=== PATIENT | male | born 1985 | race Caucasian/White ===

== ENCOUNTER 2020-07-22 16:06 | Outpatient (CLI) | payer MEDICAID, SELFPAY ==
--- NOTE | 2020-07-22 16:11 | XR_ITS ---
WS: [id number] Lumbar spine, 3 views, 07/22/2020 Clinical Data: LOW BACK PAIN Comparison: Lumbar spine, 07/19/2007. Findings: No compression fractures or subluxation is seen. No disc space narrowing is seen. The transverse proc esses and SI joints are normal. Minimal anterior osteoarthritic spurring is present at L4-L5. XR/XR lumbar spine 2-3V* [id number] Impression: Minimal osteoarthritis at L4-L5.
== END 2020-07-22 16:07 | disposition home or self-care (01) ==
PROVIDERS: PCP Nurse Practitioner Family
DX: M47.816 Spondylosis without myelopathy or radiculopathy, lumbar region (principal)
CPT/HCPCS: 72100

== ENCOUNTER 2020-08-17 15:05 | Outpatient (CLI) | payer MEDICAID, SELFPAY ==
--- NOTE | 2020-08-17 15:14 | XR_ITS ---
WS: [id number] HIP WITH PELVIS LEFT TECHNIQUE: 3 views of the left hip with pelvis CLINICAL INFORMATION: LEFT HIP PAIN COMPARISON: None. FINDINGS: Left hip is normal in appearance. No acute fractures. Normal left pubic rami. XR/XR hip LT 2-3V wo/w pel* [id number] IMPRESSION: Normal left
== END 2020-08-17 15:06 | disposition home or self-care (01) ==
PROVIDERS: PCP Nurse Practitioner Family
DX: M25.552 Pain in left hip (principal)
CPT/HCPCS: 73502

== ENCOUNTER → 2020-11-22 13:55 | Outpatient (BNVA) | payer MEDICAID, SELFPAY | PROVIDERS: PCP Nurse Practitioner Family; Visit Provider Counselor Mental Health | DX: F43.12 Post-traumatic stress disorder, chronic (principal) | CPT/HCPCS: 90834 ==

== ENCOUNTER → 2020-11-25 13:53 | Outpatient (BNVA) | payer MEDICAID, SELFPAY | PROVIDERS: PCP Nurse Practitioner Family; Visit Provider Psychiatry & Neurology Psychiatry | DX: F43.12 Post-traumatic stress disorder, chronic (principal); F12.20 Cannabis dependence, uncomplicated; F15.21 Other stimulant dependence, in remission; F11.21 Opioid dependence, in remission; F17.200 Nicotine dependence, unspecified, uncomplicated; F41.1 Generalized anxiety disorder; F33.2 Major depressive disorder, recurrent severe without psychotic features | CPT/HCPCS: 99204 ==

== ENCOUNTER → 2020-11-28 13:38 | Outpatient (BNVA) | payer MEDICAID, SELFPAY | PROVIDERS: PCP Nurse Practitioner Family; Visit Provider Nurse Practitioner Family | DX: J06.9 Acute upper respiratory infection, unspecified (principal); Z20.822 Contact with and (suspected) exposure to COVID-19 | CPT/HCPCS: 87635 ==

== ENCOUNTER → 2020-12-06 07:31 | Outpatient (BNVA) | payer MEDICAID, SELFPAY | PROVIDERS: PCP Nurse Practitioner Family; Visit Provider Counselor Mental Health | DX: F43.12 Post-traumatic stress disorder, chronic (principal); F33.2 Major depressive disorder, recurrent severe without psychotic features; F41.1 Generalized anxiety disorder; F15.21 Other stimulant dependence, in remission; F11.21 Opioid dependence, in remission | CPT/HCPCS: 90834 ==

== ENCOUNTER 2021-04-04 17:35 | Inpatient (IN) | payer MEDICARE, MEDICAID, SELFPAY ==
[2021-04-04 17:44] VITALS: BP 143/95; PULSE 93; RESP 20; TEMP 37.1; O2SAT 100; BMI 21.8
--- NOTE | 2021-04-04 18:01 | W.ED.PSYCHS ---
HPI - Psych General: Chief Complaint: Psychiatric Symptoms Stated Complaint: SI Time Seen by Provider: 04/04/21 17:46 Source: patient Mode of arrival: ambulatory Limitations: no limitations History of Present Illness: HPI Narrative: 35-year-old male who has a history of chronic pain he states he has had chronic back pain for years along with chronic neck pain he states he also has a history of depression he states is been out of all of his meds for months he has had a vehicle to go to see any of his providers including his psychiatrist at [facility] he states the pain is causing him depression he states he felt he could kill himself due to his pain. He denies suicidality or homicidality to me currently. Associated symptoms: Reports depression Review of Systems Const: Denies: fever(s), chills, body aches or change in appetite Eyes: Denies: blurry vision or eye discomfort ENMT: Denies: throat pain or dental pain Card: Denies: chest pain Resp: Denies: dyspnea GI: Denies: abdominal pain, nausea, vomiting or diarrhea : Denies: dysuria Musc: Reports: back pain Skin/Breast: Denies: rash Neuro: Denies: headache(s) Psych: Reports: depression Carlos/Lymph: Denies: easy bruising All/Imm: Denies: urticaria PFSH ED PFSH: Social History Smoking and tobacco status: current every day smoker cigarettes Packs smoked per day: 0.5 Years cigarettes smoked: 20 Quit status (tobacco): has tried quititng Number of times tried to quit tobacco: 6 Second hand smoke exposure: Yes Current gender identity: Female Physical Exam Const: COMMON NORMALS: no acute distress, patient oriented x3 and healthy appearing HENMT: COMMON NORMALS: normocephalic and atraumatic HEAD & SCALP: normocephalic and atraumatic Eye: COMMON NORMALS: Equal, round and reactive pupils present and EOMs intact bilaterally PUPIL: Yes Equal, round and reactive pupils present Neck/C-Spine: COMMON NORMALS: full ROM and supple Chest: COMMONS NORMALS: normal inspection of the chest and normal palpation of entire chest wall Resp: COMMON NORMALS: normal respiratory effort, No retractions, No use of accessory muscles and clear to auscultation bilaterally AUSCULTATION: clear to auscultation bilaterally Cardio: COMMON NORMALS: regular rate, regular rhythm and No murmurs present (Cardio) RATE: regular rate RHYTHM: regular rhythm GI: COMMON NORMALS: Normal to inspection, nondistended, normoactive bowel sounds present, Soft to palpation, non-tender and no masses PALPATION: Yes Soft to palpation Extremity: COMMON NORMALS: normal to inspection and full ROM Neuro: COMMON NORMALS: patient oriented x3, moves all extremities and no focal motor deficits Psych: COMMON NORMALS: mental status grossly normal, Normal thought process present and cooperative THOUGHT PROCESS: Normal thought process present Skin: COMMON NORMALS: no rashes or lesions noted and no wounds GENERAL SKIN EXAM: no rashes or lesions noted Course Vital Signs: Vital signs: Vital Signs Temperature 98.7 F 04/04/21 17:44 Pulse Rate 93 04/04/21 17:44 Respiratory Rate 20 H 04/04/21 17:44 Blood Pressure 143/95 04/04/21 17:44 Pulse Oximetry 100 04/04/21 17:44 MDM - Psych MDM Narrative: Medical decision making narrative: Patient presents with depression anxiety I did have him evaluated by Dr. Bay of psychiatry who felt like he needed to be admission to restart his meds as it is causing him thoughts of hurting himself or others he is not actively suicidal with a plan at this time but is voluntarily wanting to be admitted to the psych [facility] and will admit him at this time. Lab Data: Labs: Lab Results 04/04/21 04/04/21 18:00 18:00 WBC 9.6 10^3/uL 10^3/ uL (4.0-10.0) RBC 5.11 10^6/uL 10^6 /uL (4.1-5.3) Hgb 15.6 g/dL g/dL (11.7-16.6) Hct 46.7 % % (42.0-52.0) MCV 91.4 fl fl (80-94) MCH 30.5 pg pg (28.0-34.0) MCHC 33.4 g/dL g/dL (30.0-36.0) RDW 13.3 % % (12.1-15.1) Plt Count 284 10^3/cmm 10^3 /cmm (130-400) MPV 10.4 fL fL (7.4-10.4) Neut % (Auto) 60.3 % % Lymph % (Auto) 32.3 % % Callahan % (Auto) 6.3 % % Eos % (Auto) 0.5 % % Baso % (Auto) 0.4 % % Neut # (Auto) 5.80 10^3/uL 10^3 /uL (1.8-7.7) Lymph # (Auto) 3.1 10^3/uL 10^3/ uL (0.8-4.8) Callahan # (Auto) 0.6 10^3/uL 10^3/ uL (0.2-0.9) Eos # (Auto) 0.1 10^3/uL 10^3/ uL (0.0-0.8) Baso # (Auto) 0.0 10^3/uL 10^3/ uL (0.0-0.1) Nucleated RBC % (a uto) 0 % % Nucleated RBCs # 0.0 /100WBC /100W BC Sodium 139 mmol/L mmol/L (136-145) Potassium 5.2 mmol/L H mmol /L (3.5-5.1) Chloride 102 mmol/L mmol/L (98-107) Carbon Dioxide 29 mmol/L mmol/L (22-29) Anion Gap 13.2 (5-19) BUN 16 mg/dL mg/dL (6-20) Creatinine 0.8 mg/dL mg/dL (0.7-1.2) GFR Calculation 108.8 mL/min mL/m in (90-130) Glucose 89 mg/dL mg/dL (65-115) Calculated Osmolal ity 289 mOsm/kg mOsm/ kg (285-295) Calcium 9.7 mg/dL mg/dL (8.5-10.5) Total Bilirubin 0.3 mg/dL mg/dL (0.15-1.2) AST 15 U/L U/L (0-40) ALT 19 U/L U/L (0-41) Alkaline Phosphata se 86 IU/L IU/L (40-130) Total Protein 6.7 g/dL g/dL (6.6-8.7) Albumin 4.6 g/dL g/dL (3.5-5.2) Globulin 2.1 g/dL g/dL (1.3-4.6) Salicylates < 0.3 mg/dL L mg/ dL (3-10) Acetaminophen < 5.0 ug/mL L ug/ mL (10-30) Discharge Plan Discharge Patient Disposition: Admitted As Inpatient Clinical Impression: Anxiety, Chronic pain Depression Qualifiers: Depression Type: unspecified Qualified Code(s): F32.A - Depression, unspecified Condition: Stable Coding Level of Care Code ED Miter Cutter for [place] Fwd Exam Comprehensive
[2021-04-04 18:59] LABS: Basophils % 0.4 %; Eosinophils # 0.1 10^3/uL (0.0-0.8); Eosinophils % 0.5 %; Hematocrit 46.7 % (42.0-52.0); Hemoglobin 15.6 g/dL (11.7-16.6); Lymphocytes # 3.1 10^3/uL (0.8-4.8); Lymphocytes % 32.3 %; Mean Corpuscular HGB Conc 33.4 g/dL (30.0-36.0); Mean Corpuscular Hemoglobin 30.5 pg (28.0-34.0); Mean Corpuscular Volume 91.4 fl (80-94); Mean Platelet Volume 10.4 fL (7.4-10.4); Monocytes # 0.6 10^3/uL (0.2-0.9); Monocytes % 6.3 %; Neutrophils % 60.3 %; Nucleated Red Blood Cells % 0 %; Platelet Count 284 10^3/cmm (130-400); Red Blood Count 5.11 10^6/uL (4.1-5.3); Red Cell Distribution Width 13.3 % (12.1-15.1); White Blood Count 9.6 10^3/uL (4.0-10.0)
[2021-04-04 19:00] LABS: Alanine Aminotransferase 19 U/L (0-41); Albumin Level 4.6 g/dL (3.5-5.2); Alkaline Phosphatase 86 IU/L (40-130); Anion Gap 13.2 (5-19); Aspartate Amino Transferase 15 U/L (0-40); Blood Urea Nitrogen 16 mg/dL (6-20); Calcium 9.7 mg/dL (8.5-10.5); Carbon Dioxide 29 mmol/L (22-29); Chloride 102 mmol/L (98-107); Globulin 2.1 g/dL (1.3-4.6); Glomerular Filtration Rate 108.8 mL/min (90-130); Glucose 89 mg/dL (65-115); Osmolality Calculated 289 mOsm/kg (285-295); Potassium 5.2 mmol/L (3.5-5.1); Sodium 139 mmol/L (136-145); Total Bilirubin 0.3 mg/dL (0.15-1.2); Total Protein 6.7 g/dL (6.6-8.7)
[2021-04-04 19:10] LABS: Acetaminophen < 5.0 ug/mL (10-30); Salicylate < 0.3 mg/dL (3-10)
[2021-04-04] MEDS: HYDROcodone-acetaminophen 5-325 mg Tablet 1 TAB PO (21:16)
[2021-04-04 21:17] VITALS: BP 145/83; PULSE 78; RESP 18; O2SAT 94
[2021-04-04] MEDS: LORazepam 2 mg Tablet PO (21:17)
[2021-04-04] MEDS: nicotine 21 mg Patch 1 PATCH TRANSDERMA (21:17)
[2021-04-04 21:40] VITALS: BP 157/93; PULSE 107; RESP 18; O2SAT 97
[2021-04-04 22:01] VITALS: PULSE 88; RESP 18; O2SAT 96
[2021-04-04 22:18] LABS: Alcohol Level < 10 mg/dL (0-10)
[2021-04-04 22:26] LABS: Amphetamines Screen Urine Positive (Negative); Barbiturates Screen Urine Negative (Negative); Benzodiazepines Screen Urine Negative (Negative); Cocaine Screen Urine Negative (Negative); Opiate Screen Urine Negative (Negative); PCP Screen Urine Negative (Negative); THC Screen Urine Positive (Negative)
[2021-04-05 06:00] VITALS: BP 126/74; PULSE 79; RESP 17; O2SAT 98
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
--- NOTE | 2021-04-05 13:13 | NPU.GN ---
[facility] Group Topic:Group Topic:Whine Barrel Activity General Mood of Group: Nghia did attend group this morning he was participating and social. Hygiene was ok . Hos mood was ok.
[2021-04-05 13:51] VITALS: BP 140/87; PULSE 88; RESP 16; TEMP 37.6; O2SAT 95
[2021-04-05] MEDS: prazosin 5 mg Capsule PO (21:08)
[2021-04-05 22:00] VITALS: RESP 16
[2021-04-06] MEDS: cyclobenzaprine 10 mg Tablet 5 MG PO ×2 (03:47→10:06)
[2021-04-06] MEDS: hyDROXYzine 25 mg Capsule 50 MG PO ×2 (03:48→09:40)
[2021-04-06] MEDS: ibuprofen 600 mg Tablet PO ×2 (03:49→10:06)
--- NOTE | 2021-04-06 03:50 | PC.NURSE ---
Motrin 600mg PO, flexeril 5mg PO given for back pain/muscle spasm. Vistaril 50mg PO given for anxiety.
[2021-04-06 06:00] VITALS: RESP 15
[2021-04-06] MEDS: escitalopram 10 mg Tablet PO (09:03)
[2021-04-06] MEDS: OLANZapine 5 mg ODT PO (10:06)
[2021-04-06 14:00] VITALS: BP 122/81; PULSE 100; RESP 16; TEMP 36.3; O2SAT 98
[2021-04-06 19:26] VITALS: BP 122/81; PULSE 100; RESP 16; TEMP 36.3; O2SAT 98
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
== END 2021-04-06 06:35 | disposition home or self-care (01) | DRG 880 ==
LOC: ER 19:56 → NP 21:06
PROVIDERS: Family Medicine; Admitting Provider Psychiatry & Neurology Psychiatry; Emergency Provider Emergency Medicine; PCP Nurse Practitioner Family; Visit Provider Psychiatry & Neurology Psychiatry
DX: F41.1 Generalized anxiety disorder (principal); F33.2 Major depressive disorder, recurrent severe without psychotic features; G89.29 Other chronic pain; M54.9 Dorsalgia, unspecified; M54.2 Cervicalgia; F17.210 Nicotine dependence, cigarettes, uncomplicated; Z91.51 Personal history of suicidal behavior; F41.0 Panic disorder [episodic paroxysmal anxiety]; F43.12 Post-traumatic stress disorder, chronic; X58.XXXS Exposure to other specified factors, sequela; F12.20 Cannabis dependence, uncomplicated; F15.21 Other stimulant dependence, in remission; F11.21 Opioid dependence, in remission; Z81.8 Family history of other mental and behavioral disorders
CPT/HCPCS: 80053; 80306; 80307; 85025; 87400; 87426; 90471; 90686; 97150; 97165; 99285

== ENCOUNTER 2021-05-04 15:23 | Outpatient (CLI) | payer MEDICARE, MEDICAID, SELFPAY ==
--- NOTE | 2021-05-04 15:33 | XR_ITS ---
WS: [id number] LUMBAR SPINE TECHNIQUE: 5 views of the lumbar spine CLINICAL INFORMATION: Chronic back pain COMPARISON: July 22, 2020 FINDINGS: Transitional lumbosacral segment considered S1 for the purposes of this dictation. S1 is partially esperanza mbarized. 5 nonrib-bearing lumbar vertebral bodies. Mild lumbar curve. No acute compression. Disc spa ce narrowing worse at L5-S1 on S1-S2. Slight retrolisthesis L4 on L5 and L5 on S1. Moderate facet art hropathy in the lower lumbar spine. XR/XR lumbar spine min 4V [id number] IMPRESSION: 1. Transitional lumbosacral segment considered S1 for the purposes of this dic tation. S1 is partially lumbarized. 2. Disc space narrowing worse at L5-S1 and S1-S2. Disc space narrowing has pro gressed since July 22, 2020 3. Slight retrolisthesis L4 on L5 and L5 on S1.
--- NOTE | 2021-05-04 15:33 | XR_ITS ---
WS: [id number] HIP WITH PELVIS LEFT TECHNIQUE: 3 views of the left hip with pelvis CLINICAL INFORMATION: Chronic pain in back/hip COMPARISON: None. FINDINGS: Left hip is normal in appearance. No acute fractures. Normal left pubic rami. Normal femoral neck. XR/XR hip LT 2-3V wo/w pel* [id number] IMPRESSION: Normal left hip Tonnis classification: grade 0: normal radiographs
== END 2021-05-04 15:24 | disposition home or self-care (01) ==
LOC: RAD 15:28
PROVIDERS: PCP Nurse Practitioner Family; Visit Provider Nurse Practitioner Family
DX: M25.552 Pain in left hip (principal); G89.29 Other chronic pain; M54.9 Dorsalgia, unspecified; B19.20 Unspecified viral hepatitis C without hepatic coma
CPT/HCPCS: 72110; 73502; 82105; 86705; 86706; 86709; 86803; 87340; 87522

== ENCOUNTER 2021-05-06 16:33 | Emergency (ER) | payer MEDICARE, MEDICAID, SELFPAY ==
[2021-05-06 16:47] VITALS: BP 134/87; PULSE 79; RESP 16; TEMP 37.3; O2SAT 97
--- NOTE | 2021-05-06 17:45 | W.ED.WOUNDLC ---
HPI - Wound/Laceration General: Chief Complaint: Wound/Laceration Stated Complaint: rue problem Time Seen by Provider: 05/06/21 17:14 History of Present Illness: HPI narrative: Patient is a 35-year-old male comes to the ED with a lesion on right wrist. He says approximately 3 to 4 days ago it started. He woke up with 2 small puncture-like wounds on the ulnar aspect of wrist. For the past couple days it has just become red and more painful and there is a small blister in the middle of the lesion on the rest. He went and saw the urgent care and they prescribed him some mupirocin ointment to put on it. Associated symptoms: Denies chills, fever(s), nausea or vomiting Review of Systems Const: Denies: fever(s), chills or fatigue Eyes: Denies: change in vision or eye discomfort ENMT: Denies: throat pain, odynophagia, nasal discharge or nasal congestion Card: Denies: chest pain, palpitations, edema, swelling of feet/ankles, dyspnea on exertion or orthopnea Resp: Denies: dyspnea, productive cough or non-productive cough GI: Denies: abdominal pain, nausea, vomiting, diarrhea, constipation or hematochezia : Denies: flank pain, difficulty urinating, dysuria or hematuria Musc: Denies: neck pain, back pain or extremity swelling Skin/Breast: Reports: new lesions (erythemic, warm and tender lesion on left wrist); Denies: rash Neuro: Denies: headache(s), numbness in extremities or weakness in extremities [facility] ED PFSH: Medical History Psychiatric care Social History Smoking and tobacco status: current every day smoker cigarettes Packs smoked per day: 0.5 Years cigarettes smoked: 20 Quit status (tobacco): has tried quititng Number of times tried to quit tobacco: 6 Second hand smoke exposure: Yes Current gender identity: Female Physical Exam Const: COMMON NORMALS: no acute distress, patient oriented x3 and alert GENERAL APPEARANCE: cooperative and comfortable HENMT: COMMON NORMALS: normocephalic HEAD & SCALP: normocephalic MOUTH: Normal oral and palatal mucosa present THROAT: posterior oropharynx normal and uvula midline Neck/C-Spine: COMMON NORMALS: supple GENERAL: Yes normal visual inspection Resp: COMMON NORMALS: normal respiratory effort, No retractions, No use of accessory muscles and clear to auscultation bilaterally AUSCULTATION: clear to auscultation bilaterally Cardio: COMMON NORMALS: regular rate, regular rhythm, S1 normal heart sound present, S2 normal heart sound present, No gallops present (Cardio), No clicks present (Cardio), No murmurs present (Cardio) and Peripheral pulses 2+ throughout RATE: regular rate RHYTHM: regular rhythm HEART SOUNDS: S1 normal heart sound present and S2 normal heart sound present PERIPHERAL PULSES: Peripheral pulses 2+ throughout GI: COMMON NORMALS: Normal to inspection, nondistended, normoactive bowel sounds present, Soft to palpation, non-tender and no masses PALPATION: Yes Soft to palpation : COMMON NORMALS: Yes no CVA tenderness BLADDER/KIDNEY EXAM: Yes no CVA tenderness Back/Pelvis: COMMON NORMALS: no CVA tenderness Extremity: COMMON NORMALS: normal to inspection Neuro: COMMON NORMALS: patient oriented x3 and moves all extremities SENSORIUM/ORIENTATION: Yes alert Skin: NARRATIVE SKIN EXAM: Left wrist?very small ulcer with some surrounding erythema, warmth and tenderness. No purulent drainage noted. Findings suggestive of cellulitis. GENERAL SKIN EXAM: dry skin Course Vital Signs: Vital signs: Vital Signs Temperature 99.1 F 05/06/21 16:47 Pulse Rate 81 05/06/21 18:49 Respiratory Rate 16 05/06/21 18:49 Blood Pressure 142/83 05/06/21 18:49 Pulse Oximetry 99 05/06/21 18:49 MDM - Wound/Laceration MDM Narrative: Medical decision making narrative: Patient is a 35-year-old male comes to the ED with a lesion on left wrist. Findings suggestive of cellulitis. Patient was put on Bactrim for cellulitis. He was told to continue using the previously prescribed mupirocin ointment as well. Follow-up with PCP in 7 to 10 days reevaluation. Return to ED precautions given. Patient understood and agree with plan. Discharge Plan Discharge Patient Disposition: Home Clinical Impression: Cellulitis Qualifiers: Site of cellulitis: extremity Site of cellulitis of extremity: upper extremity Laterality: left Qualified Code(s): L03.114 - Cellulitis of left upper limb Condition: Stable Prescriptions: New Bactrim DS 800-160 mg tablet 1 tab PO BID 7 Days Qty: 14 RF: 0 No Action triamcinolone acetonide 0.1 % cream 1 applic topical BID Qty: 30 RF: 0 mupirocin 2 % ointment 1 applic topical BID Qty: 15 RF: 0 Discharge Orders: Discharge ED (Routine); Ordered 05/06/21 Ordered By: Tim Ann Referrals: Vashti Valentine FNP-C [Primary Care Provider] - Discharge Diet: Regular Discharge Activity: Resume usual activity Patient Instructions: Cellulitis (ED) Activity Restrictions/Additional Instructions: Follow-up with medical provider as directed in 5 to 7 days for reevaluation. Take medications as prescribed. Apply the mupirocin ointment twice a day on area of cellulitis as well. Return to the ER or your medical provider if condition worsens. Please read and understand discharge instructions. Thank you for choosing [facility] for your healthcare needs today. Please realize this is an emergency room and that we are providing you with a medical screening exam and this may not be complete and all inclusive of all the testing and or work up that you may need to determine your ailment or severity of your illness. It is very important that you follow up as instructed or that you return to the Emergency Department should you have concerns or if your condition changes or worsens in any way. Coding Level of Care Code ED Numerical Control Router Operator for Julito Brumfield
[2021-05-06] MEDS: sulfamethoxazole-trimeth DS 160-800 mg Tablet 1 TAB PO (18:48)
[2021-05-06 18:49] VITALS: BP 142/83; PULSE 81; RESP 16; O2SAT 99
--- NOTE | 2021-05-06 18:49 | PC.NURSE ---
see providers note for assessment
== END 2021-05-06 18:50 | disposition home or self-care (01) ==
PROVIDERS: Emergency Provider Physician Assistant; PCP Nurse Practitioner Family
DX: L03.114 Cellulitis of left upper limb (principal); F17.210 Nicotine dependence, cigarettes, uncomplicated
CPT/HCPCS: 99283

== ENCOUNTER 2021-06-01 08:32 | Outpatient (CLI) | payer MEDICARE, MEDICAID, SELFPAY ==
[2021-06-01 10:54] LABS: Testosterone Total 472.2 ng/dL (249-836)
== END 2021-06-01 08:33 | disposition home or self-care (01) ==
LOC: LAB 08:35
PROVIDERS: PCP Nurse Practitioner Family; Visit Provider Nurse Practitioner Family
DX: N52.9 Male erectile dysfunction, unspecified (principal)
CPT/HCPCS: 84403

== ENCOUNTER 2021-06-27 09:52 | Outpatient (CLI) | payer MEDICARE, MEDICAID, SELFPAY ==
--- NOTE | 2021-06-27 10:00 | MR_ITS ---
WS: [id number] MRI LUMBAR SPINE NONCONTRAST TECHNIQUE: Sagittal T1, T2 and STIR imaging. Axial T1 and T2 imaging. CLINICAL INFORMATION: Radiculopathy of lower back. Loss of sensation COMPARISON: None. FINDINGS: Counting performed from the craniocervical junction. S1 is partially lumbarized. Mild lumbar curve. N o acute compression. Disc bulging worse L5-S1 with endplate degenerative edema. L1-L2: Normal L2-L3: Mild annular bulging. Spinal canal and foramen are patent L3-L4: Mild annular bulging. Spinal canal and foramen are patent. L4-L5: Mild annular bulging with slight effacement of ventral thecal sac. Mild facet arthropathy. Spi nal canal and foramen are patent. Slight narrowing of the subarticular recess bilaterally. L5-S1: Mild annular bulging with mild central canal stenosis. Impingement on the traversing S1 nerve roots bilaterally in the subarticular recess. Bilateral foraminal protrusions with mild to moderate L EFT greater than RIGHT foraminal narrowing and slight impingement on the exiting S1 nerve roots. Mild to moderate facet arthropathy. S1-S2: S1 is partially lumbarized. Spinal canal and foramen are patent. Mild facet arthropathy. Rudim entary disc space at this level. MR/MR lumbar spine wo con* [id number] IMPRESSION: 1. Mild lumbar curve. No acute compression. 2. Counting performed from the craniocervical junction. S1 is partially lumbar ized. 3. Disc bulging worse L5-S1 with degenerative endplate-type changes. Mild cent ral canal stenosis at this level with impingement on the traversing S1 nerve ro ots bilaterally. Mild to moderate facet arthropathy this level. 4. Mild to moderate bilateral L5-S1 foraminal narrowing worse in the LEFT impi nges the exiting S1 nerve roots bilaterally. 5. Slight annular bulging L4-L5 with slight effacement of ventral thecal sac. Minimal narrowing of the subarticular recess. 6. Mild facet arthropathy L4-L5.
== END 2021-06-27 09:53 | disposition home or self-care (01) ==
LOC: RAD 09:54
PROVIDERS: PCP Nurse Practitioner Family; Visit Provider Nurse Practitioner Family
DX: M54.17 Radiculopathy, lumbosacral region (principal); R20.9 Unspecified disturbances of skin sensation; M51.27 Other intervertebral disc displacement, lumbosacral region; M47.817 Spondylosis without myelopathy or radiculopathy, lumbosacral region; M51.26 Other intervertebral disc displacement, lumbar region; M47.816 Spondylosis without myelopathy or radiculopathy, lumbar region
CPT/HCPCS: 72148

== ENCOUNTER 2021-06-28 07:37 | Outpatient (CLI) | payer MEDICARE, MEDICAID, SELFPAY ==
--- NOTE | 2021-06-28 08:00 | US_ITS ---
WS: [id number] RIGHT UPPER QUADRANT ULTRASOUND HISTORY: Hepatitis C COMPARISON: None available. Liver: 15.2 cm in length. Normal size liver. No bile duct dilatation or mass. Portal Vein: Normal hepatopetal flow with monophasic waveform. Gallbladder: There are tiny mobile stones within the gallbladder lumen that are really only seen with the patient in LPO position. No Croft sign. No pericholecystic fluid. CBD: 0.4 cm Pancreas: Normal size and echogenicity. Right kidney: 10.5 cm in length. Normal size and echogenicity. No hydronephrosis or mass. Aorta and IVC: Unremarkable abdominal aorta and IVC. No ascites. US/US liver [id number] IMPRESSION: Cholelithiasis, multiple tiny gallstones are identified. Otherwise negative.
== END 2021-06-28 07:38 | disposition home or self-care (01) ==
LOC: RAD 07:38
PROVIDERS: PCP Nurse Practitioner Family; Visit Provider Nurse Practitioner Family
DX: B19.20 Unspecified viral hepatitis C without hepatic coma (principal); K80.20 Calculus of gallbladder without cholecystitis without obstruction
CPT/HCPCS: 76705

== ENCOUNTER 2021-07-18 10:50 | Emergency (ER) | payer MEDICARE, MEDICAID, SELFPAY ==
[2021-07-18 10:55] VITALS: BP 149/105; PULSE 97; RESP 18; TEMP 36.4; O2SAT 97; BMI 22.9
--- NOTE | 2021-07-18 11:00 | ED_ITS ---
HPI - Back Pain/Injury General: Chief Complaint: Back Pain/Injury Stated Complaint: Back problem Time Seen by Provider: 07/18/21 10:56 Source: patient Mode of arrival: ambulatory Limitations: no limitations History of Present Illness: Patient is a 36-year-old male who presents to ED today with a complaint of acute on chronic lower back pain. Patient states he has suffered from lower back pain ever since he was a child. Patient recently had an MRI performed last month-results are as follows: MR/MR lumbar spine wo con* [id number] IMPRESSION: ? 1.? Mild lumbar curve. No acute compression. 2.? Counting performed from the craniocervical junction. S1 is partially esperanza mbarized. 3.? Disc bulging worse L5-S1 with degenerative endplate-type changes. Mild central canal stenosis at this level with impingement on the traversing S1 nerve roots bilaterally. Mild to moderate facet arthropathy this level. 4.? Mild to moderate bilateral L5-S1 foraminal narrowing worse in the LEFT impinges the exiting S1 nerve roots bilaterally. 5.? Slight annular bulging L4-L5 with slight effacement of ventral thecal sac. Minimal narrowing of the subarticular recess. 6.? Mild facet arthropathy L4-L5. Patient met with Dr. Quinones on 07/06 for evaluation and to go over results of his recent MRI. His recommendations were physical therapy, referral to Dr. Fan/pain management for injections and starting patient on Lyrica and prednisone taper. Patient states 2 days ago his girlfriend/fianc? laid on his back and he immediately began experiencing an acute on chronic left lower back pain. He currently is rating his pain at a 10 times a billion . He states his pain today/currently feels identical to his chronic pain-only worse in severity. He does not complain of any urinary or bowel dysfunction. Denies saddle anesthesia. Patient was able to ambulate to his room. MD elicited complaint: back pain Pertinent past history: prior back pain Onset (ago): day(s) Timing: constant Severity: severe Similar Symptoms Previously: Yes Location: lumbar spine and left lower back Exacerbating factors: movement, walking, coughing/sneezing and lifting Relieving factors: none Associated symptoms: Deny abdominal pain, chills, dysuria, fatigue, fever(s) or hematuria Work related injury: No Review of Systems Const: Denies: fever(s), chills, body aches, fatigue or malaise Card: Denies: chest pain Resp: Denies: dyspnea GI: Denies: abdominal pain : Denies: flank pain, dysuria or hematuria Musc: Reports: back pain; Denies: neck pain, extremity pain, extremity swelling, joint pain or joint swelling Skin/Breast: Denies: rash Neuro: Denies: headache(s), numbness in extremities, weakness in extremities, sensory changes or dizziness PFSH ED PFSH: Medical History Psychiatric care Social History Smoking and tobacco status: current every day smoker (1/2 pack per day ) cigarettes Packs smoked per day: 0.5 Years cigarettes smoked: 20 Quit status (tobacco): has tried quititng Number of times tried to quit tobacco: 6 Second hand smoke exposure: Yes Current gender identity: Female Physical Exam Const: COMMON NORMALS: average body habitus, patient oriented x3, no limitations, alert and well nourished GENERAL APPEARANCE: cooperative and in distress (secondary to back discomfort ) ORIENTATION/CONSCIOUSNESS: Yes awake, Yes oriented to person, Yes oriented to place and Yes oriented to time OTHER: patient is lying on his stomach hanging off the bed; he states he is not able to move or sit up for examination HENMT: COMMON NORMALS: normocephalic and atraumatic HEAD & SCALP: normal to inspection, normocephalic and atraumatic Resp: COMMON NORMALS: normal respiratory effort and clear to auscultation bilaterally AUSCULTATION: clear to auscultation bilaterally : COMMON NORMALS: Yes no CVA tenderness BLADDER/KIDNEY EXAM: Yes no CVA tenderness Back/Pelvis: COMMON NORMALS: no CVA tenderness THORACIC SPINE/UPPER BACK: Yes normal to inspection, No thoracic spinal tenderness, No paraspinal muscle tenderness and No paraspinal muscle spasm LUMBAR SPINE/LOWER BACK: Yes paraspinal muscle tenderness Lumbar paraspinal muscle tenderness: left and Yes paraspinal muscle spasm PELVIS: Yes buttocks normal SACROILIAC JOINTS: Yes SI joint(s) abnormal SI joint details: tender to palpation BACK IMAGE (MALE): 1. TTP Extremity: COMMON NORMALS: normal to inspection GENERAL: Yes normal exam except as noted Neuro: SANDRA COMA SCALE: document GCS findings [place] coma scale eye opening: Spontaneous [place] coma scale verbal response: Orientated [place] coma scale motor response: Obey commands [place] coma scale total score: 15 COMMON NORMALS: patient oriented x3, moves all extremities, no focal motor deficits and no sensory deficits noted SENSORIUM/ORIENTATION: Yes alert, Yes oriented to person, Yes oriented to place and Yes oriented to time Skin: COMMON NORMALS: no rashes or lesions noted GENERAL SKIN EXAM: no rashes or lesions noted Course Vital Signs: Vital signs: Vital Signs Temperature 98.2 F 07/18/21 12:23 Pulse Rate 71 07/18/21 12:23 Respiratory Rate 22 H 07/18/21 12:23 Blood Pressure 171/78 07/18/21 12:23 Pulse Oximetry 96 07/18/21 12:23 MDM - Back Pain/Injury Medical Decision Making Patient here with acute on chronic lower back pain. He has no acute neurologic deficits. After IM medications patient is now seated in bed. He reports relief is fairly minimal however he clinically appears much more comfortable. Patient was recently started on Lyrica over a week ago by Dr. Quinones at a low dose of 25 mg twice daily. We will increase this and place patient on a muscle relaxer as well as an anti-inflammatory. He just finished a prednisone taper. Recommend continuing current plan for follow-up with pain management and physical therapy. Discharge Plan Discharge Patient Disposition: Home Clinical Impression: Acute exacerbation of chronic low back pain Condition: Stable Prescriptions: New diclofenac sodium 50 mg tablet,delayed release (DR/EC) 50 mg PO Q12H PRN (Reason: pain) Qty: 20 0RF methocarbamol 750 mg tablet 1,500 mg PO Q8H Qty: 30 0RF Lyrica 75 mg capsule 75 mg PO Q8H Qty: 90 0RF No Action triamcinolone acetonide 0.1 % cream 1 applic topical BID Qty: 30 0RF methadone 5 mg tablet 5 mg PO DAILY 0RF paroxetine HCl [Paxil] 20 mg tablet 20 mg PO DAILY Qty: 30 0RF mupirocin 2 % ointment 1 applic topical BID Qty: 15 0RF pregabalin [Lyrica] 25 mg capsule 25 mg PO TID Qty: 90 0RF Rx Instructions: one tab three times a day. prednisone 20 mg tablet 20 mg PO DAILY Qty: 15 0RF Rx Instructions: 60mg on day 1,2,3 40mg on day 4,5 20mg on day 6,7 Discharge Orders: Discharge ED (Routine); Ordered 07/18/21 Ordered By: Jyothi Guzman Coding Level of Care Code ED Bio Medical Technician for Chg Fwd Exam Comprehensive
[2021-07-18] MEDS: ketorolac 60 mg/2 mL INJ IM (11:12)
[2021-07-18] MEDS: dexamethasone 10 mg/mL INJ 8 MG IM (11:14)
[2021-07-18] MEDS: orphenadrine 30 mg/mL Inj 2 mL 60 MG IM (11:14)
[2021-07-18 11:18] VITALS: BP 155/107; PULSE 88; RESP 22; TEMP 36.8; O2SAT 96
[2021-07-18 11:51] VITALS: RESP 18; O2SAT 95
[2021-07-18] MEDS: morphine 4 mg/mL SDV 1 mL IM (11:51)
[2021-07-18 12:23] VITALS: BP 171/78; PULSE 71; RESP 22; TEMP 36.8; O2SAT 96
== END 2021-07-18 12:30 | disposition home or self-care (01) ==
PROVIDERS: Emergency Provider Physician Assistant
DX: G89.29 Other chronic pain (principal); M54.50 Low back pain, unspecified; Z79.891 Long term (current) use of opiate analgesic; F17.210 Nicotine dependence, cigarettes, uncomplicated
CPT/HCPCS: 96372; 99214; 99283; J1100; J1885; J2270; J2360

== ENCOUNTER 2021-07-22 14:46 | Emergency (ER) | payer MEDICARE, MEDICAID, SELFPAY ==
[2021-07-22 14:58] VITALS: BP 143/87; PULSE 71; RESP 20; TEMP 36.6; O2SAT 93; BMI 21.8
--- NOTE | 2021-07-22 15:15 | W.ED.NAVMDI ---
Documented by User: ANDREA Velazco 07/22/21 16:46 HPI - Nausea/Vomiting/Diarrhea General: Chief complaint: Nausea/Vomiting/Diarrhea Stated complaint: n/v Time Seen by Provider: 07/22/21 15:12 History of Present Illness: Patient states has had nausea and vomiting for the last 4 days. Patient said he took Seroquel for the first time the day before he started vomiting. Has not been able to take it since. Patient currently under methadone treatment is been doing that clinic for a long time. Patient used to smoke marijuana consistently and had a medical card but he says he is not been able to smoke marijuana since he has been in the clinic and he just had a clean urine drug test the other day. Denies any fever chills. Denies any pain in his abdomen. Associated nausea: Yes Associated symtoms: Reports nausea; Denies chest pain or headache(s) Review of Systems Const: Denies: fever(s), chills or body aches Eyes: Denies: eye discomfort ENMT: Denies: throat pain Card: Denies: chest pain Resp: Denies: dyspnea GI: Reports: nausea and vomiting; Denies: abdominal pain or diarrhea Skin/Breast: Denies: rash Neuro: Denies: headache(s) Psych: Denies: depression or suicidal ideation PFSH ED PFSH: Medical History Psychiatric care Social History Smoking and tobacco status: current every day smoker (1/2 pack per day ) cigarettes Packs smoked per day: 0.5 Years cigarettes smoked: 20 Quit status (tobacco): has tried quititng Number of times tried to quit tobacco: 6 Second hand smoke exposure: Yes Current gender identity: Female Physical Exam Const: COMMON NORMALS: no acute distress, patient oriented x3 and alert HENMT: COMMON NORMALS: normocephalic and external ears normal HEAD & SCALP: normocephalic EXTERNAL EAR: Yes external ears normal Eye: COMMON NORMALS: EOMs intact bilaterally Neck/C-Spine: COMMON NORMALS: no JVD Resp: COMMON NORMALS: normal respiratory effort and No use of accessory muscles Cardio: COMMON NORMALS: no JVD GI: INSPECTION: Yes normal to inspection Extremity: COMMON NORMALS: normal to inspection and full ROM Neuro: COMMON NORMALS: patient oriented x3 SENSORIUM/ORIENTATION: Yes alert Psych: COMMON NORMALS: mental status grossly normal Skin: COMMON NORMALS: no rashes or lesions noted GENERAL SKIN EXAM: no rashes or lesions noted Course Vital Signs: Vital signs: Vital Signs Temperature 97.8 F 07/22/21 14:58 Pulse Rate 71 07/22/21 14:58 Respiratory Rate 20 H 07/22/21 14:58 Blood Pressure 143/87 07/22/21 14:58 Pulse Oximetry 93 07/22/21 14:58 MDM - Nausea/Vomiting/Diarrhea Medical Decision Making Patient presents with 4-day history of vomiting and nausea. Currently in methadone treatment patient was a one-time heavy marijuana smoker. Nausea vomiting unexplained from labs. Could be the medication he started the other day that he has not taken last 4 days. Advised to follow-up with primary care provider discussed medication use needs stay away from marijuana drink plenty clear fluids. Lab Data : 07/22/21 15:16 07/22/21 15:16 Laboratory Results WBC 10.3 10^3/uL (4.0-10.0) H 07/22/21 15:16 RBC 5.30 10^6/uL (4.1-5.3) 07/22/21 15:16 Hgb 15.6 g/dL (11.7-16.6) 07/22/21 15:16 Hct 46.8 % (42.0-52.0) 07/22/21 15:16 MCV 88.3 fl (80-94) 07/22/21 15:16 MCH 29.4 pg (28.0-34.0) 07/22/21 15:16 MCHC 33.3 g/dL (30.0-36.0) 07/22/21 15:16 RDW 12.8 % (12.1-15.1) 07/22/21 15:16 Plt Count 229 10^3/cmm (130-400) 07/22/21 15:16 MPV 9.4 fL (7.4-10.4) 07/22/21 15:16 Neut % (Auto) 54.3 % 07/22/21 15:16 Lymph % (Auto) 37.8 % 07/22/21 15:16 [place] % (Auto) 6.1 % 07/22/21 15:16 Eos % (Auto) 0.9 % 07/22/21 15:16 Baso % (Auto) 0.5 % 07/22/21 15:16 Neut # (Auto) 5.60 10^3/uL (1.8-7.7) 07/22/21 15:16 Lymph # (Auto) 3.9 10^3/uL (0.8-4.8) 07/22/21 15:16 [place] # (Auto) 0.6 10^3/uL (0.2-0.9) 07/22/21 15:16 Eos # (Auto) 0.1 10^3/uL (0.0-0.8) 07/22/21 15:16 Baso # (Auto) 0.1 10^3/uL (0.0-0.1) 07/22/21 15:16 Nucleated RBC % (auto) 0 % 07/22/21 15:16 Nucleated RBCs # 0.0 /100WBC 07/22/21 15:16 Sodium 140 mmol/L (136-145) 07/22/21 15:16 Potassium 3.9 mmol/L (3.5-5.1) 07/22/21 15:16 Chloride 97 mmol/L (98-107) L 07/22/21 15:16 Carbon Dioxide 31 mmol/L (22-29) H 07/22/21 15:16 Anion Gap 15.9 (5-19) 07/22/21 15:16 BUN 17 mg/dL (6-20) 07/22/21 15:16 Creatinine 0.8 mg/dL (0.7-1.2) 07/22/21 15:16 GFR Calculation 108.2 mL/min (90-130) 07/22/21 15:16 Glucose 78 mg/dL (65-115) 07/22/21 15:16 Calculated Osmolality 290 mOsm/kg (285-295) 07/22/21 15:16 Calcium 9.9 mg/dL (8.5-10.5) 07/22/21 15:16 Total Bilirubin 0.2 mg/dL (0.15-1.2) 07/22/21 15:16 AST 22 U/L (0-40) 07/22/21 15:16 ALT 16 U/L (0-41) 07/22/21 15:16 Alkaline Phosphatase 74 IU/L (40-130) 07/22/21 15:16 Total Protein 7.2 g/dL (6.6-8.7) 07/22/21 15:16 Albumin 4.7 g/dL (3.5-5.2) 07/22/21 15:16 Globulin 2.5 g/dL (1.3-4.6) 07/22/21 15:16 Lipase 22 U/L (13-60) 07/22/21 15:16 Urine Color Yellow (Yellow) 07/22/21 15:23 Urine Appearance Clear (CLEAR) 07/22/21 15:23 Urine pH 7 (5-7) 07/22/21 15:23 Ur Specific [place] 1.010 (1.005-1.030) 07/22/21 15:23 Urine Protein Neg (Negative) 07/22/21 15:23 Urine Glucose (UA) Norm (Normal) 07/22/21 15:23 Urine Ketones Negative (Negative) 07/22/21 15:23 Urine Blood Neg (Negative) 07/22/21 15:23 Urine Nitrate Negative (Negative) 07/22/21 15:23 Urine Bilirubin Neg (Negative) 07/22/21 15:23 Urine Urobilinogen Norm mg/dL (Negative) 07/22/21 15:23 Ur Leukocyte Esterase Negative (Negative) 07/22/21 15:23 Discharge Plan Discharge Patient Disposition: Home Clinical Impression: Mild nausea and vomiting Condition: Stable Prescriptions: New Zofran 4 mg tablet 4 mg PO Q8H 3 Days Qty: 9 0RF No Action triamcinolone acetonide 0.1 % cream 1 applic topical BID Qty: 30 0RF quetiapine [Seroquel] 50 mg tablet 50 mg PO .HS Qty: 30 0RF sertraline [Zoloft] 50 mg tablet 50 mg PO DAILY Qty: 30 0RF methadone 5 mg tablet 5 mg PO DAILY 0RF mupirocin 2 % ointment 1 applic topical BID Qty: 15 0RF diclofenac sodium 50 mg tablet,delayed release (DR/EC) 50 mg PO Q12H PRN (Reason: pain) Qty: 20 0RF methocarbamol 750 mg tablet 1,500 mg PO Q8H Qty: 30 0RF pregabalin [Lyrica] 75 mg capsule 75 mg PO Q8H Qty: 90 0RF Discharge Orders: Discharge ED (Routine); Ordered 07/22/21 Ordered By: Luis Alberto Milelr Discharge Diet: Advance as tolerated Discharge Activity: Increase activity as tolerated Patient Instructions: Acute Nausea and Vomiting (ED) Activity Restrictions/Additional Instructions: Follow-up with medical provider as directed. Take medications as prescribed. Return to the ER or your medical provider if condition worsens. Please read and understand discharge instructions. If any questions ask please. Coding Level of Care Code ED Resource Recovery Specialist for Chg Fwd Exam Comprehensive Documented by User: Gustavo Liang DO 07/22/21 19:48 HPI - Nausea/Vomiting/Diarrhea General: Chief complaint: Nausea/Vomiting/Diarrhea Stated complaint: n/v Time Seen by Provider: 07/22/21 15:12 PFSH ED PFSH: Medical History Psychiatric care Social History Smoking and tobacco status: current every day smoker (1/2 pack per day ) cigarettes Packs smoked per day: 0.5 Years cigarettes smoked: 20 Quit status (tobacco): has tried quititng Number of times tried to quit tobacco: 6 Second hand smoke exposure: Yes Current gender identity: Female Course ED course: I was and attending physician present on duty in the emergency department when this patient was seen by the midlevel provider. This case was not discussed with me. I did not personally see or interview or evaluate this patient. This chart is being signed as a matter of department policy. Vital Signs: Vital signs: Vital Signs Temperature 97.8 F 07/22/21 14:58 Pulse Rate 71 07/22/21 14:58 Respiratory Rate 20 H 07/22/21 14:58 Blood Pressure 143/87 07/22/21 14:58 Pulse Oximetry 93 07/22/21 14:58 MDM - Nausea/Vomiting/Diarrhea Lab Data : 07/22/21 15:16 07/22/21 15:16 Laboratory Results WBC 10.3 10^3/uL (4.0-10.0) H 07/22/21 15:16 RBC 5.30 10^6/uL (4.1-5.3) 07/22/21 15:16 Hgb 15.6 g/dL (11.7-16.6) 07/22/21 15:16 Hct 46.8 % (42.0-52.0) 07/22/21 15:16 MCV 88.3 fl (80-94) 07/22/21 15:16 MCH 29.4 pg (28.0-34.0) 07/22/21 15:16 MCHC 33.3 g/dL (30.0-36.0) 07/22/21 15:16 RDW 12.8 % (12.1-15.1) 07/22/21 15:16 Plt Count 229 10^3/cmm (130-400) 07/22/21 15:16 MPV 9.4 fL (7.4-10.4) 07/22/21 15:16 Neut % (Auto) 54.3 % 07/22/21 15:16 Lymph % (Auto) 37.8 % 07/22/21 15:16 [place] % (Auto) 6.1 % 07/22/21 15:16 Eos % (Auto) 0.9 % 07/22/21 15:16 Baso % (Auto) 0.5 % 07/22/21 15:16 Neut # (Auto) 5.60 10^3/uL (1.8-7.7) 07/22/21 15:16 Lymph # (Auto) 3.9 10^3/uL (0.8-4.8) 07/22/21 15:16 [place] # (Auto) 0.6 10^3/uL (0.2-0.9) 07/22/21 15:16 Eos # (Auto) 0.1 10^3/uL (0.0-0.8) 07/22/21 15:16 Baso # (Auto) 0.1 10^3/uL (0.0-0.1) 07/22/21 15:16 Nucleated RBC % (auto) 0 % 07/22/21 15:16 Nucleated RBCs # 0.0 /100WBC 07/22/21 15:16 Sodium 140 mmol/L (136-145) 07/22/21 15:16 Potassium 3.9 mmol/L (3.5-5.1) 07/22/21 15:16 Chloride 97 mmol/L (98-107) L 07/22/21 15:16 Carbon Dioxide 31 mmol/L (22-29) H 07/22/21 15:16 Anion Gap 15.9 (5-19) 07/22/21 15:16 BUN 17 mg/dL (6-20) 07/22/21 15:16 Creatinine 0.8 mg/dL (0.7-1.2) 07/22/21 15:16 GFR Calculation 108.2 mL/min (90-130) 07/22/21 15:16 Glucose 78 mg/dL (65-115) 07/22/21 15:16 Calculated Osmolality 290 mOsm/kg (285-295) 07/22/21 15:16 Calcium 9.9 mg/dL (8.5-10.5) 07/22/21 15:16 Total Bilirubin 0.2 mg/dL (0.15-1.2) 07/22/21 15:16 AST 22 U/L (0-40) 07/22/21 15:16 ALT 16 U/L (0-41) 07/22/21 15:16 Alkaline Phosphatase 74 IU/L (40-130) 07/22/21 15:16 Total Protein 7.2 g/dL (6.6-8.7) 07/22/21 15:16 Albumin 4.7 g/dL (3.5-5.2) 07/22/21 15:16 Globulin 2.5 g/dL (1.3-4.6) 07/22/21 15:16 Lipase 22 U/L (13-60) 07/22/21 15:16 Urine Color Yellow (Yellow) 07/22/21 15:23 Urine Appearance Clear (CLEAR) 07/22/21 15:23 Urine pH 7 (5-7) 07/22/21 15:23 Ur Specific [place] 1.010 (1.005-1.030) 07/22/21 15:23 Urine Protein Neg (Negative) 07/22/21 15:23 Urine Glucose (UA) Norm (Normal) 07/22/21 15:23 Urine Ketones Negative (Negative) 07/22/21 15:23 Urine Blood Neg (Negative) 07/22/21 15:23 Urine Nitrate Negative (Negative) 07/22/21 15:23 Urine Bilirubin Neg (Negative) 07/22/21 15:23 Urine Urobilinogen Norm mg/dL (Negative) 07/22/21 15:23 Ur Leukocyte Esterase Negative (Negative) 07/22/21 15:23 Discharge Plan Discharge Patient Disposition: Home Clinical Impression: Mild nausea and vomiting Condition: Stable Prescriptions: New Zofran 4 mg tablet 4 mg PO Q8H 3 Days Qty: 9 0RF No Action triamcinolone acetonide 0.1 % cream 1 applic topical BID Qty: 30 0RF quetiapine [Seroquel] 50 mg tablet 50 mg PO .HS Qty: 30 0RF sertraline [Zoloft] 50 mg tablet 50 mg PO DAILY Qty: 30 0RF methadone 5 mg tablet 5 mg PO DAILY 0RF mupirocin 2 % ointment 1 applic topical BID Qty: 15 0RF diclofenac sodium 50 mg tablet,delayed release (DR/EC) 50 mg PO Q12H PRN (Reason: pain) Qty: 20 0RF methocarbamol 750 mg tablet 1,500 mg PO Q8H Qty: 30 0RF pregabalin [Lyrica] 75 mg capsule 75 mg PO Q8H Qty: 90 0RF Discharge Orders: Discharge ED (Routine); Ordered 07/22/21 Ordered By: Luis Alberto Miller Discharge Diet: Advance as tolerated Discharge Activity: Increase activity as tolerated Patient Instructions: Acute Nausea and Vomiting (ED) Activity Restrictions/Additional Instructions: Follow-up with medical provider as directed. Take medications as prescribed. Return to the ER or your medical provider if condition worsens. Please read and understand discharge instructions. If any questions ask please. Coding Level of Care Code ED Resource Recovery Specialist for Julito Fwd Exam Comprehensive
[2021-07-22] MEDS: sodium chloride 0.9% 1,000 ML 999 ML IV (15:24)
[2021-07-22] MEDS: ondansetron 2 mg/ML SDV 2 mL 4 MG IVP (15:25)
[2021-07-22 15:46] LABS: Basophils # 0.1 10^3/uL (0.0-0.1); Basophils % 0.5 %; Eosinophils # 0.1 10^3/uL (0.0-0.8); Eosinophils % 0.9 %; Hematocrit 46.8 % (42.0-52.0); Hemoglobin 15.6 g/dL (11.7-16.6); Lymphocytes # 3.9 10^3/uL (0.8-4.8); Lymphocytes % 37.8 %; Mean Corpuscular HGB Conc 33.3 g/dL (30.0-36.0); Mean Corpuscular Hemoglobin 29.4 pg (28.0-34.0); Mean Corpuscular Volume 88.3 fl (80-94); Mean Platelet Volume 9.4 fL (7.4-10.4); Monocytes # 0.6 10^3/uL (0.2-0.9); Monocytes % 6.1 %; Neutrophils % 54.3 %; Nucleated Red Blood Cells % 0 %; Platelet Count 229 10^3/cmm (130-400); Red Cell Distribution Width 12.8 % (12.1-15.1); White Blood Count 10.3 10^3/uL (4.0-10.0)
[2021-07-22 16:08] LABS: Alanine Aminotransferase 16 U/L (0-41); Albumin Level 4.7 g/dL (3.5-5.2); Alkaline Phosphatase 74 IU/L (40-130); Anion Gap 15.9 (5-19); Aspartate Amino Transferase 22 U/L (0-40); Blood Urea Nitrogen 17 mg/dL (6-20); Calcium 9.9 mg/dL (8.5-10.5); Carbon Dioxide 31 mmol/L (22-29); Chloride 97 mmol/L (98-107); Globulin 2.5 g/dL (1.3-4.6); Glomerular Filtration Rate 108.2 mL/min (90-130); Glucose 78 mg/dL (65-115); Lipase 22 U/L (13-60); Osmolality Calculated 290 mOsm/kg (285-295); Potassium 3.9 mmol/L (3.5-5.1); Sodium 140 mmol/L (136-145); Total Bilirubin 0.2 mg/dL (0.15-1.2); Total Protein 7.2 g/dL (6.6-8.7)
[2021-07-22 16:19] LABS: Add Urine Microscopic? NO; Charge for UA Resulting for Rev
[2021-07-22 16:25] LABS: Bilirubin Urine Neg (Negative); Blood Urine Neg (Negative); Glucose Urine UA Norm (Normal); Ketones Urine Negative (Negative); Leukocyte Esterase Urine Negative (Negative); Nitrate Urine Negative (Negative); Protein Urine Neg (Negative); Urine Appearance Clear (CLEAR); Urine Color Yellow (Yellow); Urobilinogen Urine Norm (Negative); pH Urine 7 (5-7)
== END 2021-07-22 16:54 | disposition home or self-care (01) ==
PROVIDERS: Emergency Provider Nurse Practitioner Family
DX: R11.2 Nausea with vomiting, unspecified (principal); Z79.891 Long term (current) use of opiate analgesic; F17.210 Nicotine dependence, cigarettes, uncomplicated
CPT/HCPCS: 80053; 81003; 83690; 85025; 96361; 96374; 99283; J2405; J7030

== ENCOUNTER → 2021-08-09 09:25 | Outpatient (BNVA) | payer MEDICARE, MEDICAID, SELFPAY | PROVIDERS: Visit Provider Anesthesiology Pain Medicine | DX: M48.062 Spinal stenosis, lumbar region with neurogenic claudication (principal); M51.26 Other intervertebral disc displacement, lumbar region; M47.816 Spondylosis without myelopathy or radiculopathy, lumbar region; M79.604 Pain in right leg; M79.605 Pain in left leg; F17.210 Nicotine dependence, cigarettes, uncomplicated | CPT/HCPCS: 99204 ==

== ENCOUNTER 2021-08-15 10:36 | Emergency (ER) | payer MEDICARE, MEDICAID, SELFPAY ==
[2021-08-15 11:12] VITALS: BP 147/88; PULSE 80; RESP 18; TEMP 36.7; O2SAT 99; BMI 21.8
--- NOTE | 2021-08-15 11:23 | ED_ITS ---
Documented by User: XIN Carbajal 08/15/21 13:19 HPI - Back Pain/Injury General: Chief Complaint: Back Pain/Injury Stated Complaint: severe back pain Time Seen by Provider: 08/15/21 11:19 Source: patient Mode of arrival: wheelchair Limitations: no limitations History of Present Illness: Patient is a 36-year-old male known to me here for complaints of acute on chronic lower back pain. Patient has a longstanding history of lower back pain. He recently met with Dr. Leonard and plan is for MBB/RFA that is scheduled in 2 weeks. Patient states he was taking Flexeril and Lyrica at home and states these medications were making his pain tolerable but has ran out. Previous documentation and MRI results reviewed. Patient is not having any new concerns or neurologic deficits today. He states his pain is his chronic pain-only worse in intensity. MD elicited complaint: back pain Pertinent past history: prior back pain Onset (ago): day(s) Timing: constant Severity: severe Pain scale (0-10): 10 Similar Symptoms Previously: Yes Location: lumbar spine Radiation: none Exacerbating factors: movement, sitting upright, walking and lifting Relieving factors: none Associated symptoms: Deny chills, fatigue or fever(s) Work related injury: No Review of Systems Const: Denies: fever(s), chills, body aches, fatigue or malaise Card: Denies: chest pain Resp: Denies: dyspnea : Denies: difficulty urinating or urinary incontinence Musc: Reports: back pain; Denies: neck pain, extremity pain or joint pain Skin/Breast: Denies: rash Neuro: Denies: numbness in extremities, weakness in extremities or sensory changes PFS ED PFSH: Medical History Psychiatric care Social History Smoking and tobacco status: current every day smoker cigarettes Packs smoked per day: 0.5 Years cigarettes smoked: 20 Quit status (tobacco): has tried quititng Number of times tried to quit tobacco: 6 Second hand smoke exposure: Yes Current gender identity: Female Physical Exam Const: COMMON NORMALS: patient oriented x3, no limitations and alert GENERAL APPEARANCE: cooperative and in distress (lying in floor leaning over recliner) Back/Pelvis: LUMBAR SPINE/LOWER BACK: Yes lumbar spinal tenderness, Yes paraspinal muscle tenderness, No paraspinal muscle spasm, Yes straight leg raise positive right and Yes straight leg raise positive left PELVIS: Yes buttocks normal SACROILIAC JOINTS: Yes SI joints normal Extremity: COMMON NORMALS: normal to inspection, full ROM, capillary refill normal and no calf tenderness GENERAL: Yes normal exam except as noted Neuro: COMMON NORMALS: patient oriented x3, moves all extremities, no focal motor deficits and no sensory deficits noted SENSORIUM/ORIENTATION: Yes alert Skin: COMMON NORMALS: no rashes or lesions noted GENERAL SKIN EXAM: no rashes or lesions noted Course Vital Signs: Vital signs: Vital Signs Temperature 98.0 F 08/15/21 11:12 Pulse Rate 80 08/15/21 11:12 Respiratory Rate 18 08/15/21 11:12 Blood Pressure 147/88 08/15/21 11:12 Pulse Oximetry 99 08/15/21 11:12 MDM - Back Pain/Injury Medical Decision Making Patient feels better here after IM Norflex/Toradol/Dexamethasone. He is seated in the recliner and clinically appears more comfortable. We will give him refills of his Flexeril and Lyrica. Plan will be for patient to receive MBB/RFA by Dr. Leonard in a few weeks. Return to ED precautions given. Discharge Plan Discharge Patient Disposition: Home Clinical Impression: Acute exacerbation of chronic low back pain Condition: Stable Prescriptions: New cyclobenzaprine 10 mg tablet 10 mg PO TID Qty: 30 0RF Continued Lyrica 75 mg capsule 75 mg PO Q8H Qty: 90 0RF Discontinued methocarbamol 750 mg tablet 1,500 mg PO Q8H Qty: 30 0RF No Action triamcinolone acetonide 0.1 % cream 1 applic topical BID Qty: 30 0RF quetiapine [Seroquel] 50 mg tablet 50 mg PO .HS Qty: 30 0RF sertraline [Zoloft] 50 mg tablet 50 mg PO DAILY Qty: 30 0RF methadone 5 mg tablet 5 mg PO DAILY 0RF mupirocin 2 % ointment 1 applic topical BID Qty: 15 0RF diclofenac sodium 50 mg tablet,delayed release (DR/EC) 50 mg PO Q12H PRN (Reason: pain) Qty: 20 0RF Discharge Orders: Discharge ED (Routine); Ordered 08/15/21 Ordered By: Jyothi Guzman Coding Level of Care Code ED Bilingual Sales Assistant for Chg Fwd Exam Detailed Documented by User: Elver Napoles DO 08/15/21 13:23 HPI - Back Pain/Injury General: Chief Complaint: Back Pain/Injury Stated Complaint: severe back pain Time Seen by Provider: 08/15/21 11:19 PFSH ED PFSH: Medical History Psychiatric care Social History Smoking and tobacco status: current every day smoker cigarettes Packs smoked per day: 0.5 Years cigarettes smoked: 20 Quit status (tobacco): has tried quititng Number of times tried to quit tobacco: 6 Second hand smoke exposure: Yes Current gender identity: Female Course Vital Signs: Vital signs: Vital Signs Temperature 98.0 F 08/15/21 11:12 Pulse Rate 80 08/15/21 11:12 Respiratory Rate 18 08/15/21 11:12 Blood Pressure 147/88 08/15/21 11:12 Pulse Oximetry 99 08/15/21 11:12 MDM - Back Pain/Injury Medical Decision Making Patient feels better here after IM Norflex/Toradol/Dexamethasone. He is seated in the recliner and clinically appears more comfortable. We will give him refills of his Flexeril and Lyrica. Plan will be for patient to receive MBB/RFA by Dr. Leonard in a few weeks. Return to ED precautions given. Chart reviewed and patient discussed with midlevel. Agree with assessment and plan. Discharge Plan Discharge Patient Disposition: Home Clinical Impression: Acute exacerbation of chronic low back pain Condition: Stable Prescriptions: New cyclobenzaprine 10 mg tablet 10 mg PO TID Qty: 30 0RF Continued Lyrica 75 mg capsule 75 mg PO Q8H Qty: 90 0RF Discontinued methocarbamol 750 mg tablet 1,500 mg PO Q8H Qty: 30 0RF No Action triamcinolone acetonide 0.1 % cream 1 applic topical BID Qty: 30 0RF quetiapine [Seroquel] 50 mg tablet 50 mg PO .HS Qty: 30 0RF sertraline [Zoloft] 50 mg tablet 50 mg PO DAILY Qty: 30 0RF methadone 5 mg tablet 5 mg PO DAILY 0RF mupirocin 2 % ointment 1 applic topical BID Qty: 15 0RF diclofenac sodium 50 mg tablet,delayed release (DR/EC) 50 mg PO Q12H PRN (Reason: pain) Qty: 20 0RF Discharge Orders: Discharge ED (Routine); Ordered 08/15/21 Ordered By: Jyothi Guzman Coding Level of Care Code ED Bilingual Sales Assistant for Chg Fwd Exam Detailed
[2021-08-15] MEDS: dexamethasone 10 mg/mL INJ 8 MG IM (12:01)
[2021-08-15] MEDS: ketorolac 60 mg/2 mL INJ IM (12:02)
[2021-08-15] MEDS: orphenadrine 30 mg/mL Inj 2 mL 60 MG IM (12:02)
== END 2021-08-15 12:38 | disposition home or self-care (01) ==
PROVIDERS: Emergency Provider Physician Assistant
DX: M54.50 Low back pain, unspecified (principal); G89.29 Other chronic pain; F17.210 Nicotine dependence, cigarettes, uncomplicated
CPT/HCPCS: 96372; 99283; J1100; J1885; J2360

== ENCOUNTER → 2021-08-28 12:55 | Outpatient (BNVA) | payer MEDICARE, MEDICAID, SELFPAY | PROVIDERS: Visit Provider Anesthesiology Pain Medicine | DX: M48.062 Spinal stenosis, lumbar region with neurogenic claudication (principal); F17.290 Nicotine dependence, other tobacco product, uncomplicated; M47.816 Spondylosis without myelopathy or radiculopathy, lumbar region | CPT/HCPCS: 64493; 64494; 64495; J3490 ==

== ENCOUNTER 2021-08-29 14:54 | Emergency (ER) | payer MEDICARE, MEDICAID, SELFPAY ==
[2021-08-29 15:08] VITALS: BP 145/83; PULSE 78; RESP 18; O2SAT 97; BMI 21.8
--- NOTE | 2021-08-29 15:15 | ED_ITS ---
HPI - Nausea/Vomiting/Diarrhea General: Chief complaint: Nausea/Vomiting/Diarrhea Stated complaint: pt thinks he has stomach ulcers Time Seen by Provider: 08/29/21 15:15 History of Present Illness: Mr. Cosby is a 36-year-old gentleman with complex past medical history including remote history of polysubstance abuse currently on methadone as well as history of chronic pain who follows with pain clinic who presents to the emergency department due to recurrent nausea and vomiting. He notes symptoms have been ongoing for 4 months that was perhaps even worse the recently. He endorses numerous episodes perhaps 40 to 50/day of vomiting after basically any oral intake. It is mostly undigested food contents. He does not note significant abdominal discomfort with this. Symptom intensity is moderate to severe. Course has been worsening. He does endorse history of self diagnosed ulcers which had hematemesis and blood in stool a number of years ago however reports that this feels different. He does correlate this roughly starting the same time as when he started methadone and he has had constipation associated with methadone but denies similar episodes with other opioids (no longer uses). No other specific changes in health, exacerbating, or alleviating factors identified. Onset (ago): month(s) Description of vomiting: food contents and watery Associated nausea: Yes Associated abdominal pain: No Severity: severe Associated symtoms: Reports nausea Review of Systems General: Reports: 10 or more systems reviewed and unremarkable except in HPI and below GI: Reports: nausea PFS ED PFSH: Medical History Psychiatric care Social History Smoking and tobacco status: current every day smoker cigarettes Packs smoked per day: 0.5 Years cigarettes smoked: 20 Quit status (tobacco): has tried quititng Number of times tried to quit tobacco: 6 Second hand smoke exposure: Yes Current gender identity: Female Physical Exam Const: COMMON NORMALS: alert GENERAL APPEARANCE: cooperative, well developed and ill appearing HENMT: COMMON NORMALS: normocephalic and atraumatic HEAD & SCALP: normocephalic and atraumatic Eye: COMMON NORMALS: conjunctivae normal CONJUNCTIVA: Yes conjunctivae normal SCLERA: sclerae normal Neck/C-Spine: COMMON NORMALS: supple GENERAL: Yes trachea midline Resp: COMMON NORMALS: clear to auscultation bilaterally EFFORT & INSPECTION: Yes able to speak in complete sentences AUSCULTATION: clear to auscultation bilaterally Cardio: COMMON NORMALS: regular rate and regular rhythm RATE: regular rate RHYTHM: regular rhythm GI: COMMON NORMALS: Soft to palpation PALPATION: Yes Soft to palpation and No Tenderness to palpation present (GI) PERCUSSION: normal to percussion Extremity: GENERAL: Yes normal exam except as noted and No edema Neuro: COMMON NORMALS: moves all extremities SENSORIUM/ORIENTATION: Yes alert and No Orientation impaired Psych: COMMON NORMALS: mental status grossly normal and Normal thought process present THOUGHT PROCESS: Normal thought process present Course ED course: - Patient was seen and evaluated by me at bedside - Patient placed on cardiac monitors, IV access obtained - Initial evaluation notable for exam as above, somewhat ill-appearing - Labs personally interpreted by me -Fluids, antiemetic ordered - Labs notable for no significant hematologic or metabolic abnormality requiring acute intervention other than fluids - Given increasing frequency of symptoms and multiple episodes per day as well as overall clinical appearance imaging is warranted. Imaging notable for fluid in stomach and small bowel with mucosal enhancement - Upon serial reexamination after treatment the patient was improved after second round of antiemetics, he tolerated p.o. intake. - Based on patient history, evaluation, and testing as interpreted the most likely cause of the patient's condition is recurrent nausea and vomiting likely secondary to gastroenteritis as noted on imaging. Additional consideration based medication induced symptoms. - The results of ED evaluation were discussed with the patient including prescriptions and/or symptomatic cares (if applicable) including appropriate and responsible use, followup plan, and return precautions. The patient verbalized understanding and felt safe for discharge. - Patient discharged in satisfactory condition. Note: Click bubbles or prepopulated brown in note writing are used for assistance with data collection and billing and are inherently more limited than narrative and other text portions of this note. Please use narrative for additional clinical history and defer to narrative/free test for any case of contradictory information. If information appears in only free text or click bubble it should be considered present or absent as reported. Please contact note mortgage underwriter for clarifications of clinical information or contradictory information. MDM is a brief summary, contradictory or erroneous seeming information should be clarified and full note should be reviewed. Vital Signs: Vital signs: Vital Signs Temperature 98.2 F 08/29/21 18:21 Pulse Rate 71 08/29/21 18:21 Respiratory Rate 22 H 08/29/21 18:21 Blood Pressure 115/61 08/29/21 18:21 Pulse Oximetry 99 08/29/21 18:21 MDM - Nausea/Vomiting/Diarrhea Medical Decision Making 36-year-old gentleman presenting with recurrent right worsening nausea and vomiting. CT with small bowel and stomach enteritis. Improved with treatment and satisfactory for outpatient management. Medical Records I reviewed the patient's medical records. Lab Data I reviewed the patient's lab results. : 08/29/21 15:25 08/29/21 16:00 Radiology Impressions Abdomen/Pelvis CT 08/29/21 15:31 IMPRESSION: Prominent fluid in the stomach and small bowel with mucosal enhancement may reflect a gastroenteritis in the appropriate clinical setting. Laboratory Results WBC 5.1 10^3/uL (4.0-10.0) 08/29/21 15:25 RBC 5.14 10^6/uL (4.1-5.3) 08/29/21 15:25 Hgb 15.1 g/dL (11.7-16.6) 08/29/21 15:25 Hct 45.5 % (42.0-52.0) 08/29/21 15:25 MCV 88.5 fl (80-94) 08/29/21 15:25 MCH 29.4 pg (28.0-34.0) 08/29/21 15:25 MCHC 33.2 g/dL (30.0-36.0) 08/29/21 15:25 RDW 13.2 % (12.1-15.1) 08/29/21 15:25 Plt Count 227 10^3/cmm (130-400) 08/29/21 15:25 MPV 10.1 fL (7.4-10.4) 08/29/21 15:25 Neut % (Auto) 38.2 % 08/29/21 15:25 Lymph % (Auto) 51.2 % 08/29/21 15:25 Haines % (Auto) 8.0 % 08/29/21 15:25 Eos % (Auto) 1.8 % 08/29/21 15:25 Baso % (Auto) 0.6 % 08/29/21 15:25 Neut # (Auto) 1.96 10^3/uL (1.8-7.7) 08/29/21 15:25 Lymph # (Auto) 2.6 10^3/uL (0.8-4.8) 08/29/21 15:25 Haines # (Auto) 0.4 10^3/uL (0.2-0.9) 08/29/21 15:25 Eos # (Auto) 0.1 10^3/uL (0.0-0.8) 08/29/21 15:25 Baso # (Auto) 0.0 10^3/uL (0.0-0.1) 08/29/21 15:25 Nucleated RBC % (auto) 0 % 08/29/21 15:25 Nucleated RBCs # 0.0 /100WBC 08/29/21 15:25 Sodium 139 mmol/L (136-145) 08/29/21 16:00 Potassium 3.9 mmol/L (3.5-5.1) 08/29/21 16:00 Chloride 101 mmol/L (98-107) 08/29/21 16:00 Carbon Dioxide 30 mmol/L (22-29) H 08/29/21 16:00 Anion Gap 11.9 (5-19) 08/29/21 16:00 BUN 11 mg/dL (6-20) 08/29/21 16:00 Creatinine 0.7 mg/dL (0.7-1.2) 08/29/21 16:00 GFR Calculation 126.2 mL/min (90-130) 08/29/21 16:00 Glucose 80 mg/dL (65-115) 08/29/21 16:00 Calculated Osmolality 286 mOsm/kg (285-295) 08/29/21 16:00 Calcium 8.2 mg/dL (8.5-10.5) L 08/29/21 16:00 Total Bilirubin 0.3 mg/dL (0.15-1.2) 08/29/21 16:00 AST 16 U/L (0-40) 08/29/21 16:00 ALT 9 U/L (0-41) 08/29/21 16:00 Alkaline Phosphatase 60 IU/L (40-130) 08/29/21 16:00 Total Protein 5.8 g/dL (6.6-8.7) L 08/29/21 16:00 Albumin 4.0 g/dL (3.5-5.2) 08/29/21 16:00 Globulin 1.8 g/dL (1.3-4.6) 08/29/21 16:00 Lipase 20 U/L (13-60) 08/29/21 16:00 Discharge Plan Discharge Patient Disposition: Home Clinical Impression: Gastroenteritis Condition: Stable Prescriptions: New ondansetron 4 mg tablet,disintegrating 4 mg PO Q8H PRN (Reason: nausea and vomiting) Qty: 15 0RF azithromycin 500 mg tablet See Rx Instructions .ROUTE .COMPLEX Qty: 3 0RF Rx Instructions: For 500 mg dose pack: take 500 mg once daily for 3 days Miralax 17 gram/dose powder 17 g PO DAILY Qty: 238 0RF Rx Instructions: 1 to 3 time per day and adjust for applesauce consistency stools multiple times per day Protonix 40 mg tablet,delayed release (DR/EC) 40 mg PO BID 14 Days Qty: 28 0RF No Action cyclobenzaprine 10 mg tablet 10 mg PO TID Qty: 30 0RF pregabalin [Lyrica] 75 mg capsule 75 mg PO Q8H Qty: 90 0RF methadone 40 mg Tablet,Soluble 60 mg PO DAILY 0RF albuterol sulfate 90 mcg/actuation HFA aerosol inhaler 2 puff inhalation Q6H PRN (Reason: Shortness Of Breath) 0RF Zoloft 50 mg tablet 50 mg PO QAM 0RF Seroquel 50 mg tablet 50 mg PO BEDTIME 0RF Discharge Orders: Discharge ED (Routine); Ordered 08/29/21 Ordered By: Nghia Argueta Discharge Diet: Advance as tolerated and Clear Liquid Discharge Activity: Increase activity as tolerated Patient Instructions: Gastroenteritis (ED), Acute Nausea and Vomiting (ED) Activity Restrictions/Additional Instructions: Thank you for visiting the emergency department. You were seen and evaluated for recurrent nausea and vomiting. The exact cause of your symptoms is unclear though there was evidence of fluid in the stomach and small bowel with mucosal enhancement suggesting gastroenteritis. Typically this is viral however given longstanding duration of symptoms he will be treated with antibiotics for possible bacterial component. Additionally I will prescribe anti-acid medi cation, stool softener given your history of constipation and methadone use, and antinausea medication. Please follow-up with your primary care provider. Please return to the emergency department for worsening symptoms or anything else that you are concerned about and feel needs emergency department evaluation. Coding Level of Care Code ED [place] [employer] for Julito Brumfield
[2021-08-29 15:18] VITALS: BP 145/83; PULSE 83; RESP 16; TEMP 36.8; O2SAT 97
--- NOTE | 2021-08-29 15:31 | CTR_ITS ---
PROCEDURE INFORMATION: Exam: CT Abdomen And Pelvis With Contrast Exam date and time: 08/29/2021 4:04 PM Age: 36 years old Clinical indication: Nausea and vomiting; Additional info: Recurrent nausea and vomitting TECHNIQUE: Imaging protocol: Computed tomography of the abdomen and pelvis with contrast. Radiation optimization: All CT scans at this facility use at least one of these dose optimization techniques: automated exposure control; mA and/or kV adjustment per patient size (includes targeted exams where dose is matched to clinical indication); or iterative reconstruction. Contrast material: OMNI 300; Contrast volume: 95 ml; Contrast route: INTRAVENOUS (IV); COMPARISON: CR XR hip LT 2-3V wo/w pel* [id number] 05/04/2021 3:41 PM RADIATION DOSE METRICS: Total DLP (mGy-cm): 864.18 FINDINGS: Liver: Normal. No mass. Gallbladder and bile ducts: Normal. No calcified stones. No ductal dilation. Pancreas: Normal. No ductal dilation. Spleen: Normal. No splenomegaly. Adrenal glands: Normal. No mass. Kidneys and ureters: Normal. No hydronephrosis. Stomach and bowel: Prominent fluid in the small bowel PROCEDURE INFORMATION:. Prominent fluid in the stomach and small bowel with mucosal enhancement may reflect a gastroenteritis in the appropriate clinical setting. Appendix: No evidence of appendicitis. Intraperitoneal space: Unremarkable. No free air. No significant fluid collection. Arteries: Unremarkable. No abdominal aortic aneurysm. Lymph nodes: Unremarkable. No enlarged lymph nodes. Urinary bladder: Unremarkable as visualized. Reproductive: Unremarkable as visualized. Bones/joints: Unremarkable. No acute fracture. Soft tissues: Unremarkable. CT/CT abdomen pelvis w con* [id number] IMPRESSION: Prominent fluid in the stomach and small bowel with mucosal enhancement may reflect a gastroenteritis in the appropriate clinical setting.
[2021-08-29 15:43] LABS: Basophils % 0.6 %; Eosinophils # 0.1 10^3/uL (0.0-0.8); Eosinophils % 1.8 %; Hematocrit 45.5 % (42.0-52.0); Hemoglobin 15.1 g/dL (11.7-16.6); Lymphocytes # 2.6 10^3/uL (0.8-4.8); Lymphocytes % 51.2 %; Mean Corpuscular HGB Conc 33.2 g/dL (30.0-36.0); Mean Corpuscular Hemoglobin 29.4 pg (28.0-34.0); Mean Corpuscular Volume 88.5 fl (80-94); Mean Platelet Volume 10.1 fL (7.4-10.4); Monocytes # 0.4 10^3/uL (0.2-0.9); Neutrophils # 1.96 10^3/uL (1.8-7.7); Neutrophils % 38.2 %; Nucleated Red Blood Cells % 0 %; Platelet Count 227 10^3/cmm (130-400); Red Blood Count 5.14 10^6/uL (4.1-5.3); Red Cell Distribution Width 13.2 % (12.1-15.1); White Blood Count 5.1 10^3/uL (4.0-10.0)
[2021-08-29] MEDS: lactated ringers 1,000 ML 999 ML IV (15:45)
[2021-08-29] MEDS: ondansetron 2 mg/ML SDV 2 mL 4 MG IVP (15:46)
[2021-08-29] MEDS: iohexol 350 mg/mL 100 mL Btl IV (16:08)
[2021-08-29 16:37] LABS: Alanine Aminotransferase 9 U/L (0-41); Alkaline Phosphatase 60 IU/L (40-130); Anion Gap 11.9 (5-19); Aspartate Amino Transferase 16 U/L (0-40); Blood Urea Nitrogen 11 mg/dL (6-20); Calcium 8.2 mg/dL (8.5-10.5); Carbon Dioxide 30 mmol/L (22-29); Chloride 101 mmol/L (98-107); Globulin 1.8 g/dL (1.3-4.6); Glomerular Filtration Rate 126.2 mL/min (90-130); Glucose 80 mg/dL (65-115); Lipase 20 U/L (13-60); Osmolality Calculated 286 mOsm/kg (285-295); Potassium 3.9 mmol/L (3.5-5.1); Sodium 139 mmol/L (136-145); Total Bilirubin 0.3 mg/dL (0.15-1.2); Total Protein 5.8 g/dL (6.6-8.7)
[2021-08-29] MEDS: lidocaine 2% viscous 15 ML, aluminum-mag hydrox-simethicon 30 ML, sucralfate oral liq 1 GM PO (17:23)
[2021-08-29] MEDS: pantoprazole 40 mg SDV IVP (17:24)
[2021-08-29] MEDS: metoclopramide 5 mg/mL SDV 2 mL 10 MG IVP (17:24)
[2021-08-29 18:21] VITALS: BP 115/61; PULSE 71; RESP 22; TEMP 36.8; O2SAT 99
--- NOTE | 2021-08-31 13:01 | DCPLANNER ---
manager licensing had message to speak with patient about getting established with a primary care physician. manager licensing was unable to speak with patient or leave a voicemail for patient.
== END 2021-08-29 18:20 | disposition home or self-care (01) ==
PROVIDERS: Emergency Provider Emergency Medicine
DX: K52.9 Noninfective gastroenteritis and colitis, unspecified (principal); G89.29 Other chronic pain; Z79.891 Long term (current) use of opiate analgesic; F17.210 Nicotine dependence, cigarettes, uncomplicated
CPT/HCPCS: 74177; 80053; 83690; 85025; 96361; 96374; 96375; 99283; C9113; J2405; J2765; Q9967

== ENCOUNTER 2021-09-13 23:02 | Emergency (ER) | payer MEDICARE, MEDICAID, SELFPAY ==
[2021-09-13 23:34] VITALS: BP 144/72; PULSE 103; RESP 18; TEMP 36.6; O2SAT 97; BMI 21.9
--- NOTE | 2021-09-13 23:49 | ED_ITS ---
HPI - General Adult General: Chief complaint: General Medical Stated complaint: hip and knees pain Time Seen by Provider: 09/13/21 23:03 History of Present Illness: Patient is a [id number] male comes to the ED with back pain. Patient has chronic back pain and sees Dr. Leonard pain management. He received an MBB/RFA back on August [address] Leonard. Patient is having acute on chronic lower back pain. Denies any cauda equina symptoms or any pain radiating down his legs. Patient is currently out of his prescription for Lyrica. Associated symptoms: Deny chest pain, dyspnea, headache(s), nausea, rash, palpitations or vomiting Review of Systems Const: Denies: fever(s), chills or fatigue Eyes: Denies: change in vision or eye discomfort ENMT: Denies: throat pain, odynophagia, nasal discharge or nasal congestion Card: Denies: chest pain, palpitations, edema, swelling of feet/ankles, dyspnea on exertion or orthopnea Resp: Denies: dyspnea, productive cough or non-productive cough GI: Denies: abdominal pain, nausea, vomiting, diarrhea, constipation or hematochezia : Denies: flank pain, difficulty urinating, dysuria or hematuria Musc: Reports: back pain; Denies: neck pain or extremity swelling Skin/Breast: Denies: rash or new lesions Neuro: Denies: headache(s), numbness in extremities or weakness in extremities PFS ED PFSH: Medical History Chronic pain Lumbar stenosis with neurogenic claudication No pertinent family history Psychiatric care Social History Smoking and tobacco status: current every day smoker cigarettes Packs smoked per day: 0.5 Years cigarettes smoked: 20 Quit status (tobacco): has tried quititng Number of times tried to quit tobacco: 6 Second hand smoke exposure: Yes Current gender identity: Female Physical Exam Const: COMMON NORMALS: no acute distress, patient oriented x3 and alert GENERAL APPEARANCE: cooperative and comfortable HENMT: COMMON NORMALS: normocephalic HEAD & SCALP: normocephalic MOUTH: Normal oral and palatal mucosa present THROAT: posterior oropharynx normal and uvula midline Neck/C-Spine: COMMON NORMALS: supple GENERAL: Yes normal visual inspection Resp: COMMON NORMALS: normal respiratory effort, No retractions, No use of accessory muscles and clear to auscultation bilaterally AUSCULTATION: clear to auscultation bilaterally Cardio: COMMON NORMALS: regular rate, regular rhythm, S1 normal heart sound present, S2 normal heart sound present, No gallops present (Cardio), No clicks present (Cardio), No murmurs present (Cardio) and Peripheral pulses 2+ throughout RATE: regular rate RHYTHM: regular rhythm HEART SOUNDS: S1 normal heart sound present and S2 normal heart sound present PERIPHERAL PULSES: Peripheral pulses 2+ throughout GI: COMMON NORMALS: Normal to inspection, nondistended, normoactive bowel sounds present, Soft to palpation, non-tender and no masses PALPATION: Yes Soft to palpation : COMMON NORMALS: Yes no CVA tenderness BLADDER/KIDNEY EXAM: Yes no CVA tenderness Back/Pelvis: COMMON NORMALS: no CVA tenderness LUMBAR SPINE/LOWER BACK: Yes paraspinal muscle tenderness Lumbar paraspinal muscle tenderness: bilateral Extremity: COMMON NORMALS: normal to inspection Neuro: COMMON NORMALS: patient oriented x3 and moves all extremities SENSORIUM/ORIENTATION: Yes alert Skin: GENERAL SKIN EXAM: dry skin Course Vital Signs: Vital signs: Vital Signs Temperature 97.9 F 09/13/21 23:34 Pulse Rate 103 H 09/13/21 23:34 Respiratory Rate 18 09/13/21 23:34 Blood Pressure 144/72 09/13/21 23:34 Pulse Oximetry 97 09/13/21 23:34 [facility] - General Adult Medical Decision Making Patient is a 36-year-old male comes to the ED with acute on chronic lower back pain. Patient sees Dr. Leonard for pain management. He is out of his Lyrica. Patient was given IM Norflex, Toradol and dexamethasone. His symptoms improved. He has an appointment with Dr. Leonard soon. I refilled his Lyrica and Flexe ril medication. Return to ED precautions given. Discharge Plan Discharge Patient Disposition: Home Clinical Impression: Chronic back pain Qualifiers: Back pain location: low back pain Back pain laterality: bilateral Sciatica presence: without sciatica Qualified Code(s): M54.50 - Low back pain, unspecified Condition: Stable Prescriptions: New cyclobenzaprine 10 mg tablet 10 mg PO TID PRN (Reason: muscle spasm) Qty: 30 0RF No Action cyclobenzaprine 10 mg tablet 10 mg PO TID Qty: 30 0RF pregabalin [Lyrica] 75 mg capsule 75 mg PO Q8H Qty: 90 0RF methadone 40 mg Tablet,Soluble 60 mg PO DAILY 0RF albuterol sulfate 90 mcg/actuation HFA aerosol inhaler 2 puff inhalation Q6H PRN (Reason: Shortness Of Breath) 0RF Zoloft 50 mg tablet 50 mg PO QAM 0RF Seroquel 50 mg tablet 50 mg PO BEDTIME 0RF ondansetron 4 mg tablet,disintegrating 4 mg PO Q8H PRN (Reason: nausea and vomiting) Qty: 15 0RF azithromycin 500 mg tablet See Rx Instructions .ROUTE .COMPLEX Qty: 3 0RF Rx Instructions: For 500 mg dose pack: take 500 mg once daily for 3 days Miralax 17 gram/dose powder 17 g PO DAILY Qty: 238 0RF Rx Instructions: 1 to 3 time per day and adjust for applesauce consistency stools multiple times per day Discharge Orders: Discharge ED (Routine); Ordered 09/14/21 Ordered By: Tim Ann Discharge Diet: Regular Discharge Activity: Increase activity as tolerated Patient Instructions: Chronic Back Pain (DC) Activity Restrictions/Additional Instructions: Follow-up with medical provider as directed. Contact Dr. Leonard to set up follow-up appointment and for further pain medication management. take medications as prescribed. Return to the ER or your medical provider if condition worsens. Please read and understand discharge instructions. Thank you for choosing [facility] for your healthcare needs today. Please realize this is an emergency room and that we are providing you with a medical screening exam and this may not be complete and all inclusive of all the testing and or work up that you may need to determine your ailment or severity of your illness. It is very important that you follow up as instructed or that you return to the Emergency Department should you have concerns or if your condition changes or worsens in any way. Coding Level of Care Code ED Metal Window Screen Assembler for Julito Brumfield Exam Comprehensive
[2021-09-13] MEDS: orphenadrine 30 mg/mL Inj 2 mL 60 MG IM (23:58)
[2021-09-13] MEDS: ketorolac 60 mg/2 mL INJ IM (23:59)
[2021-09-14] MEDS: dexamethasone 10 mg/mL INJ IM
[2021-09-14 00:31] VITALS: BP 120/82; PULSE 80; RESP 20; O2SAT 97
== END 2021-09-14 00:36 | disposition home or self-care (01) ==
PROVIDERS: Emergency Provider Physician Assistant
DX: M54.50 Low back pain, unspecified (principal); F17.210 Nicotine dependence, cigarettes, uncomplicated
CPT/HCPCS: 96372; 99284; J1100; J1885; J2360

== ENCOUNTER → 2021-09-19 15:45 | Outpatient (BNVA) | payer MEDICARE, MEDICAID, SELFPAY | PROVIDERS: Visit Provider Orthopaedic Surgery | DX: M54.50 Low back pain, unspecified (principal); G89.29 Other chronic pain | CPT/HCPCS: 99213; 99214 ==

== ENCOUNTER 2021-09-22 12:02 | Emergency (ER) | payer MEDICARE, MEDICAID, SELFPAY ==
[2021-09-22 12:20] VITALS: BP 130/91; PULSE 100; RESP 16; TEMP 36.8; O2SAT 98; BMI 22.1
--- NOTE | 2021-09-22 12:30 | W.ED.WOUNDLC ---
HPI - Wound/Laceration General: Chief Complaint: Wound/Laceration Stated Complaint: Levering in Right hand Time Seen by Provider: 09/22/21 12:27 Source: patient Mode of arrival: ambulatory Limitations: no limitations History of Present Illness: 36-year-old male states he has had a fishhook in his right hand since last night states he is try to remove it was not able to periods in the palm of his right hand. He states that he is not up-to-date on his tetanus he does have pain is sharp in nature it is a 5 out of 10 denies any worsening or improving factors denies any other injuries. Associated symptoms: Denies chills, fever(s), nausea or vomiting Review of Systems Const: Denies: fever(s), chills, body aches or change in appetite Eyes: Denies: blurry vision or eye discomfort ENMT: Denies: throat pain or dental pain Card: Denies: chest pain Resp: Denies: dyspnea GI: Denies: abdominal pain, nausea, vomiting or diarrhea : Denies: dysuria Musc: Denies: neck pain or back pain Skin/Breast: Denies: rash Neuro: Denies: headache(s) Psych: Denies: depression Carlos/Lymph: Denies: easy bruising All/Imm: Denies: urticaria PFSH ED PFSH: Medical History Chronic pain Lumbar stenosis with neurogenic claudication No pertinent family history Psychiatric care Social History Smoking and tobacco status: current every day smoker cigarettes Packs smoked per day: 0.5 Years cigarettes smoked: 20 Quit status (tobacco): has tried quititng Number of times tried to quit tobacco: 6 Second hand smoke exposure: Yes Current gender identity: Female Physical Exam Const: COMMON NORMALS: no acute distress, patient oriented x3 and healthy appearing HENMT: COMMON NORMALS: normocephalic and atraumatic HEAD & SCALP: normocephalic and atraumatic Eye: COMMON NORMALS: Equal, round and reactive pupils present and EOMs intact bilaterally PUPIL: Yes Equal, round and reactive pupils present Neck/C-Spine: COMMON NORMALS: full ROM and supple Chest: COMMONS NORMALS: normal inspection of the chest and normal palpation of entire chest wall Resp: COMMON NORMALS: normal respiratory effort, No retractions, No use of accessory muscles and clear to auscultation bilaterally AUSCULTATION: clear to auscultation bilaterally Cardio: COMMON NORMALS: regular rate, regular rhythm and No murmurs present (Cardio) RATE: regular rate RHYTHM: regular rhythm GI: COMMON NORMALS: Normal to inspection, nondistended, normoactive bowel sounds present, Soft to palpation, non-tender and no masses PALPATION: Yes Soft to palpation Extremity: NARRATIVE EXTREMITY EXAM: fishhook in right hand Neuro: COMMON NORMALS: patient oriented x3, moves all extremities and no focal motor deficits Psych: COMMON NORMALS: mental status grossly normal, Normal thought process present and cooperative THOUGHT PROCESS: Normal thought process present Skin: COMMON NORMALS: no rashes or lesions noted and no wounds GENERAL SKIN EXAM: no rashes or lesions noted Procedures Foreign Body Removal Time Out Performed: yes Site: right and hand Description of foreign body: fish hook Sedation/Analgesia: other (lidocaine) Technique: manual removal Confirmed by:: direct visualization Complications: none Course Vital Signs: Vital signs: Vital Signs Temperature 98.3 F 09/22/21 12:20 Pulse Rate 100 09/22/21 12:20 Respiratory Rate 16 09/22/21 12:20 Blood Pressure 130/91 09/22/21 12:20 Pulse Oximetry 98 09/22/21 12:20 MDM - Wound/Laceration Medical Decision Making Patient presents with a fishhook injury to his right hand was able to remove the fishhook with no problems placed him on antibiotics since injury is last night did update his tetanus he stable for discharge return if worsening. Discharge Plan Discharge Patient Disposition: Home Clinical Impression: Foreign body hand Qualifiers: Encounter type: initial encounter Laterality: right Qualified Code(s): S60.551A - Superficial foreign body of right hand, initial encounter Condition: Stable Prescriptions: New Augmentin 500-125 mg tablet 1 tab PO BID Qty: 14 0RF No Action pregabalin [Lyrica] 100 mg capsule 100 mg PO TID 30 Days Qty: 90 0RF cyclobenzaprine 10 mg tablet 10 mg PO TID Qty: 30 0RF cyclobenzaprine 10 mg tablet 10 mg PO TID PRN (Reason: muscle spasm) Qty: 30 0RF methadone 40 mg Tablet,Soluble 60 mg PO DAILY 0RF albuterol sulfate 90 mcg/actuation HFA aerosol inhaler 2 puff inhalation Q6H PRN (Reason: Shortness Of Breath) 0RF Zoloft 50 mg tablet 50 mg PO QAM 0RF Seroquel 50 mg tablet 50 mg PO BEDTIME 0RF ondansetron 4 mg tablet,disintegrating 4 mg PO Q8H PRN (Reason: nausea and vomiting) Qty: 15 0RF azithromycin 500 mg tablet See Rx Instructions .ROUTE .COMPLEX Qty: 3 0RF Rx Instructions: For 500 mg dose pack: take 500 mg once daily for 3 days Miralax 17 gram/dose powder 17 g PO DAILY Qty: 238 0RF Rx Instructions: 1 to 3 time per day and adjust for applesauce consistency stools multiple times per day Discharge Orders: Discharge ED (Routine); Ordered 09/22/21 Ordered By: Brent Lee Discharge Diet: Advance as tolerated Discharge Activity: Resume usual activity Patient Instructions: Levering Injuries Coding Level of Care Code ED Chief Operating Engineer for Julito Fwd Exam Comprehensive
== END 2021-09-22 12:56 | disposition home or self-care (01) ==
PROVIDERS: Emergency Provider Emergency Medicine
DX: S60.551A Superficial foreign body of right hand, initial encounter (principal); W45.8XXA Other foreign body or object entering through skin, initial encounter
CPT/HCPCS: 10120; 99282

== ENCOUNTER → 2021-10-18 11:02 | Outpatient (BNVA) | payer MEDICARE, MEDICAID, SELFPAY | PROVIDERS: Visit Provider Psychiatry & Neurology Psychiatry | DX: F33.2 Major depressive disorder, recurrent severe without psychotic features (principal); F43.12 Post-traumatic stress disorder, chronic; F41.1 Generalized anxiety disorder; F17.200 Nicotine dependence, unspecified, uncomplicated; F15.21 Other stimulant dependence, in remission; F12.20 Cannabis dependence, uncomplicated; F11.21 Opioid dependence, in remission | CPT/HCPCS: 99214 ==

== ENCOUNTER 2021-10-26 03:02 | Emergency (ER) | payer MEDICARE, MEDICAID, SELFPAY ==
[2021-10-26 03:05] VITALS: BP 154/101; PULSE 110; RESP 18; TEMP 36.9; O2SAT 100; BMI 21.5
--- NOTE | 2021-10-26 03:10 | ED_ITS ---
HPI - Back Pain/Injury General: Chief Complaint: Back Pain/Injury Stated Complaint: BACK PAIN Time Seen by Provider: 10/26/21 03:08 Source: patient and EMS Mode of arrival: EMS Limitations: no limitations History of Present Illness: 36-year-old male is here by EMS. He states that he is trying to hitch back to [place] from [place] has been walking a long ways from [facility] states that he drank river water started having nausea and abdominal cramps and is having leg pain from walking so much. He states his cramps are 2 out of 10 he denies any fever denies any vomiting denies any diarrhea. Denies any injuries. Associated symptoms: Reports abdominal pain; Deny chills, dysuria or fever(s) Review of Systems Const: Denies: fever(s), chills, body aches or change in appetite Eyes: Denies: blurry vision or eye discomfort ENMT: Denies: throat pain or dental pain Card: Denies: chest pain Resp: Denies: dyspnea GI: Reports: abdominal pain : Denies: dysuria Musc: Reports: back pain and extremity pain Skin/Breast: Denies: rash Neuro: Denies: headache(s) Psych: Denies: depression Carlos/Lymph: Denies: easy bruising All/Imm: Denies: urticaria PFSH ED PFSH: Medical History Chronic pain Lumbar stenosis with neurogenic claudication No pertinent family history Psychiatric care Social History Smoking and tobacco status: current every day smoker cigarettes Packs smoked per day: 0.5 Years cigarettes smoked: 20 Quit status (tobacco): has tried quititng Number of times tried to quit tobacco: 6 Second hand smoke exposure: Yes Current gender identity: Female Physical Exam Const: COMMON NORMALS: no acute distress, patient oriented x3 and healthy appearing HENMT: COMMON NORMALS: normocephalic and atraumatic HEAD & SCALP: normocephalic and atraumatic Eye: COMMON NORMALS: Equal, round and reactive pupils present and EOMs intact bilaterally PUPIL: Yes Equal, round and reactive pupils present Neck/C-Spine: COMMON NORMALS: full ROM and supple Chest: COMMONS NORMALS: normal inspection of the chest and normal palpation of entire chest wall Resp: COMMON NORMALS: normal respiratory effort, No retractions, No use of accessory muscles and clear to auscultation bilaterally AUSCULTATION: clear to auscultation bilaterally Cardio: COMMON NORMALS: regular rate, regular rhythm and No murmurs present (Cardio) RATE: regular rate RHYTHM: regular rhythm GI: COMMON NORMALS: Normal to inspection, nondistended, normoactive bowel sounds present, Soft to palpation, non-tender and no masses PALPATION: Yes Soft to palpation Extremity: COMMON NORMALS: normal to inspection and full ROM Neuro: COMMON NORMALS: patient oriented x3, moves all extremities and no focal motor deficits Psych: COMMON NORMALS: mental status grossly normal, Normal thought process present and cooperative THOUGHT PROCESS: Normal thought process present Skin: COMMON NORMALS: no rashes or lesions noted and no wounds GENERAL SKIN EXAM: no rashes or lesions noted Course Vital Signs: Vital signs: Vital Signs Temperature 98.5 F 10/26/21 03:05 Pulse Rate 110 H 10/26/21 03:05 Respiratory Rate 18 10/26/21 03:05 Blood Pressure 154/101 10/26/21 03:05 Pulse Oximetry 100 10/26/21 03:05 MDM - Back Pain/Injury Medical Decision Making Patient presents here with nausea along with back pain likely from walking. He is feels improved after IV fluids and Zofran he is stable for discharge return if worsening. Labs : 10/26/21 03:12 10/26/21 03:12 Laboratory Results WBC 14.1 10^3/uL (4.0-10.0) H 10/26/21 03:12 RBC 5.42 10^6/uL (4.1-5.3) H 10/26/21 03:12 Hgb 16.3 g/dL (11.7-16.6) 10/26/21 03:12 Hct 46.6 % (42.0-52.0) 10/26/21 03:12 MCV 86.0 fl (80-94) 10/26/21 03:12 MCH 30.1 pg (28.0-34.0) 10/26/21 03:12 MCHC 35.0 g/dL (30.0-36.0) 10/26/21 03:12 RDW 13.1 % (12.1-15.1) 10/26/21 03:12 Plt Count 260 10^3/cmm (130-400) 10/26/21 03:12 MPV 9.4 fL (7.4-10.4) 10/26/21 03:12 Neut % (Auto) 73.4 % 10/26/21 03:12 Lymph % (Auto) 17.8 % 10/26/21 03:12 [place] % (Auto) 8.0 % 10/26/21 03:12 Eos % (Auto) 0.1 % 10/26/21 03:12 Baso % (Auto) 0.3 % 10/26/21 03:12 Neut # (Auto) 10.37 10^3/uL (1.8-7.7) H 10/26/21 03:12 Lymph # (Auto) 2.5 10^3/uL (0.8-4.8) 10/26/21 03:12 [place] # (Auto) 1.1 10^3/uL (0.2-0.9) H 10/26/21 03:12 Eos # (Auto) 0.0 10^3/uL (0.0-0.8) 10/26/21 03:12 Baso # (Auto) 0.0 10^3/uL (0.0-0.1) 10/26/21 03:12 Nucleated RBC % (auto) 0 % 10/26/21 03:12 Nucleated RBCs # 0.0 /100WBC 10/26/21 03:12 Sodium 140 mmol/L (136-145) 10/26/21 03:12 Potassium 3.7 mmol/L (3.5-5.1) 10/26/21 03:12 Chloride 100 mmol/L (98-107) 10/26/21 03:12 Carbon Dioxide 26 mmol/L (22-29) 10/26/21 03:12 Anion Gap 17.7 (5-19) 10/26/21 03:12 BUN 17 mg/dL (6-20) 10/26/21 03:12 Creatinine 1.0 mg/dL (0.7-1.2) 10/26/21 03:12 GFR Calculation 83.6 mL/min (90-130) L 10/26/21 03:12 Glucose 91 mg/dL (65-115) 10/26/21 03:12 Calculated Osmolality 291 mOsm/kg (285-295) 10/26/21 03:12 Calcium 9.6 mg/dL (8.5-10.5) 10/26/21 03:12 Total Bilirubin 0.7 mg/dL (0.15-1.2) 10/26/21 03:12 AST 23 U/L (0-40) 10/26/21 03:12 ALT 14 U/L (0-41) 10/26/21 03:12 Alkaline Phosphatase 85 IU/L (40-130) 10/26/21 03:12 Total Protein 7.7 g/dL (6.6-8.7) 10/26/21 03:12 Albumin 5.0 g/dL (3.5-5.2) 10/26/21 03:12 Globulin 2.7 g/dL (1.3-4.6) 10/26/21 03:12 Lipase 27 U/L (13-60) 10/26/21 03:12 Discharge Plan Discharge Patient Disposition: Home Clinical Impression: Chronic pain, Nausea Condition: Stable Prescriptions: New ondansetron 4 mg tablet,disintegrating 4 mg PO Q6H PRN (Reason: nausea and vomiting) Qty: 14 0RF No Action pregabalin [Lyrica] 100 mg capsule 100 mg PO TID 30 Days Qty: 90 0RF quetiapine [Seroquel] 100 mg tablet 100 mg PO .HS Qty: 30 2RF sertraline [Zoloft] 100 mg tablet 100 mg PO DAILY Qty: 30 2RF risperidone [Risperdal] 1 mg tablet 1 mg PO DAILY Qty: 30 2RF albuterol sulfate 90 mcg/actuation HFA aerosol inhaler 2 puff inhalation Q6H PRN (Reason: Shortness Of Breath) 0RF ondansetron 4 mg tablet,disintegrating 4 mg PO Q8H PRN (Reason: nausea and vomiting) Qty: 15 0RF Discharge Orders: Discharge ED (Routine); Ordered 10/26/21 Ordered By: Brent Lee Discharge Diet: Advance as tolerated Discharge Activity: Resume usual activity Patient Instructions: Back Pain (ED) Coding Level of Care Code ED Cotton Presser for Chg Fwd Exam Comprehensive
[2021-10-26] MEDS: ondansetron 2 mg/ML SDV 2 mL 4 MG IVP (03:13)
[2021-10-26] MEDS: sodium chloride 0.9% 1,000 ML 999 ML IV (03:13)
[2021-10-26 03:17] LABS: Basophils % 0.3 %; Eosinophils % 0.1 %; Hematocrit 46.6 % (42.0-52.0); Hemoglobin 16.3 g/dL (11.7-16.6); Lymphocytes # 2.5 10^3/uL (0.8-4.8); Lymphocytes % 17.8 %; Mean Corpuscular Hemoglobin 30.1 pg (28.0-34.0); Mean Platelet Volume 9.4 fL (7.4-10.4); Monocytes # 1.1 10^3/uL (0.2-0.9); Neutrophils # 10.37 10^3/uL (1.8-7.7); Neutrophils % 73.4 %; Nucleated Red Blood Cells % 0 %; Platelet Count 260 10^3/cmm (130-400); Red Blood Count 5.42 10^6/uL (4.1-5.3); Red Cell Distribution Width 13.1 % (12.1-15.1); White Blood Count 14.1 10^3/uL (4.0-10.0)
[2021-10-26 03:38] LABS: Alanine Aminotransferase 14 U/L (0-41); Alkaline Phosphatase 85 IU/L (40-130); Anion Gap 17.7 (5-19); Aspartate Amino Transferase 23 U/L (0-40); Blood Urea Nitrogen 17 mg/dL (6-20); Calcium 9.6 mg/dL (8.5-10.5); Carbon Dioxide 26 mmol/L (22-29); Chloride 100 mmol/L (98-107); Globulin 2.7 g/dL (1.3-4.6); Glomerular Filtration Rate 83.6 mL/min (90-130); Glucose 91 mg/dL (65-115); Lipase 27 U/L (13-60); Osmolality Calculated 291 mOsm/kg (285-295); Potassium 3.7 mmol/L (3.5-5.1); Sodium 140 mmol/L (136-145); Total Bilirubin 0.7 mg/dL (0.15-1.2); Total Protein 7.7 g/dL (6.6-8.7)
== END 2021-10-26 04:05 | disposition home or self-care (01) ==
PROVIDERS: Emergency Provider Emergency Medicine
DX: G89.29 Other chronic pain (principal); R11.0 Nausea; F17.210 Nicotine dependence, cigarettes, uncomplicated
CPT/HCPCS: 80053; 83690; 85025; 96361; 96374; 99284; J2405; J7030

== ENCOUNTER → 2021-11-14 14:22 | Outpatient (BNVA) | payer MEDICARE, MEDICAID, OTHER, SELFPAY | PROVIDERS: Visit Provider Physician Assistant | DX: M48.062 Spinal stenosis, lumbar region with neurogenic claudication (principal) | CPT/HCPCS: 99213 ==

== ENCOUNTER 2021-12-18 06:32 | Day surgery (SDC) | payer MEDICARE, MEDICAID, SELFPAY ==
[2021-12-15 12:48] VITALS: BMI 21.5
--- NOTE | 2021-12-15 13:13 | ANES.PREANE2 ---
Pre-Anesthetic Assessment Height/Weight: Height 1.78 m Weight 68.039 kg Operation Date: 12/18/21 08:50 Proposed Procedures p Lumbar Spine Decompression L4/5 58970/M48.062(Left) - Jt Quinones DO Familial anesthetic complications: PONV Social Tobacco and No alcohol Exam alert, oriented x 3, clear to auscultation bilaterally and regular rate & rhythm Airway Mallampati: Class III Dentition: full Pulmonary Asthma CV/HEM None reported None reported Hepatic None reported GI Gastroesophageal Reflux Disease Metabolic None reported Musc/skel Lower Back Pain Neuropsych None reported Anesthetic Plan ASA status: 3 Anesthesia: General Risk of > 500 ml blood loss (7ml/kg in children): No Medications/Allergies Home Medications Medication Instructions Recorded Confirmed Last Taken Type albuterol sulfate 90 mcg/actuation 2 puff inhalation Q6H PRN 08/29/21 12/15/21 Unknown History aerosol inhaler Shortness Of Breath quetiapine 100 mg tablet (Seroquel) 100 mg PO .HS #30 tabs 10/18/21 12/15/21 Unknown Rx pregabalin 100 mg capsule (Lyrica) 100 mg PO TID 30 days #90 caps 11/17/21 12/15/21 Unknown Rx Allergies Allergy/AdvReac Type Severity Reaction Status Date / Time No Known Allergies Allergy Verified 11/14/21 14:49 [facility] Anesthesia Medical History Chronic pain Lumbar stenosis with neurogenic claudication No pertinent family history Psychiatric care Social History Smoking and tobacco status: current some day smoker (trying to cut back) cigarettes Packs smoked per day: 0.5 Years cigarettes smoked: 20 Quit status (tobacco): has tried quititng Number of times tried to quit tobacco: 6 Second hand smoke exposure: Yes Current gender identity: Female Data Anesthesia Cardiac Studies: No Data to Display
[2021-12-18] VITALS (9 sets, daily range): BP systolic 124–141; BP diastolic 71–88; PULSE 55–71; RESP 12–18; TEMP 36.2–36.6; O2SAT 98–100
--- NOTE | 2021-12-18 | XR_ITS ---
WS: [id number] INTRAOPERATIVE TECHNIQUE: 3 Spot fluoroscopic images for intraoperative purposes. FLUOROSCOPY TIME: 9.9 seconds CLINICAL INFORMATION: lumbar decompression L4/L5 COMPARISON: None. FINDINGS: Localization markers overlying the LEFT L4-L5 interspace and L5 vertebral body. XR/XR lumbar spine 1V [id number] IMPRESSION: Images obtained for intraoperative purposes.
--- NOTE | 2021-12-18 | SCC_ITS ---
Procedure done: 1. L4/5 laminectomy with partial facetectomy 9.9 seconds of fluoroscopic guidance, for a cumulative dose of 2.51 mGy, was provided to Dr. Quinones by the radiology department. C-arm images of the lumbar spine were saved for the patient's permanent record. [facility]
[2021-12-18] MEDS: scopolamine 1.5 Patch 1 PATCH TRANSDERMA (09:10)
[2021-12-18] MEDS: HYDROmorphone 1 mg/mL INJ 1 mL 0.5 MG IVP (09:23)
--- NOTE | 2021-12-18 09:39 | P.ANESUD_ITS ---
Pre-Anesthetic Update Pre-Anesthetic Assessment: Date of Surgery/Procedure: 12/18/21 Preop Maryann gnosis: Lumbar Stenosis w/Radiculopathy Proposed Procedure: Operation Date: 12/18/21 08:50 Proposed Procedures p Lumbar Spine Decompression L4/5 83894/M48.062(Left) - Jt Quinones, DO Any changes to Pre-Anesthetic Assessment?: No Last Intake: Intake Last Liquid Date 12/17/21 Last Liquid Time 18:00 Last Solid Date 12/18/21 Last Solid Time 00:00 Vitals: Temperature 97.2 F L 12/18/21 07:11 Temperature Source Temporal Artery S can 12/18/21 07:11 Pulse Rate 71 12/18/21 07:11 Respiratory Rate 16 12/18/21 09:23 Respiratory Depth Normal 12/18/21 09:23 Respiratory Patter n 12/18/21 09:23 Blood Pressure 141/88 12/18/21 07:11 Blood Pressure Sharla n 105 12/18/21 07:11 Pulse Oximetry 99 12/18/21 07:11 Oxygen Delivery Me thod 12/18/21 07:11 Exam: Pre-Anes Outpt Exam: alert, oriented x 3 and regular rate & rhythm Cardiac Studies: No Data to Display
[2021-12-18] MEDS: sodium chloride 0.9% 1,000 ML 30 ML IV (09:40)
--- NOTE | 2021-12-18 09:49 | PM.HP ---
Providers/Chief Complaint Chief Complaint: LUMBAR DECOMPRESSION L4/5 14969/M48.062 History of Present Illness Nghia Cosby is a 36 year old male he received lumbar?pain management injections with Dr. Leonard. He has had this pain for years. Besides the shot, he has tried yoga. Patient is rating their pain 6/10 today. Lower back, hip pain. Patient has had great relief with both his injection and Lyrica. Up to a few weeks ago had almost no pain. They state that pain is consisting of sharp, pain, burning, etc. Patient says that they do feel better at this point and they aren't as in much pain as before they had the injection.? He is back today discussed treatment options.? Review of Systems Const: Denies: fever(s) or chills Card: Denies: chest pain or dyspnea on exertion Resp: Denies: dyspnea, productive cough or wheezing GI: Denies: abdominal pain, nausea or vomiting Musc: Reports: joint pain, joint swelling and limited range of motion Skin/Breast: Denies: changes in skin color or dry skin Neuro: Denies: numbness in extremities or weakness in extremities Psych: Denies: anxiety Carlos/Lymph: Denies: easy bruising or easy bleeding Medications/Allergies Home Medications Medication Instructions Recorded Confirmed Last Taken Type albuterol sulfate 90 mcg/actuation 2 puff inhalation Q6H PRN 08/29/21 12/18/21 12/18/21 History aerosol inhaler Shortness Of Breath quetiapine 100 mg tablet (Seroquel) 100 mg PO .HS #30 tabs 10/18/21 12/18/21 12/17/21 Rx pregabalin 100 mg capsule (Lyrica) 100 mg PO TID 30 days #90 caps 11/17/21 12/18/21 12/17/21 Rx Allergies Allergy/AdvReac Type Severity Reaction Status Date / Time No Known Allergies Allergy Verified 12/18/21 07:10 PFSH Acute PFSH: Medical History Chronic pain Lumbar stenosis with neurogenic claudication No pertinent family history Psychiatric care Social History Smoking and tobacco status: current some day smoker (trying to cut back) cigarettes Packs smoked per day: 0.5 Years cigarettes smoked: 20 Quit status (tobacco): has tried quititng Number of times tried to quit tobacco: 6 Second hand smoke exposure: Yes Current gender identity: Female Vitals/I&O/Wt Last Vital Signs Temp 97.2 F L 12/18/21 07:11 Pulse 71 12/18/21 07:11 Resp 16 12/18/21 09:23 BP 141/88 12/18/21 07:11 Pulse Ox 99 12/18/21 07:11 O2 Del Method 12/18/21 07:11 Physical Exam Narrative: CONSTITUTIONAL: The patient is a normal appearing [] in no apparent distress. GENERAL: Patient in no acute distress. CARDIAC: Regular rate and rhythm. CHEST: Normal inspiratory effort, normal respiratory rate. ABDOMEN: Soft and nontender. SKIN: Clear, warm and intact. NEURO?PSYCH: The patient is alert and oriented to person, place and time. Sensorv /SILT Motor StrengthShoulder abduction C5 5/5Wrist extension C6 5/5Elbow extension C7 5/5Hand Sulfonation Equipment Operator C8 5/5Finger abduction T15/5 Radial/ Ulnar/ Median n intact LowerSensory (SILT)Motor StrengthHin flexion L2/3Ant/inner thigh 5/5Hip adduction L2/3 5/5Knee extension L4 Lat thigh, 5/5Toe dorsiflexion L5 5/5Ankle dorsiflexion L5/ N74Jewtitn flexion S1 5/5 DTRBleeps 2+Triceps 2+Brachioradialis 2+Patellar 2+Achilles 2+ MUSCULOSKELETAL: [] UPPEREXTREMITIES: The patient had full active ROM in fingers, wrist, elbow, and shoulder. The patient demonstrated ability to fully flex/extend/abduct/adduct fingers, make ok sign, cross 2nd/3rd digits, extend 1st digit fully.. Radial pulse 2+, CR<2 seconds. LOWER EXTREMITIES: Pt has fu A&P Assessment and plan (1) Bulging of intervertebral disc between L4 and L5: L4/5 MIS decompression Status: Acute Attestations Medical Necessity Statement*: failed conservative tx Coding Level of Care Code Acute Registered Nurse Surgical Services for [facility] Fwd Diagnoses Bulging of intervertebral disc between L4 and L5 M51.26
[2021-12-18] MEDS: ceFAZolin 2,000 MG in sodium chloride 0.9% (plus) 50 ML 100 MG IV (09:56)
--- NOTE | 2021-12-18 11:10 | P.PCN_ITS ---
PACU note Narrative: VSS, Good respiratory effort, report to PSYCHOLOGICAL ANTHROPOLOGIST Exam: awake
--- NOTE | 2021-12-18 11:10 | PM.PACU ---
PACU note Narrative: VSS, Good respiratory effort, report to STATION HELPER Exam: awake
--- NOTE | 2021-12-18 11:19 | P.OP_ITS ---
Operative Report Date of procedure: December 18, 2021 Pre-op diagnosis: Preop Diagnosis Lumbar Stenosis w/Radiculopathy Post-op diagnosis: same Procedure done: 1. L4/5 laminectomy with partial facetectomy Surgeon: Jt Quinones Quality Process Engineer: Jt Quinones Estimated blood loss (mL): 5 Procedure: 1. L4/5 laminectomy with partial facetectomy Patient is brought to the operative suite. After undergoing anesthesia they are placed in the prone position. All areas of impingement are well padded. Patient is then prepped and draped in the normal sterile fashion. A skin incision is made over the L4-5 level. This is confirmed under c-arm guidance. A series of dilators are passed and the tubular retractor is docked on the L4 lamina. A bovie is used to clear the soft tissue off the lamina and the L 4/5 facet joint. A high speed martin is then used to perform the laminectomy and take down the medial aspect of the L 4/5 facet joint. A kerrison rongeure was then used to take down the remaining lamina and smooth the edge of the laminectomy up to the point where the ligamentum flavum attaches. Attention was then brought to the medial aspect of the facet joint. The remaining medial aspect of the superior and inferior aspect of the facet joint were taken down with the kerrison from the pedicle of L4 to L 5. The facet joint had significant hypertrophy. Attention was then brought to the Ligamentum Flavum. The ligament was taken down from the lamina of L4 to L5 and out medially to the remaining facet joint. The ligament was thick. The dura was then exposed. The dura was in good repair. The L4 nerve was then traced with a curette out the L4/5 foramen and found to be adequately decompressed. The L5 nerve was traced with a curette around the L5 pedicle. The lateral recess was opened with a kerrison helping to further decompress the L5 nerve. Wound is then irrigated copiously with saline and surgiflo is used to stop any bleeding. The tubular retractor is removed and the wound is closed with vicryl and monocryl suture. Glue is then used to protect the wound. A sterile dressing is then placed. Patient was then placed in the supine position and transferred to the PACU in stable condition.
[2021-12-18] MEDS: HYDROcodone-acetaminophen 5-325 mg Tablet 1 TAB PO (11:45)
--- NOTE | 2021-12-18 11:47 | SUR.PHASEII ---
[id number] pt up to bathroom and stated he had a bm and hygiene given per pt and assisted back to room and at bedside
--- NOTE | 2021-12-18 13:06 | ANE.PACU2 ---
Inpatient post-anesthesia follow up: Airway intact: Yes Vital signs: Temperature 98 F Pulse Rate 60 Respiratory Rate 18 Blood Pressure 130/72 Pulse Oximetry 99 Oxygen Delivery Me thod Room Air Oxygen Flow Rate 6 Fraction of Inspir ed Oxygen Hydration adequate: Yes Nausea and vomiting: No Pain level: 4 Mental status: Baseline
== END 2021-12-18 12:30 | disposition home or self-care (01) ==
PROVIDERS: Visit Provider Orthopaedic Surgery
PROC: (CPT 63005; principal; 2021-12-18 08:50)
DX: M48.062 Spinal stenosis, lumbar region with neurogenic claudication (principal); K21.9 Gastro-esophageal reflux disease without esophagitis; F17.210 Nicotine dependence, cigarettes, uncomplicated
CPT/HCPCS: 63047; 72020; 76000; J1100; J1170; J2250; J2405; J2704; J2710; J3010; J3490; J7030

== ENCOUNTER 2022-01-03 18:23 | Emergency (ER) | payer MEDICARE, MEDICAID, SELFPAY ==
[2022-01-03 18:29] VITALS: BP 164/107; PULSE 143; RESP 18; TEMP 37.7; O2SAT 97; BMI 22.1
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
--- NOTE | 2022-01-03 19:14 | XRR_ITS ---
PROCEDURE INFORMATION: Exam: XR Lumbosacral Spine Exam date and time: 01/03/2022 7:17 PM Age: 36 years old Clinical indication: Injury or trauma; Fall; Blunt trauma (contusions or hematomas); Additional info: Lumbar injury TECHNIQUE: Imaging protocol: Radiologic exam of the lumbosacral spine. Views: 2 or 3 views. COMPARISON: OT XR lumbar spine 1V [id number] 12/18/2021 8:23 AM FINDINGS: Bones/joints: Transitional lumbosacral segment is noted with pseudoarticulation with sacrum on the left. Degenerative disc space narrowing L5-transitional. Soft tissues: Unremarkable. Other findings: No acute bony findings. XR/XR lumbar spine 2-3V* [id number] IMPRESSION: No acute findings.
[2022-01-03] MEDS: ketorolac 30 mg/mL INJ IM (19:35)
[2022-01-03] MEDS: HYDROcodone-acetaminophen 7.5-325 mg Tablet 1 TAB PO (19:35)
== END 2022-01-03 19:49 | disposition home or self-care (01) ==
PROVIDERS: Emergency Provider Nurse Practitioner Family
DX: M54.50 Low back pain, unspecified (principal); F17.210 Nicotine dependence, cigarettes, uncomplicated
CPT/HCPCS: 72100; 96372; 99284; J1885

== ENCOUNTER 2022-01-15 09:21 | Emergency (ER) | payer MEDICARE, MEDICAID, SELFPAY ==
[2022-01-15 09:28] VITALS: BP 143/83; PULSE 75; RESP 14; TEMP 36.4; O2SAT 94; BMI 21.5
[2022-01-15 09:52] VITALS: BP 137/85; PULSE 78; RESP 14; TEMP 36.4; O2SAT 97
[2022-01-15] MEDS: haloperidol inj 5 mg/mL INJ 1 mL 2.5 MG IVP (10:10)
[2022-01-15] MEDS: ondansetron 2 mg/ML SDV 2 mL 4 MG IVP (10:10)
[2022-01-15] MEDS: sodium chloride 0.9% 1,000 ML 999 ML IV ×2 (10:11→11:24)
[2022-01-15] MEDS: midazolam 1 mg/mL INJ 2 mL IVP (10:11)
--- NOTE | 2022-01-15 10:50 | XR_ITS ---
WS: [id number] PORTABLE CHEST HISTORY: dyspnea/cough COMPARISON: 05/23/2013 Lungs are clear and well expanded. No pleural effusion or pneumothorax. Cardiac size: Normal. Mediastinum/Aorta: Normal mediastinum. No osseous abnormality seen. XR/XR chest 1V portable [id number] IMPRESSION: Unremarkable portable chest.
--- NOTE | 2022-01-15 10:51 | ED_ITS ---
HPI - Nausea/Vomiting/Diarrhea General: Chief complaint: Nausea/Vomiting/Diarrhea Stated complaint: High fever and throwng up Time Seen by Provider: 01/15/22 09:34 Source: patient Mode of arrival: ambulatory History of Present Illness: 36-year-old male presents emergency room with persistent nausea vomiting for last 24 hours report of subjective fever at home. No dysuria urgency or frequency mild abdominal discomfort denies chest pain. Has had problems with nausea vomiting related to marijuana use in the past he still does use marijuana regularly. No hematemesis or coffee-ground emesis. MD elicited complaint: nausea and vomiting Onset (ago): minute(s) Description of vomiting: watery and bilious Associated nausea: Yes Associated abdominal pain: Yes Location of pain: Diffuse Radiation: diffuse Pain consistency: intermittent Quality: cramping Exacerbating factors: none Relieving factors: none Associated symtoms: Reports nausea Review of Systems GI: Reports: nausea [facility] ED PFSH: Medical History Chronic pain Lumbar stenosis with neurogenic claudication No pertinent family history Psychiatric care Social History Smoking and tobacco status: current some day smoker (trying to cut back) cigarettes Packs smoked per day: 0.5 Years cigarettes smoked: 20 Quit status (tobacco): has tried quititng Number of times tried to quit tobacco: 6 Second hand smoke exposure: Yes Current gender identity: Female Course Vital Signs: Vital signs: Vital Signs Temperature 97.5 F L 01/15/22 09:52 Pulse Rate 78 01/15/22 12:42 Respiratory Rate 14 01/15/22 12:42 Blood Pressure 138/70 01/15/22 12:42 Pulse Oximetry 98 01/15/22 12:42 Oxygen Delivery Me thod 01/15/22 09:52 MDM - Nausea/Vomiting/Diarrhea Medical Decision Making Nausea and vomiting improved with medications and with fluids discharge home clear liquid diet. Encouraged to decrease or eliminate use of marijuana. Use promethazine as needed follow-up as needed Medical Records I reviewed the patient's medical records. Lab Data I reviewed the patient's lab results. : 01/15/22 10:03 01/15/22 10:03 Radiology Impressions Chest X-Ray 01/15/22 10:50 IMPRESSION: Unremarkable portable chest. Laboratory Results WBC 8.6 10^3/uL (4.0-10.0) 01/15/22 10:03 RBC 5.10 10^6/uL (4.1-5.3) 01/15/22 10:03 Hgb 15.4 g/dL (11.7-16.6) 01/15/22 10:03 Hct 47.2 % (42.0-52.0) 01/15/22 10:03 MCV 92.5 fl (80-94) 01/15/22 10:03 MCH 30.2 pg (28.0-34.0) 01/15/22 10:03 MCHC 32.6 g/dL (30.0-36.0) 01/15/22 10:03 RDW 13.0 % (12.1-15.1) 01/15/22 10:03 Plt Count 266 10^3/cmm (130-400) 01/15/22 10:03 MPV 9.0 fL (7.4-10.4) 01/15/22 10:03 Neut % (Auto) 63.1 % 01/15/22 10:03 Lymph % (Auto) 26.7 % 01/15/22 10:03 Arthur % (Auto) 8.1 % 01/15/22 10:03 Eos % (Auto) 1.3 % 01/15/22 10:03 Baso % (Auto) 0.5 % 01/15/22 10:03 Neut # (Auto) 5.44 10^3/uL (1.8-7.7) 01/15/22 10:03 Lymph # (Auto) 2.3 10^3/uL (0.8-4.8) 01/15/22 10:03 Arthur # (Auto) 0.7 10^3/uL (0.2-0.9) 01/15/22 10:03 Eos # (Auto) 0.1 10^3/uL (0.0-0.8) 01/15/22 10:03 Baso # (Auto) 0.0 10^3/uL (0.0-0.1) 01/15/22 10:03 Nucleated RBC % (auto) 0 % 01/15/22 10:03 Nucleated RBCs # 0.0 /100WBC 01/15/22 10:03 Sodium 138 mmol/L (136-145) 01/15/22 10:03 Potassium 4.2 mmol/L (3.5-5.1) 01/15/22 10:03 Chloride 97 mmol/L (98-107) L 01/15/22 10:03 Carbon Dioxide 31 mmol/L (22-29) H 01/15/22 10:03 Anion Gap 14.2 (5-19) 01/15/22 10:03 BUN 10 mg/dL (6-20) 01/15/22 10:03 Creatinine 0.9 mg/dL (0.7-1.2) 01/15/22 10:03 GFR Calculation 94.4 mL/min (90-130) 01/15/22 10:03 Glucose 100 mg/dL (65-115) 01/15/22 10:03 Calculated Osmolality 285 mOsm/kg (285-295) 01/15/22 10:03 Calcium 9.3 mg/dL (8.5-10.5) 01/15/22 10:03 Total Bilirubin 0.3 mg/dL (0.15-1.2) 01/15/22 10:03 AST 16 U/L (0-40) 01/15/22 10:03 ALT 9 U/L (0-41) 01/15/22 10:03 Alkaline Phosphatase 87 U/L (40-130) 01/15/22 10:03 Total Protein 7.3 g/dL (6.6-8.7) 01/15/22 10:03 Albumin 4.2 g/dL (3.5-5.2) 01/15/22 10:03 Globulin 3.1 g/dL (1.3-4.6) 01/15/22 10:03 Urine Color Straw (Yellow) 01/15/22 11:27 Urine Appearance Clear (CLEAR) 01/15/22 11:27 Urine pH 7 (5-7) 01/15/22 11:27 Ur Specific [place] 1.015 (1.005-1.030) 01/15/22 11:27 Urine Protein Neg (Negative) 01/15/22 11:27 Urine Glucose (UA) Norm (Normal) 01/15/22 11:27 Urine Ketones Negative (Negative) 01/15/22 11:27 Urine Blood Neg (Negative) 01/15/22 11:27 Urine Nitrate Negative (Negative) 01/15/22 11:27 Urine Bilirubin Neg (Negative) 01/15/22 11:27 Urine Urobilinogen Norm mg/dL (Negative) 01/15/22 11:27 Ur Leukocyte Esterase Negative (Negative) 01/15/22 11:27 Discharge Plan Discharge Patient Disposition: Home Clinical Impression: Nausea & vomiting Condition: Stable Prescriptions: New promethazine 25 mg tablet 25 mg PO Q6H PRN (Reason: nausea and vomiting) Qty: 20 0RF No Action quetiapine [Seroquel] 100 mg tablet 100 mg PO .HS Qty: 30 2RF pregabalin [Lyrica] 100 mg capsule 100 mg PO TID 30 Days Qty: 90 0RF cyclobenzaprine 10 mg tablet 10 mg PO TID PRN (Reason: muscle spasm) Qty: 60 0RF albuterol sulfate 90 mcg/actuation HFA aerosol inhaler 2 puff inhalation Q6H PRN (Reason: Shortness Of Breath) hydrocodone-acetaminophen 5-325 mg tablet 1 tab PO Q6H Qty: 10 0RF Discharge Orders: Discharge ED (Routine); Ordered 01/15/22 Ordered By: Elver Napoles Discharge Diet: Clear Liquid Discharge Activity: Resume usual activity Patient Instructions: Opioid Safety Activity Restrictions/Additional Instructions: Clear liquid diet for 24 to 48 hours and advance as tolerated. If symptoms persist follow-up with your primary care physician. Coding Level of Care Code ED Director Business Development for [facility] Brumfield
[2022-01-15 10:58] LABS: Basophils % 0.5 %; Eosinophils # 0.1 10^3/uL (0.0-0.8); Eosinophils % 1.3 %; Hematocrit 47.2 % (42.0-52.0); Hemoglobin 15.4 g/dL (11.7-16.6); Lymphocytes # 2.3 10^3/uL (0.8-4.8); Lymphocytes % 26.7 %; Mean Corpuscular HGB Conc 32.6 g/dL (30.0-36.0); Mean Corpuscular Hemoglobin 30.2 pg (28.0-34.0); Mean Corpuscular Volume 92.5 fl (80-94); Monocytes # 0.7 10^3/uL (0.2-0.9); Monocytes % 8.1 %; Neutrophils # 5.44 10^3/uL (1.8-7.7); Neutrophils % 63.1 %; Nucleated Red Blood Cells % 0 %; Platelet Count 266 10^3/cmm (130-400); White Blood Count 8.6 10^3/uL (4.0-10.0)
[2022-01-15 11:00] VITALS: BP 132/78; PULSE 74
[2022-01-15 11:16] LABS: Alanine Aminotransferase 9 U/L (0-41); Albumin Level 4.2 g/dL (3.5-5.2); Alkaline Phosphatase 87 U/L (40-130); Aspartate Amino Transferase 16 U/L (0-40); Blood Urea Nitrogen 10 mg/dL (6-20); Calcium 9.3 mg/dL (8.5-10.5); Carbon Dioxide 31 mmol/L (22-29); Chloride 97 mmol/L (98-107); Globulin 3.1 g/dL (1.3-4.6); Glomerular Filtration Rate 94.4 mL/min (90-130); Glucose 100 mg/dL (65-115); Osmolality Calculated 285 mOsm/kg (285-295); Sodium 138 mmol/L (136-145); Total Bilirubin 0.3 mg/dL (0.15-1.2); Total Protein 7.3 g/dL (6.6-8.7)
[2022-01-15 11:17] LABS: Anion Gap 14.2 (5-19); Potassium 4.2 mmol/L (3.5-5.1)
[2022-01-15 11:31] LABS: Add Urine Microscopic? NO; Charge for UA Resulting for Rev
[2022-01-15 11:39] LABS: Bilirubin Urine Neg (Negative); Blood Urine Neg (Negative); Glucose Urine UA Norm (Normal); Ketones Urine Negative (Negative); Leukocyte Esterase Urine Negative (Negative); Nitrate Urine Negative (Negative); Protein Urine Neg (Negative); Specific Gravity, Urine 1.015 (1.005-1.030); Urine Appearance Clear (CLEAR); Urine Color Straw (Yellow); Urobilinogen Urine Norm (Negative); pH Urine 7 (5-7)
[2022-01-15 12:41] VITALS: BP 138/74
[2022-01-15 12:42] VITALS: BP 138/70; PULSE 78; RESP 14; O2SAT 98
--- NOTE | 2022-01-16 10:41 | DCPLANNER ---
Addendum entered by Krystin Alonzo 01/16/22 10:44: this note was made on wrong patient Original Note: land development manager had message to schedule an outpatient 48 hour halter monitor for patient. land development manager called [phone] to confirm that patient wanted to have the test and to confirm who patient sees for primary care. land development manager unable to speak with patient at this time, a recording stated that the number was not reachable. land development manager did not order the halter, due to not being able to speak with patient.
== END 2022-01-15 12:43 | disposition home or self-care (01) ==
PROVIDERS: Emergency Provider Family Medicine
DX: R11.2 Nausea with vomiting, unspecified (principal); F17.210 Nicotine dependence, cigarettes, uncomplicated
CPT/HCPCS: 71045; 80053; 81003; 85025; 96361; 96374; 96375; 99284; J1630; J2250; J2405; J7030

== ENCOUNTER → 2022-01-16 13:44 | Outpatient (BNVA) | payer MEDICARE, MEDICAID, SELFPAY | PROVIDERS: Visit Provider Physician Assistant | DX: Z47.89 Encounter for other orthopedic aftercare (principal) | CPT/HCPCS: 99024 ==

== ENCOUNTER → 2022-01-20 11:10 | Outpatient (BNVA) | payer MEDICARE, MEDICAID, SELFPAY | PROVIDERS: Visit Provider Registered Nurse Neonatal Intensive Care | DX: R50.9 Fever, unspecified (principal) | CPT/HCPCS: 87426 ==

== ENCOUNTER 2022-01-29 20:58 | Emergency (ER) | payer MEDICARE, MEDICAID, SELFPAY ==
[2022-01-29 21:00] VITALS: BP 149/84; PULSE 128; RESP 20; TEMP 36.6; O2SAT 95; BMI 21.2
--- NOTE | 2022-01-29 22:39 | XRR_ITS ---
PROCEDURE INFORMATION: Exam: XR Abdomen Exam date and time: 01/29/2022 10:44 PM Age: 36 years old Clinical indication: Abdominal pain; Additional info: Constipation TECHNIQUE: Imaging protocol: Radiologic exam of the abdomen. Views: Frontal supine view of the abdomen. 1 View. COMPARISON: CT abdomen pelvis w con* [id number] 08/29/2021 4:04 PM FINDINGS: Gastrointestinal tract: There is moderate fecal stasis throughout the colon. There are prominent gastric rugae. No abnormally dilated loops of small bowel are noted. Bones/joints: No acute fracture. There are marginal osteophytes of the lower lumbar spine. Other findings: There are no abnormal calcifications. XR/XR KUB [id number] IMPRESSION: 1. Moderate fecal stasis consistent with history of constipation. 2. Findings suggestive of gastritis. Clinical correlation is necessary.
--- NOTE | 2022-01-29 22:40 | W.ED.NAVMDI ---
HPI - Nausea/Vomiting/Diarrhea General: Chief complaint: Nausea/Vomiting/Diarrhea Stated complaint: abd pain, N/V Time Seen by Provider: 01/29/22 22:38 History of Present Illness: 36-year-old male patient comes in today for complaints of nausea and vomiting for 1 to 2 weeks. Patient states that most of his vomiting episodes started after being placed on methadone about 1 month ago. Patient reports that he has had episodes like this in the past. Patient appears nontoxic. Patient appears in no pain. Associated nausea: Yes Associated symtoms: Reports nausea; Denies chest pain Review of Systems General: Reports: 10 or more systems reviewed and unremarkable except in HPI and below Const: Denies: fever(s) Card: Denies: chest pain Resp: Denies: dyspnea GI: Reports: nausea, vomiting and constipation; Denies: diarrhea : Denies: difficulty urinating Musc: Denies: neck pain Skin/Breast: Denies: rash PFSH ED PFSH: Medical History Chronic pain Lumbar stenosis with neurogenic claudication No pertinent family history Psychiatric care Social History Smoking and tobacco status: current some day smoker (trying to cut back) cigarettes Packs smoked per day: 0.5 Years cigarettes smoked: 20 Quit status (tobacco): has tried quititng Number of times tried to quit tobacco: 6 Second hand smoke exposure: Yes Current gender identity: Female Physical Exam Const: COMMON NORMALS: alert HENMT: COMMON NORMALS: normocephalic HEAD & SCALP: normocephalic Neck/C-Spine: COMMON NORMALS: full ROM Resp: COMMON NORMALS: normal respiratory effort Cardio: COMMON NORMALS: regular rate and regular rhythm RATE: regular rate RHYTHM: regular rhythm GI: COMMON NORMALS: Soft to palpation AUSCULTATION: Yes normoactive bowel sounds PALPATION: Yes Soft to palpation and No Tenderness to palpation present (GI) Back/Pelvis: COMMON NORMALS: thoracic and lumbar spine normal to inspection Extremity: COMMON NORMALS: normal to inspection Neuro: SENSORIUM/ORIENTATION: Yes alert Skin: COMMON NORMALS: turgor normal GENERAL SKIN EXAM: turgor normal Course Vital Signs: Vital signs: Vital Signs Temperature 97.9 F 01/29/22 21:00 Pulse Rate 128 H 01/29/22 21:00 Respiratory Rate 20 H 01/29/22 21:00 Blood Pressure 149/84 01/29/22 21:00 Pulse Oximetry 95 01/29/22 21:00 Oxygen Delivery Me thod 01/29/22 21:00 MDM - Nausea/Vomiting/Diarrhea Medical Decision Making Patient comes in today for persistent nausea and vomiting for the last 3 to 4 weeks. Patient reports multiple episodes and inability to hold fluids and meals down. Patient appears nontoxic. Patient reports no significant weight loss. Abdomen has some epigastric tenderness on palpation. Bowel sounds are normal. Vital signs note a pulse of 128 and respirations of 20. Differential diagnosis includes but not limited to bowel obstruction, GERD, pancreatitis, gastroenteritis, gastritis. Laboratory values noted a white count of 12,000. CMP was notable for BUN of 27. Lipase was normal. KUB noted constipation and gastritis. Reviewed exam with patient with recommendations for treatment of gastritis. Patient reports that he does take pantoprazole daily so we will increase the dosing to 40 mg twice a day and add Reglan routinely. We will also arrange for patient to have follow-up with surgeon for upper endoscopy/EGD. Case management was requested to assist with appointment. Patient reported understanding of care plan and need for follow-up or return to the ER. Lab Data : 01/29/22 22:55 01/29/22 22:55 Radiology Impressions KUB X-Ray 01/29/22 22:39 IMPRESSION: 1. Moderate fecal stasis consistent with history of constipation. 2. Findings suggestive of gastritis. Clinical correlation is necessary. Laboratory Results WBC 12.1 10^3/uL (4.0-10.0) H 01/29/22 22:55 RBC 5.79 10^6/uL (4.1-5.3) H 01/29/22 22:55 Hgb 17.5 g/dL (11.7-16.6) H 01/29/22 22:55 Hct 52.2 % (42.0-52.0) H 01/29/22 22:55 MCV 90.2 fl (80-94) 01/29/22 22:55 MCH 30.2 pg (28.0-34.0) 01/29/22 22:55 MCHC 33.5 g/dL (30.0-36.0) 01/29/22 22:55 RDW 12.7 % (12.1-15.1) 01/29/22 22:55 Plt Count 322 10^3/cmm (130-400) 01/29/22 22:55 MPV 9.2 fL (7.4-10.4) 01/29/22 22:55 Neut % (Auto) 61.6 % 01/29/22 22:55 Lymph % (Auto) 29.7 % 01/29/22 22:55 Williams % (Auto) 7.8 % 01/29/22 22:55 Eos % (Auto) 0.3 % 01/29/22 22:55 Baso % (Auto) 0.3 % 01/29/22 22:55 Neut # (Auto) 7.47 10^3/uL (1.8-7.7) 01/29/22 22: Lymph # (Auto) 3.6 10^3/uL (0.8-4.8) 01/29/22 22:55 Williams # (Auto) 1.0 10^3/uL (0.2-0.9) H 01/29/22 22:55 Eos # (Auto) 0.0 10^3/uL (0.0-0.8) 01/29/22 22:55 Baso # (Auto) 0.0 10^3/uL (0.0-0.1) 01/29/22 22: Nucleated RBC % (auto) 0 % 01/29/22 22: Nucleated RBCs # 0.0 /100WBC 01/29/22 22:55 Sodium 137 mmol/L (136-145) 01/29/22 22:55 Potassium 3.9 mmol/L (3.5-5.1) 01/29/22 22:55 Chloride 93 mmol/L (98-107) L 01/29/22 22:55 Carbon Dioxide 33 mmol/L (22-29) H 01/29/22 22:55 Anion Gap 14.9 (5-19) 01/29/22 22:55 BUN 27 mg/dL (6-20) H 01/29/22 22:55 Creatinine 1.2 mg/dL (0.7-1.2) 01/29/22 22:55 GFR Calculation 67.8 mL/min (90-130) L 01/29/22 22:55 Glucose 81 mg/dL (65-115) 01/29/22 22:55 Calculated Osmolality 288 mOsm/kg (285-295) 01/29/22 22:55 Calcium 10.0 mg/dL (8.5-10.5) 01/29/22 22:55 Total Bilirubin 0.4 mg/dL (0.15-1.2) 01/29/22 22:55 AST 12 U/L (0-40) 01/29/22 22:55 ALT 11 U/L (0-41) 01/29/22 22:55 Alkaline Phosphatase 85 U/L (40-130) 01/29/22 22:55 Total Protein 7.7 g/dL (6.6-8.7) 01/29/22 22:55 Albumin 4.8 g/dL (3.5-5.2) 01/29/22 22:55 Globulin 2.9 g/dL (1.3-4.6) 01/29/22 22:55 Lipase 40 U/L (13-60) 01/29/22 22:55 Discharge Plan Discharge Patient Disposition: Home Clinical Impression: Gastritis Qualifiers: Gastritis type: unspecified gastritis Chronicity: chronic Gastritis bleeding: without bleeding Qualified Code(s): K29.50 - Unspecified chronic gastritis without bleeding Condition: Stable Prescriptions: New pantoprazole 40 mg tablet,delayed release (DR/EC) 40 mg PO BID Qty: 60 0RF metoclopramide HCl 10 mg tablet 10 mg PO QID 7 Days Qty: 28 0RF No Action quetiapine [Seroquel] 100 mg tablet 100 mg PO .HS Qty: 30 2RF sulfamethoxazole-trimethoprim [Bactrim DS] 800-160 mg tablet 1 tab PO BID 7 Days Qty: 14 0RF prednisone 20 mg tablet 20 mg PO DAILY Qty: 15 0RF Rx Instructions: Take 60 mg daily for days 1, 2, 3 Take 40 mg daily for days 4, 5 Take 20 mg daily for days 6, 7 pregabalin [Lyrica] 100 mg capsule 100 mg PO TID 30 Days Qty: 90 0RF cyclobenzaprine 10 mg tablet 10 mg PO TID PRN (Reason: muscle spasm) Qty: 60 0RF albuterol sulfate 90 mcg/actuation HFA aerosol inhaler 2 puff inhalation Q6H PRN (Reason: Shortness Of Breath) hydrocodone-acetaminophen 5-325 mg tablet 1 tab PO Q6H Qty: 10 0RF promethazine 25 mg tablet 25 mg PO Q6H PRN (Reason: nausea and vomiting) Qty: 20 0RF Discharge Orders: Discharge ED (Routine); Ordered 01/29/22 Ordered By: Salvador Batista Discharge Diet: Advance as tolerated Discharge Activity: Increase activity as tolerated Patient Instructions: Gastritis (ED) Activity Restrictions/Additional Instructions: Take pantoprazole 40 mg twice a day at least 30 minutes prior to first meal of the day and the last meal of the day. Use Reglan 30 minutes prior to each meal of the day and at bedtime. Follow-up with surgeon for endoscopy for evaluation of the stomach. Return to ER for new concerns or worsening symptoms. Coding Level of Care Code ED Supervisor Public Health Nursing for Julito Fwd Exam Comprehensive
[2022-01-29] MEDS: lactated ringers 1,000 ML 999 ML IV (22:50)
[2022-01-29] MEDS: ondansetron 2 mg/ML SDV 2 mL 4 MG IVP (22:50)
[2022-01-29 23:06] LABS: Basophils % 0.3 %; Eosinophils % 0.3 %; Hematocrit 52.2 % (42.0-52.0); Hemoglobin 17.5 g/dL (11.7-16.6); Lymphocytes # 3.6 10^3/uL (0.8-4.8); Lymphocytes % 29.7 %; Mean Corpuscular HGB Conc 33.5 g/dL (30.0-36.0); Mean Corpuscular Hemoglobin 30.2 pg (28.0-34.0); Mean Corpuscular Volume 90.2 fl (80-94); Mean Platelet Volume 9.2 fL (7.4-10.4); Monocytes % 7.8 %; Neutrophils # 7.47 10^3/uL (1.8-7.7); Neutrophils % 61.6 %; Nucleated Red Blood Cells % 0 %; Platelet Count 322 10^3/cmm (130-400); Red Blood Count 5.79 10^6/uL (4.1-5.3); Red Cell Distribution Width 12.7 % (12.1-15.1); White Blood Count 12.1 10^3/uL (4.0-10.0)
[2022-01-29] MEDS: metoclopramide 5 mg/mL SDV 2 mL 10 MG IVP (23:20)
[2022-01-29] MEDS: pantoprazole 40 mg SDV IVP (23:22)
[2022-01-29 23:26] LABS: Alanine Aminotransferase 11 U/L (0-41); Albumin Level 4.8 g/dL (3.5-5.2); Alkaline Phosphatase 85 U/L (40-130); Anion Gap 14.9 (5-19); Aspartate Amino Transferase 12 U/L (0-40); Blood Urea Nitrogen 27 mg/dL (6-20); Carbon Dioxide 33 mmol/L (22-29); Chloride 93 mmol/L (98-107); Globulin 2.9 g/dL (1.3-4.6); Glomerular Filtration Rate 67.8 mL/min (90-130); Glucose 81 mg/dL (65-115); Lipase 40 U/L (13-60); Osmolality Calculated 288 mOsm/kg (285-295); Potassium 3.9 mmol/L (3.5-5.1); Sodium 137 mmol/L (136-145); Total Bilirubin 0.4 mg/dL (0.15-1.2); Total Protein 7.7 g/dL (6.6-8.7)
[2022-01-30 00:27] VITALS: BP 139/89; PULSE 107; RESP 18; TEMP 36.9; O2SAT 97
--- NOTE | 2022-01-30 12:24 | DCPLANNER ---
Addendum entered by Krystin Alonzo 04/16/22 15:23: Patient had a follow up appointment scheduled with general surgery - patient did attend appointment. Addendum entered by Krystin Alonzo 01/31/22 14:12: Patient has a follow up appointment scheduled for Sunday, February 13, 2022 at 9:[address] Caro at general surgery. Clinic will call patient with appointment information. Original Note: senior electrical project manager had message to schedule a follow up appointment for patient with general surgery. senior electrical project manager sent patients information to the front office staff at general surgery. Patients information will be printed and reviewed. Clinic will call patient with appointment information.
== END 2022-01-30 00:30 | disposition home or self-care (01) ==
PROVIDERS: Emergency Medicine; Emergency Provider Nurse Practitioner Family
DX: K29.50 Unspecified chronic gastritis without bleeding (principal); F17.210 Nicotine dependence, cigarettes, uncomplicated
CPT/HCPCS: 74018; 80053; 83690; 85025; 96361; 96374; 96375; 99284; C9113; J2405; J2765

== ENCOUNTER → 2022-02-05 12:22 | Outpatient (BNVA) | payer MEDICARE, MEDICAID, SELFPAY | PROVIDERS: Visit Provider Surgery | DX: R10.13 Epigastric pain (principal); R11.2 Nausea with vomiting, unspecified | CPT/HCPCS: 99203 ==

== ENCOUNTER 2022-02-07 10:00 | Day surgery (SDC) | payer MEDICARE, MEDICAID, SELFPAY ==
[2022-02-06 11:46] VITALS: BMI 22.5
--- NOTE | 2022-02-07 10:22 | W.PM.OPSUD ---
Surgery/Procedure H&P Update DATE OF PROCEDURE: February 07, 2022 DATE H&P PERFORMED: 02/05/22 PREOP DIAGNOSIS: Epigastric pain PLANNED PROCEDURE: Operation Date: 02/07/22 11:00 Proposed Procedures p EGD 32304(Not Applicable) - Juan José Caro DO
[2022-02-07 10:35] VITALS: BP 142/98; PULSE 96; RESP 18; TEMP 36.4; O2SAT 94
[2022-02-07] MEDS: sodium chloride 0.9% 1,000 ML 30 ML IV (10:48)
--- NOTE | 2022-02-07 11:12 | ANES.PREANE2 ---
Pre-Anesthetic Assessment Height/Weight: Height 1.78 m Weight 71.214 kg Temp Pulse Resp BP Pulse Ox O2 Del Method 97.5 F L 96 18 142/98 94 02/07/22 10:35 02/07/22 10:35 02/07/22 10:35 02/07/22 10:35 02/07/22 10:35 02/07/22 10:35 Preop Diagnosis: Epigastric pain Operation Date: 02/07/22 11:00 Proposed Procedures p EGD 28463(Not Applicable) - Juan José Caro, DO Was Beta Morgan taken within 24 hours: N/A Was Clonidine taken within 24 hours: N/A Last intake: Intake Last Liquid Date 02/06/22 Last Liquid Time 21:00 Last Solid Date 02/06/22 Last Solid Time 21:00 Social Alcohol and Tobacco Meth/opiod addiction. States he is not currently using Exam alert, oriented x 3, clear to auscultation bilaterally and regular rate & rhythm Airway Submandibular: within normal limits Cervical ROM: within normal limits Mallampati: Class II Comments: Comments: Poor dentition History/ROS No significant history except as noted and No significant complaints Pulmonary Cough CV/HEM None reported None reported Hepatic Hepatitis GI Gastroesophageal Reflux Disease Metabolic None reported Musc/skel Lower Back Pain Neuropsych Anxiety Anesthetic Plan ASA status: 3 Anesthesia: Anesthesia Evaluation and MAC Risk of > 500 ml blood loss (7ml/kg in children): No Medications/Allergies Home Medications Medication Instructions Recorded Confirmed Last Taken Type albuterol sulfate 90 mcg/actuation 2 puff inhalation Q6H PRN 08/29/21 02/07/22 12/18/21 History aerosol inhaler Shortness Of Breath cyclobenzaprine 10 mg tablet 10 mg PO TID PRN muscle spasm #60 01/11/22 02/06/22 02/06/22 Rx tabs promethazine 25 mg tablet 25 mg PO Q6H PRN nausea and 01/15/22 02/07/22 02/07/22 Rx vomiting #20 tabs pantoprazole 40 mg tablet,delayed 40 mg PO BID #60 tabs 01/29/22 02/06/22 02/06/22 Rx release methadone 40 mg soluble tablet 60 mg PO DAILY 02/06/22 02/06/22 02/06/22 History metoclopramide HCl 10 mg tablet 10 mg PO QID 02/06/22 02/06/22 02/06/22 History Allergies Allergy/AdvReac Type Severity Reaction Status Date / Time No Known Allergies Allergy Verified 02/05/22 12:54 Current Medications Generic Name Dose Route Start Last Admin Trade Name Freq PRN Reason Stop Dose Admin Sodium Chloride 1,000 mls @ 30 mls/hr 02/07/22 10:15 02/07/22 10:48 Sodium Chloride 0.9% IV 02/08/22 10:14 30 mls/hr .Q24H GEORGINA Administration PFSH Anesthesia Medical History Chronic pain Lumbar stenosis with neurogenic claudication No pertinent family history Psychiatric care Social History Smoking and tobacco status: current every day smoker (half a pack ) cigarettes Packs smoked per day: 0.5 Years cigarettes smoked: 20 Quit status (tobacco): has tried quititng Number of times tried to quit tobacco: 6 Second hand smoke exposure: Yes Current gender identity: Female Data Anesthesia Cardiac Studies: No Data to Display
[2022-02-07 11:53] VITALS: BP 123/73; PULSE 69; RESP 18; TEMP 36.2; O2SAT 98
--- NOTE | 2022-02-07 12:07 | ANE.PACU2 ---
Inpatient post-anesthesia follow up: Airway intact: Yes Vital signs: Temperature 97.1 F Pulse Rate 69 Respiratory Rate 18 Blood Pressure 123/73 Pulse Oximetry 98 Oxygen Delivery Me thod Nasal Cannula Oxygen Flow Rate 3 Fraction of Inspir ed Oxygen Hydration adequate: Yes Nausea and vomiting: No Pain level: 1 Mental status: Baseline
[2022-02-07 12:10] VITALS: BP 125/81; PULSE 69; RESP 18; O2SAT 94
[2022-02-07 12:20] VITALS: BP 161/94; PULSE 78; RESP 18; O2SAT 98
== END 2022-02-07 12:28 | disposition home or self-care (01) ==
PROVIDERS: Visit Provider Surgery
PROC: 0DJ08ZZ Inspection of Upper Intestinal Tract, Via Natural or Artificial Opening Endoscopic (ICD-10-PCS; CPT 43235; principal; 2022-02-07 11:00)
DX: R10.13 Epigastric pain (principal); K29.50 Unspecified chronic gastritis without bleeding; B96.81 Helicobacter pylori [H. pylori] as the cause of diseases classified elsewhere; K21.9 Gastro-esophageal reflux disease without esophagitis; F41.9 Anxiety disorder, unspecified; F17.210 Nicotine dependence, cigarettes, uncomplicated
CPT/HCPCS: 43239; 88305; 88342; J2704; J7030

== ENCOUNTER 2022-03-31 09:11 | Emergency (ER) | payer MEDICARE, MEDICAID, SELFPAY ==
[2022-03-31 09:24] VITALS: BP 159/106; PULSE 127; RESP 24; TEMP 38.2; O2SAT 95; BMI 22.2
--- NOTE | 2022-03-31 12:12 | ED_ITS ---
HPI - URI/Sore Throat General: Chief Complaint: Fever Stated Complaint: fever; body aches/chills; cough Time Seen by Provider: 03/31/22 09:19 Source: patient Mode of arrival: ambulatory History of Present Illness: 36-year-old male presents emergency room with body aches fever chills for last 2 days. He has a history of asthma. Fever cough nonproductive. MD elicited complaint: fever and cough Onset (ago): day(s) (2) Consistency: constant Severity: mild Exacerbating factors: nothing Relieving factors: nothing Associated symptoms: Reports congestion, cough, nasal congestion and rhinorrhea; Deny abdominal pain, change in voice, chills, chest pain, diarrhea, epistaxis, ear or mastoid pain, fever(s), headache(s), myalgias, nausea, rash, short of breath, sinus pain, stiffness, sore throat or vomiting Treatments prior to arrival: none Review of Systems Const: Denies: fever(s) or chills ENMT: Reports: nasal congestion; Denies: throat pain, ear or mastoid pain, epistaxis or sinus pain Card: Denies: chest pain Resp: Denies: dyspnea, productive cough or non-productive cough GI: Denies: abdominal pain, nausea, vomiting or diarrhea : Denies: flank pain, dysuria, urinary frequency or urinary urgency Musc: Denies: neck pain or back pain Skin/Breast: Denies: rash or pruritus Neuro: Denies: headache(s) PFS ED PFSH: Medical History Chronic pain Lumbar stenosis with neurogenic claudication No pertinent family history Psychiatric care Social History Smoking and tobacco status: current every day smoker (half a pack ) cigarettes Packs smoked per day: 0.5 Years cigarettes smoked: 20 Quit status (tobacco): has tried quititng Number of times tried to quit tobacco: 6 Second hand smoke exposure: Yes Current gender identity: Female Physical Exam Const: COMMON NORMALS: no acute distress GENERAL APPEARANCE: cooperative and comfortable ORIENTATION/CONSCIOUSNESS: Yes awake, Yes oriented to person, Yes oriented to place and Yes oriented to time HENMT: COMMON NORMALS: normocephalic, atraumatic, hearing grossly normal bilaterally, external ears normal, EAC's normal, TM's normal bilaterally, Normal nasal mucous membranes and turbinates present, moist oral mucous membranes and oropharynx normal HEAD & SCALP: normocephalic and atraumatic NOSE: Normal nasal mucous membranes and turbinates present EXTERNAL EAR: Yes external ears normal EXTERNAL AUDITORY CANAL: EAC's normal TYMPANIC MEMBRANE: TM's normal bilaterally Eye: COMMON NORMALS: Equal, round and reactive pupils present, EOMs intact bilaterally, conjunctivae normal and no scleral icterus CONJUNCTIVA: Yes conjunctivae normal PUPIL: Yes Equal, round and reactive pupils present Neck/C-Spine: COMMON NORMALS: full ROM, no lymphadenopathy, supple and no JVD Lymph: LYMPHATIC: no lymphadenopathy noted and no lymphedema noted Resp: COMMON NORMALS: normal respiratory effort, No retractions, No use of accessory muscles and clear to auscultation bilaterally AUSCULTATION: clear to auscultation bilaterally Cardio: COMMON NORMALS: no JVD, regular rate, regular rhythm and No murmurs present (Cardio) RATE: regular rate RHYTHM: regular rhythm Extremity: COMMON NORMALS: normal to inspection, capillary refill normal, no clubbing, cyanosis or edema, no calf tenderness and no pedal edema Neuro: SENSORIUM/ORIENTATION: Yes oriented to person, Yes oriented to place and Yes oriented to time Skin: COMMON NORMALS: no rashes or lesions noted GENERAL SKIN EXAM: no rashes or lesions noted Course Vital Signs: Vital signs: Vital Signs Temperature 100.7 F H 03/31/22 09:24 Pulse Rate 127 H 03/31/22 09:24 Respiratory Rate 24 H 03/31/22 09:24 Blood Pressure 159/106 03/31/22 09:24 Pulse Oximetry 95 03/31/22 09:24 Oxygen Delivery Me thod 03/31/22 09:24 MDM - URI/Sore Throat Medical Decision Making Supportive cares prescription given for benzonatate. Noticed and notes that patient asked for albuterol inhaler from the nurse he had not mentioned it to me I will have the staff call him and call in an albuterol prescription. Medical Records I reviewed the patient's medical records. Lab Data I reviewed the patient's lab results. Discharge Plan Discharge Patient Disposition: Home Clinical Impression: Influenza Condition: Stable Prescriptions: New benzonatate 200 mg capsule 200 mg PO TID PRN (Reason: cough) Qty: 20 0RF No Action clarithromycin 500 mg tablet 500 mg PO BID 14 Days Qty: 28 0RF amoxicillin 500 mg tablet 1,000 mg PO BID 14 Days Qty: 56 0RF pantoprazole [Protonix] 40 mg tablet,delayed release (DR/EC) 40 mg PO BID 14 Days Qty: 28 0RF cyclobenzaprine 10 mg tablet 10 mg PO TID PRN (Reason: muscle spasm) Qty: 60 0RF pantoprazole 40 mg tablet,delayed release (DR/EC) 40 mg PO BID 42 Days Qty: 84 0RF albuterol sulfate 90 mcg/actuation HFA aerosol inhaler 2 puff inhalation Q6H PRN (Reason: Shortness Of Breath) promethazine 25 mg tablet 25 mg PO Q6H PRN (Reason: nausea and vomiting) Qty: 20 0RF methadone 40 mg Tablet,Soluble 60 mg PO DAILY metoclopramide HCl 10 mg tablet 10 mg PO QID Discharge Orders: Discharge ED (Routine); Ordered 03/31/22 Ordered By: Elver Napoles Discharge Diet: Usual diet Discharge Activity: Increase activity as tolerated Patient Instructions: Influenza (ED), Opioid Safety, Pain Management Activity Restrictions/Additional Instructions: You were seen today for flulike symptoms based on your symptoms and community prevalence you were treated for influenza. As we discussed since you have problems with your stomach we did not use the Tamiflu. Did give you benzonatate to use for cough and cold symptoms you can also use guaifenesin and Tylenol or ibuprofen. Follow-up with your primary care doctor if your symptoms worsen Coding Level of Care Code ED Directory Assistance Operator for Julito Brumfield
== END 2022-03-31 09:46 | disposition home or self-care (01) ==
PROVIDERS: Emergency Provider Family Medicine
DX: J11.1 Influenza due to unidentified influenza virus with other respiratory manifestations (principal); Z79.891 Long term (current) use of opiate analgesic; F17.210 Nicotine dependence, cigarettes, uncomplicated
CPT/HCPCS: 99283

== ENCOUNTER 2022-04-09 17:05 | Inpatient (IN) | payer MEDICARE, MEDICAID, SELFPAY ==
[2022-04-09 17:15] VITALS: BP 135/104; PULSE 122; RESP 20; TEMP 36.9; O2SAT 97
--- NOTE | 2022-04-09 18:13 | ED.C_ITS ---
HPI - Psych General: Chief Complaint: Psychiatric Symptoms Stated Complaint: Wants to 96 hour himselves Time Seen by Provider: 04/09/22 17:47 Source: patient Mode of arrival: ambulatory Limitations: no limitations History of Present Illness: 36-year-old male states that he has been having increasing suicidal thoughts. He states he was admitted a year ago he supposed be on meds he denies been on any meds. He states he has a plan of drinking himself to . He denies any worsening improving factors. Denies any attempts. Associated symptoms: Deny depression Review of Systems Const: Denies: fever(s), chills, body aches or change in appetite Eyes: Denies: blurry vision or eye discomfort ENMT: Denies: throat pain or dental pain Card: Denies: chest pain Resp: Denies: dyspnea GI: Denies: abdominal pain, nausea, vomiting or diarrhea : Denies: dysuria Musc: Denies: neck pain or back pain Skin/Breast: Denies: rash Neuro: Denies: headache(s) Psych: Denies: depression Carlos/Lymph: Denies: easy bruising All/Imm: Denies: urticaria PFSH ED PFSH: Medical History Chronic pain Lumbar stenosis with neurogenic claudication No pertinent family history Psychiatric care Social History Smoking and tobacco status: current every day smoker (half a pack ) cigarettes Packs smoked per day: 0.5 Years cigarettes smoked: 20 Quit status (tobacco): has tried quititng Number of times tried to quit tobacco: 6 Second hand smoke exposure: Yes Current gender identity: Female Physical Exam Const: COMMON NORMALS: no acute distress, patient oriented x3 and healthy appearing HENMT: COMMON NORMALS: normocephalic and atraumatic HEAD & SCALP: normocephalic and atraumatic Eye: COMMON NORMALS: Equal, round and reactive pupils present and EOMs intact bilaterally PUPIL: Yes Equal, round and reactive pupils present Neck/C-Spine: COMMON NORMALS: full ROM and supple Chest: COMMONS NORMALS: normal inspection of the chest and normal palpation of entire chest wall Resp: COMMON NORMALS: normal respiratory effort, No retractions, No use of accessory muscles and clear to auscultation bilaterally AUSCULTATION: clear to auscultation bilaterally Cardio: COMMON NORMALS: regular rate, regular rhythm and No murmurs present (Cardio) RATE: regular rate RHYTHM: regular rhythm GI: COMMON NORMALS: Normal to inspection, nondistended, normoactive bowel sounds present, Soft to palpation, non-tender and no masses PALPATION: Yes Soft to palpation Extremity: COMMON NORMALS: normal to inspection and full ROM Neuro: COMMON NORMALS: patient oriented x3, moves all extremities and no focal motor deficits Psych: COMMON NORMALS: mental status grossly normal, Normal thought process present and cooperative THOUGHT PROCESS: Normal thought process present THOUGHT CONTENT: Yes Suicidality present Skin: COMMON NORMALS: no rashes or lesions noted and no wounds GENERAL SKIN EXAM: no rashes or lesions noted Course Vital Signs: Vital signs: Vital Signs Temperature 98.5 F 04/09/22 17:15 Pulse Rate 122 H 04/09/22 17:15 Respiratory Rate 20 H 04/09/22 17:15 Blood Pressure 135/104 04/09/22 17:15 Pulse Oximetry 97 04/09/22 17:15 [facility] - Psych Medical Decision Making Patient presents here with suicidal ideation on alcohol intoxication patient placed under 96-hour hold and will admit. Patient is medically cleared is well- appearing here. Lab Data 04/09/22 18:32 04/09/22 18:32 Laboratory Results WBC 14.2 10^3/uL (4.0-10.0) H 04/09/22 18:32 RBC 5.53 10^6/uL (4.1-5.3) H 04/09/22 18:32 Hgb 16.4 g/dL (11.7-16.6) 04/09/22 18:32 Hct 48.2 % (42.0-52.0) 04/09/22 18:32 MCV 87.2 fl (80-94) 04/09/22 18:32 MCH 29.7 pg (28.0-34.0) 04/09/22 18:32 MCHC 34.0 g/dL (30.0-36.0) 04/09/22 18:32 RDW 13.5 % (12.1-15.1) 04/09/22 18:32 Plt Count 450 10^3/cmm (130-400) H 04/09/22 18:32 MPV 8.8 fL (7.4-10.4) 04/09/22 18:32 Neut % (Auto) 58.1 % 04/09/22 18:32 Lymph % (Auto) 34.5 % 04/09/22 18:32 Nuckolls % (Auto) 5.5 % 04/09/22 18:32 Eos % (Auto) 0.4 % 04/09/22 18: Baso % (Auto) 0.4 % 04/09/22 18:32 Neut # (Auto) 8.26 10^3/uL (1.8-7.7) H 04/09/22 18: Lymph # (Auto) 4.9 10^3/uL (0.8-4.8) H 04/09/22 18:32 Nuckolls # (Auto) 0.8 10^3/uL (0.2-0.9) 04/09/22 18: Eos # (Auto) 0.1 10^3/uL (0.0-0.8) 04/09/22 18: Baso # (Auto) 0.1 10^3/uL (0.0-0.1) 04/09/22 18: Nucleated RBC % (auto) 0 % 04/09/22: Nucleated RBCs # 0.0 /100WBC 04/09/22 18:32 Sodium 137 mmol/L (136-145) 04/09/22 18:32 Potassium 3.5 mmol/L (3.5-5.1) 04/09/22 18:32 Chloride 95 mmol/L (98-107) L 04/09/22 18:32 Carbon Dioxide 28 mmol/L (22-29) 04/09/22 18:32 Anion Gap 17.5 (5-19) 04/09/22 18:32 BUN 14 mg/dL (6-20) 04/09/22 18:32 Creatinine 0.7 mg/dL (0.7-1.2) 04/09/22 18:32 GFR Calculation 126.2 mL/min (90-130) 04/09/22 18:32 Glucose 82 mg/dL (65-115) 04/09/22 18:32 Calculated Osmolality 284 mOsm/kg (285-295) L 04/09/22 18:32 Calcium 9.2 mg/dL (8.5-10.5) 04/09/22 18:32 Total Bilirubin 0.2 mg/dL (0.15-1.2) 04/09/22 18:32 AST 17 U/L (0-40) 04/09/22 18:32 ALT 12 U/L (0-41) 04/09/22 18:32 Alkaline Phosphatase 95 U/L (40-130) 04/09/22 18:32 Total Protein 7.8 g/dL (6.6-8.7) 04/09/22 18:32 Albumin 4.4 g/dL (3.5-5.2) 04/09/22 18:32 Globulin 3.4 g/dL (1.3-4.6) 04/09/22 18:32 Salicylates < 0.3 mg/dL (3-10) L 04/09/22 18:32 Acetaminophen < 5.0 ug/mL (10-30) L 04/09/22 18:32 Ethyl Alcohol 136 mg/dL (0-10) H 04/09/22 18:32 Discharge Plan Discharge Patient Disposition: Admitted As Inpatient Clinical Impression: Suicidal ideation Condition: Stable Prescriptions: No Action pantoprazole [Protonix] 40 mg tablet,delayed release (DR/EC) 40 mg PO BID 14 Days Qty: 28 0RF cyclobenzaprine 10 mg tablet 10 mg PO TID PRN (Reason: muscle spasm) Qty: 60 0RF albuterol sulfate 90 mcg/actuation HFA aerosol inhaler 2 puff inhalation Q6H PRN (Reason: Shortness Of Breath) promethazine 25 mg tablet 25 mg PO Q6H PRN (Reason: nausea and vomiting) Qty: 20 0RF metoclopramide HCl 10 mg tablet 10 mg PO QID Coding Level of Care Code ED Extruder Operator Horizontal for Julito Brumfield
[2022-04-09 19:01] LABS: Basophils # 0.1 10^3/uL (0.0-0.1); Basophils % 0.4 %; Eosinophils # 0.1 10^3/uL (0.0-0.8); Eosinophils % 0.4 %; Hematocrit 48.2 % (42.0-52.0); Hemoglobin 16.4 g/dL (11.7-16.6); Lymphocytes # 4.9 10^3/uL (0.8-4.8); Lymphocytes % 34.5 %; Mean Corpuscular Hemoglobin 29.7 pg (28.0-34.0); Mean Corpuscular Volume 87.2 fl (80-94); Mean Platelet Volume 8.8 fL (7.4-10.4); Monocytes # 0.8 10^3/uL (0.2-0.9); Monocytes % 5.5 %; Neutrophils # 8.26 10^3/uL (1.8-7.7); Neutrophils % 58.1 %; Nucleated Red Blood Cells % 0 %; Platelet Count 450 10^3/cmm (130-400); Red Blood Count 5.53 10^6/uL (4.1-5.3); Red Cell Distribution Width 13.5 % (12.1-15.1); White Blood Count 14.2 10^3/uL (4.0-10.0)
[2022-04-09 19:29] LABS: Alanine Aminotransferase 12 U/L (0-41); Albumin Level 4.4 g/dL (3.5-5.2); Alcohol Level 136 mg/dL (0-10); Alkaline Phosphatase 95 U/L (40-130); Anion Gap 17.5 (5-19); Aspartate Amino Transferase 17 U/L (0-40); Blood Urea Nitrogen 14 mg/dL (6-20); Calcium 9.2 mg/dL (8.5-10.5); Carbon Dioxide 28 mmol/L (22-29); Chloride 95 mmol/L (98-107); Globulin 3.4 g/dL (1.3-4.6); Glomerular Filtration Rate 126.2 mL/min (90-130); Glucose 82 mg/dL (65-115); Osmolality Calculated 284 mOsm/kg (285-295); Potassium 3.5 mmol/L (3.5-5.1); Sodium 137 mmol/L (136-145); Total Bilirubin 0.2 mg/dL (0.15-1.2); Total Protein 7.8 g/dL (6.6-8.7)
[2022-04-09 19:30] LABS: Acetaminophen < 5.0 ug/mL (10-30); Salicylate < 0.3 mg/dL (3-10)
[2022-04-09 20:58] VITALS: BP 118/82; PULSE 126; RESP 16; TEMP 37.1; O2SAT 96
[2022-04-09 21:07] VITALS: BP 118/82; PULSE 126; RESP 16; O2SAT 96
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
[2022-04-09 22:00] VITALS: BP 121/71; PULSE 126; RESP 18; TEMP 37; O2SAT 95
[2022-04-09 22:23] VITALS: BMI 22.3
[2022-04-09] MEDS: hyDROXYzine 25 mg Capsule 50 MG PO (22:43)
[2022-04-09] MEDS: trazodone 50 mg Tablet PO (22:43)
[2022-04-09 23:20] LABS: Amorphous Sediment Urine TRACE /hpf; Bilirubin Urine Neg (Negative); Blood Urine Neg (Negative); Glucose Urine UA Norm (Normal); Ketones Urine 1+ (Negative); Leukocyte Esterase Urine Negative (Negative); Mucus Urine TRACE /hpf; Nitrate Urine Negative (Negative); Protein Urine Trace (Negative); Specific Gravity, Urine 1.025 (1.005-1.030); Squamous Epithelial Cell Urine 0-4 /hpf (0-5); Urine Appearance Clear (CLEAR); Urine Color Yellow (Yellow); Urobilinogen Urine Norm (Negative); pH Urine 5 (5-7)
[2022-04-09 23:21] LABS: Add Urine Culture? No; Hyaline Casts Urine 0-4 /lpf
[2022-04-09 23:26] LABS: Amphetamines Screen Urine Negative (Negative); Barbiturates Screen Urine Negative (Negative); Benzodiazepines Screen Urine Negative (Negative); Cocaine Screen Urine Negative (Negative); Opiate Screen Urine Negative (Negative); PCP Screen Urine Negative (Negative); THC Screen Urine Positive (Negative)
[2022-04-10 06:00] VITALS: BP 144/89; PULSE 90; RESP 18; TEMP 36.6; O2SAT 97
[2022-04-10] MEDS: hyDROXYzine 25 mg Capsule 50 MG PO (08:38)
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
[2022-04-10 14:00] VITALS: BP 143/95; PULSE 99; RESP 20; TEMP 36.6; O2SAT 93
[2022-04-10] MEDS: nicotine 2 mg Gum BUCCAL (14:03)
[2022-04-10 20:05] VITALS: BP 138/91; PULSE 105; RESP 18; TEMP 36.5; O2SAT 97
[2022-04-11] MEDS: acetaminophen 325 mg Tablet 650 MG PO (02:37)
[2022-04-11 06:00] VITALS: BP 147/92; PULSE 104; RESP 18; TEMP 36.7; O2SAT 99
[2022-04-11] MEDS: escitalopram 10 mg Tablet PO (11:31)
[2022-04-11] MEDS: OLANZapine 5 mg ODT PO (11:31)
--- NOTE | 2022-04-11 11:52 | W.PM.NPUPNS ---
Subjective NPU Subjective: Patient presented today reporting that he is doing okay. Reports able to read his medications though he had not been fully compliant. We discussed restarting his previous medications but starting the Zoloft at 50 mg p.o. every morning. After discussion of the risks, benefits and alternatives he understood and agreed to proceed as is documented in this note. Mental Status Exam MSE Comments: This is a well-nourished, well-developed white male in hospital scrubs with limited grooming but adequate eye contact. No abnormal movements except for mild psychomotor retardation. Cooperative exam in mild distress. Speech was normal rate decreased volume. Mood described as depressed, affect congruent. Thought process organized. Thought content: Patient endorsed suicidal thoughts but denied homicidal ideation, there are no delusions reported or noted, he denied any auditory or visual hallucinations. Attention and concentration were intact and memory appeared reliable but none were formally tested. He is alert and oriented x3. Insight and judgment are fair but impulse control is limited. Vitals/I&O/Wt Last Vital Signs Temp 98.0 F 04/11/22 06:00 Pulse 104 H 04/11/22 06:00 Resp 18 04/11/22 06:00 BP 147/92 04/11/22 06:00 Pulse Ox 99 04/11/22 06:00 O2 Del Method 04/10/22 06:00 Weight last 48 hrs Weight 70.579 kg Weight 70.579 kg Weight 68.039 kg Data NPU 04/09/22 18:32 04/09/22 18:32 A&P Assessment and plan (1) Suicidal ideation: (2) Chronic post-traumatic stress disorder: (3) Major depressive disorder, recurrent severe without psychotic features: (4) Generalized anxiety disorder: (5) Nicotine dependence, unspecified, uncomplicated: (6) Methamphetamine use disorder, severe, in sustained remission: (7) Cannabis use disorder, severe, dependence: (8) Opioid use disorder, severe, in sustained remission: Plan This is a 36-year-old white male with a long history of depression, addiction and mental health issues who presents reporting significant depression secondary to being Away from his children. 1. Continue current medications. Restart Zoloft 50 mg p.o. every morning as well as Risperdal and Seroquel. 2. Continue every 15 minute checks for safety. 3. Encourage individual, group and milieu therapies. 4. Encourage sober living treatment after discharge at the hospital care to which he is willing to commit. Involuntary Hold Information 96 Hour Hold: 96 Hour Involuntary Admission: Yes 96 Hour Hold Ending Date: 04/13/22 96 Hour Hold Ending Time: 18:20 Attestations NPU Medical Necessity Statement*: Inpatient hospitalization is medically necessary and the clinically appropriate intervention at this time. We will initiate medications and make changes as indicated. Likely length of stay 2-4 days. Coding Level of Care Code Acute Licensed Practical Nurse Clinic Nurse for [facility] Diagnoses Suicidal ideation R45.851 Chronic post-traumatic stress disorder F43.12 Major depressive disorder, recurrent severe without psychotic features F33.2 Generalized anxiety disorder F41.1 Nicotine dependence, unspecified, uncomplicated F17.200 Methamphetamine use disorder, severe, in sustained remission F15.21 Cannabis use disorder, severe, dependence F12.20 Opioid use disorder, severe, in sustained remission F11.21
[2022-04-11 14:00] VITALS: RESP 17
[2022-04-11] MEDS: risperiDONE 1 mg Tablet PO (14:40)
[2022-04-11] MEDS: sertraline 50 mg Tablet PO (14:40)
[2022-04-11] MEDS: nicotine 2 mg Gum BUCCAL (15:42)
[2022-04-11 16:28] VITALS: PULSE 104; RESP 18; O2SAT 98
[2022-04-11] MEDS: albuterol 2.5 mg/3 mL Neb INHALATION (16:28)
[2022-04-11] MEDS: trazodone 50 mg Tablet PO (19:54)
[2022-04-11] MEDS: quetiapine 100 mg Tablet PO (19:55)
[2022-04-11 20:30] VITALS: RESP 16
[2022-04-12 06:00] VITALS: BP 135/79; PULSE 77; RESP 18; TEMP 36.7; O2SAT 95
[2022-04-12] MEDS: quetiapine 100 mg Tablet PO ×2 (09:25→21:26)
[2022-04-12] MEDS: risperiDONE 1 mg Tablet PO (09:25)
[2022-04-12] MEDS: sertraline 50 mg Tablet PO (09:25)
[2022-04-12] MEDS: acetaminophen 325 mg Tablet 650 MG PO (10:04)
[2022-04-12 14:00] VITALS: BP 129/87; PULSE 98; RESP 20; TEMP 36.7; O2SAT 96
[2022-04-12 15:00] VITALS: PULSE 110; RESP 18; O2SAT 97
[2022-04-12] MEDS: pantoprazole DR 40 mg Tablet PO (17:59)
--- NOTE | 2022-04-12 18:00 | P.NPUPN_ITS ---
Subjective NPU Subjective: Patient attended today reporting that he talked with his significant other and her mother/his [id number] and reportedly he is able to go back if he abstains from drinking and if he goes to outpatient program like [facility]. We discussed commitment to treatment team in the morning to make sure he has the paperwork filled out and we discussed a plan for discharge in the morning after he has a follow-up. He was agreeable to this plan. Mental Status Exam MSE Comments: This is a well-nourished, well-developed white male in hospital scrubs with limited grooming but adequate eye contact. No abnormal movements except for mild psychomotor retardation. Cooperative exam in mild distress. Sp eech was normal rate decreased volume. Mood described as better, affect congruent. Thought process organized. Thought content: Patient denies suicidal or homicidal ideation, there are no delusions reported or noted, he denied any auditory or visual hallucinations. Attention and concentration were intact and memory appeared reliable but none were formally tested. He is alert and oriented x3. Insight and judgment are fair but impulse control is limited, but improving. Vitals/I&O/Wt Last Vital Signs Temp 97.9 F 04/12/22 20:46 Pulse 98 04/12/22 20:46 Resp 18 04/12/22 20:46 BP 132/84 04/12/22 20:46 Pulse Ox 96 04/12/22 20:46 O2 Del Method 04/12/22 20:46 Data NPU 04/09/22 18:32 04/09/22 18:32 A&P Assessment and plan (1) Suicidal ideation: (2) Chronic post-traumatic stress disorder: (3) Major depressive disorder, recurrent severe without psychotic features: (4) Generalized anxiety disorder: (5) Nicotine dependence, unspecified, uncomplicated: (6) Methamphetamine use disorder, severe, in sustained remission: (7) Cannabis use disorder, severe, dependence: (8) Opioid use disorder, severe, in sustained remission: Plan This is a 36-year-old white male with a long history of depression, addiction and mental health issues who presents reporting significant depression secondary to being Away from his children. 1. Continue current medications. Restart Zoloft 50 mg p.o. every morning as well as Risperdal and Seroquel. 2. Continue every 15 minute checks for safety. 3. Encourage individual, group and milieu therapies. 4. Encourage sober living treatment after discharge at the hospital care to [facility] he is willing to commit. We work with treatment team to get a [facility] application prior to discharge tomorrow. Involuntary Hold Information 96 Hour Hold: 96 Hour Involuntary Admission: Yes 96 Hour Hold Ending Date: 04/13/22 96 Hour Hold Ending Time: 18:20 Attestations NPU Medical Necessity Statement*: Inpatient hospitalization is medically necessary and the clinically appropriate intervention at this time. We will initiate medications and make changes as indicated. Likely length of stay 1-3 days. Coding Level of Care Code Acute Derrick Hand for [facility] Fwd Diagnoses Suicidal ideation R45.851 Chronic post-traumatic stress disorder F43.12 Major depressive disorder, recurrent severe without psychotic features F33.2 Generalized anxiety disorder F41.1 Nicotine dependence, unspecified, uncomplicated F17.200 Methamphetamine use disorder, severe, in sustained remission F15.21 Cannabis use disorder, severe, dependence F12.20 Opioid use disorder, severe, in sustained remission F11.21
[2022-04-12 20:46] VITALS: BP 132/84; PULSE 98; RESP 18; TEMP 36.6; O2SAT 96
[2022-04-12] MEDS: OLANZapine 5 mg ODT PO (21:25)
[2022-04-12] MEDS: haloperidol 5 mg Tablet PO (21:25)
[2022-04-13 06:00] VITALS: RESP 17
[2022-04-13] MEDS: risperiDONE 1 mg Tablet PO (09:12)
[2022-04-13] MEDS: quetiapine 100 mg Tablet PO (09:12)
[2022-04-13] MEDS: sertraline 50 mg Tablet PO (09:13)
[2022-04-13] MEDS: pantoprazole DR 40 mg Tablet PO (09:13)
[2022-04-13 09:42] VITALS: PULSE 100; RESP 18; O2SAT 98
[2022-04-13] MEDS: albuterol 2.5 mg/3 mL Neb INHALATION (09:42)
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
[2022-04-13 11:27] VITALS: PULSE 100; RESP 18; O2SAT 98
--- NOTE | 2022-04-13 12:02 | DCPLANNER ---
Imm was printed and given to pt and explained rights. A copy was put in pts chart.
== END 2022-04-13 12:29 | disposition home or self-care (01) | DRG 885 ==
LOC: ER 19:38 → NP 19:52
PROVIDERS: Admitting Provider Psychiatry & Neurology Psychiatry; Emergency Provider Emergency Medicine; Visit Provider Psychiatry & Neurology Psychiatry
DX: F33.2 Major depressive disorder, recurrent severe without psychotic features (principal); R45.851 Suicidal ideations; F43.12 Post-traumatic stress disorder, chronic; F41.1 Generalized anxiety disorder; F17.210 Nicotine dependence, cigarettes, uncomplicated; F15.21 Other stimulant dependence, in remission; F12.20 Cannabis dependence, uncomplicated; F11.21 Opioid dependence, in remission; F10.929 Alcohol use, unspecified with intoxication, unspecified; Y90.9 Presence of alcohol in blood, level not specified; G89.29 Other chronic pain; M48.062 Spinal stenosis, lumbar region with neurogenic claudication
CPT/HCPCS: 36415; 80053; 80306; 80307; 81001; 85025; 87070; 90471; 90686; 94640; 97150; 97165; 99285; J7613

== ENCOUNTER → 2022-04-18 16:53 | Outpatient (BNVA) | payer MEDICARE, MEDICAID, SELFPAY | PROVIDERS: PCP Family Medicine; Visit Provider Family Medicine | DX: M48.062 Spinal stenosis, lumbar region with neurogenic claudication (principal); J45.909 Unspecified asthma, uncomplicated; Z11.4 Encounter for screening for human immunodeficiency virus [HIV]; Z72.51 High risk heterosexual behavior; M51.26 Other intervertebral disc displacement, lumbar region; F41.1 Generalized anxiety disorder; F33.2 Major depressive disorder, recurrent severe without psychotic features; F17.200 Nicotine dependence, unspecified, uncomplicated; Z71.6 Tobacco abuse counseling | CPT/HCPCS: 87806 ==

== ENCOUNTER 2022-04-27 17:08 | Inpatient (IN) | payer MEDICARE, MEDICAID, SELFPAY ==
[2022-04-27 17:16] VITALS: BP 123/81; PULSE 90; RESP 18; O2SAT 96; BMI 23.6
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
[2022-04-27 18:32] LABS: Basophils % 0.6 %; Eosinophils % 0.4 %; Hematocrit 47.1 % (42.0-52.0); Hemoglobin 15.7 g/dL (11.7-16.6); Lymphocytes # 3.1 10^3/uL (0.8-4.8); Lymphocytes % 43.7 %; Mean Corpuscular HGB Conc 33.3 g/dL (30.0-36.0); Mean Corpuscular Hemoglobin 29.6 pg (28.0-34.0); Mean Corpuscular Volume 88.7 fl (80-94); Mean Platelet Volume 9.3 fL (7.4-10.4); Monocytes # 0.3 10^3/uL (0.2-0.9); Monocytes % 4.8 %; Neutrophils # 3.54 10^3/uL (1.8-7.7); Neutrophils % 49.8 %; Nucleated Red Blood Cells % 0 %; Platelet Count 276 10^3/cmm (130-400); Red Blood Count 5.31 10^6/uL (4.1-5.3); Red Cell Distribution Width 13.8 % (12.1-15.1); White Blood Count 7.1 10^3/uL (4.0-10.0)
[2022-04-27 19:01] LABS: Acetaminophen < 5.0 ug/mL (10-30); Alanine Aminotransferase 15 U/L (0-41); Albumin Level 4.4 g/dL (3.5-5.2); Alcohol Level 106 mg/dL (0-10); Alkaline Phosphatase 79 U/L (40-130); Aspartate Amino Transferase 20 U/L (0-40); Blood Urea Nitrogen 11 mg/dL (6-20); Calcium 9.2 mg/dL (8.5-10.5); Carbon Dioxide 29 mmol/L (22-29); Chloride 107 mmol/L (98-107); Globulin 2.6 g/dL (1.3-4.6); Glomerular Filtration Rate 126.2 mL/min (90-130); Glucose 94 mg/dL (65-115); Osmolality Calculated 303 mOsm/kg (285-295); Salicylate < 0.3 mg/dL (3-10); Sodium 147 mmol/L (136-145); Total Bilirubin 0.2 mg/dL (0.15-1.2)
[2022-04-27] MEDS: nicotine 14 mg Patch 1 PATCH TRANSDERMA (19:18)
[2022-04-27 19:24] LABS: Amphetamines Screen Urine Negative (Negative); Barbiturates Screen Urine Negative (Negative); Benzodiazepines Screen Urine Negative (Negative); Cocaine Screen Urine Negative (Negative); Opiate Screen Urine Negative (Negative); PCP Screen Urine Negative (Negative); THC Screen Urine Negative (Negative)
[2022-04-27 21:12] VITALS: BP 150/96; PULSE 98; RESP 18; TEMP 36.4; O2SAT 98
[2022-04-27 22:00] VITALS: BP 150/96; PULSE 98; RESP 18; TEMP 36.4
[2022-04-27] MEDS: nicotine 4 mg lozenge MUCOUS MEM (22:09)
[2022-04-28] MEDS: trazodone 50 mg Tablet PO (00:12)
[2022-04-28] MEDS: hyDROXYzine 25 mg Capsule 50 MG PO ×2 (00:12→12:16)
[2022-04-28 06:00] VITALS: RESP 16
[2022-04-28] MEDS: ibuprofen 600 mg Tablet PO (09:49)
[2022-04-28] MEDS: OLANZapine 5 mg ODT PO (12:16)
[2022-04-28] MEDS: haloperidol 5 mg Tablet PO (13:02)
[2022-04-28] MEDS: nicotine 4 mg lozenge MUCOUS MEM (13:02)
--- NOTE | 2022-04-28 13:04 | PC.NURSE ---
Administered 5mg haldol Po to pt experiencing severe anxiety and aggitation.
[2022-04-28 14:00] VITALS: BP 123/90; PULSE 122; RESP 18; TEMP 36.6; O2SAT 97
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
[2022-04-28 20:10] VITALS: RESP 17
[2022-04-29 06:00] VITALS: RESP 16
[2022-04-29] MEDS: ibuprofen 600 mg Tablet PO (08:21)
[2022-04-29] MEDS: nicotine 4 mg lozenge MUCOUS MEM (08:21)
[2022-04-29] MEDS: hyDROXYzine 25 mg Capsule 50 MG PO (08:22)
[2022-04-29] MEDS: OLANZapine 5 mg ODT PO ×2 (08:22→12:33)
--- NOTE | 2022-04-29 08:22 | PC.NURSE ---
PRN VISTARIL & ZYPREXA ZYDIS VISTARIL 50 MG GIVEN PO ALONG WITH ZYPREXA ZYDIS 5 MG PO SUBLINGUAL PER PT C/O INCREASED ANXIETY.
--- NOTE | 2022-04-29 10:36 | P.NPUPN_ITS ---
Subjective NPU Subjective: Patient presented today reporting that he is wanting to restart medications but not the ones he was on. We had a discussion about the time that he takes the medications to be effective but he continued to be resistant to the idea of medications he had in the past. We discussed risk-benefit and alternatives of a trial of Abilify 10 mg p.o. every morning and he understood agreed to proceed as is documented in this note. Mental Status Exam MSE Comments: This is a well-nourished, well-developed white male in hospital scrubs with limited grooming and eye contact. No abnormal movements except for mild psychomotor retardation. Cooperative with exam in mild distress. Speech was normal rate decreased volume. Mood described as anxious, affect congruent. Thought process organized. Thought content: Patient endorsed suicidal thoughts but denied homicidal ideation, there are no delusions reported or noted, he denied any auditory or visual hallucinations. Attention and concentration were intact and memory appeared reliable but none were formally tested. He is alert and oriented x3. Insight, judgment and impulse control are limited. Vitals/I&O/Wt Last Vital Signs Temp 97.9 F 04/28/22 14:00 Pulse 122 H 04/28/22 14:00 Resp 16 04/29/22 06:00 BP 123/90 04/28/22 14:00 Pulse Ox 97 04/28/22 14:00 O2 Del Method 04/28/22 14:00 Weight last 48 hrs Weight 74.843 kg Weight 74.843 kg Data NPU 04/27/22 18:21 04/27/22 18:21 A&P Assessment and plan (1) Suicidal ideation: (2) Chronic post-traumatic stress disorder: (3) Major depressive disorder, recurrent severe without psychotic features: (4) Generalized anxiety disorder: (5) Nicotine dependence, unspecified, uncomplicated: (6) Methamphetamine use disorder, severe, in sustained remission: (7) Cannabis use disorder, severe, dependence: (8) Opioid use disorder, severe, in sustained remission: Plan This is a 36-year-old white male with a long history of depression, addiction and mental health issues who presents reporting continued significant psychosocial stressors due to multiple family concerns but downplayed continued addiction. 1. Continue current medications. Start Abilify 10 mg p.o. every morning. 2. Continue every 15 minute checks for safety. 3. Encourage individual, group and milieu therapies. 4. Encourage sober living treatment after discharge at the hospital care to which he is willing to commit. Now reporting openness to inpatient services. 5. Some concerns exist for malingering. Involuntary Hold Information 96 Hour Hold: 96 Hour Involuntary Admission: No 96 Hour Hold Ending Date: 04/13/22 96 Hour Hold Ending Time: 18:20 Attestations NPU Medical Necessity Statement*: Inpatient hospitalization is medically necessary and the clinically appropriate intervention at this time. We will initiate medications and make changes as indicated. Likely length of stay 3-5 days. 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
--- NOTE | 2022-04-29 12:33 | PC.NURSE ---
PRN ZYPREXA ZYDIS 5 MG GIVEN PO SUBLINGUAL PER PT C/O STATED ANXIETY
[2022-04-29 14:00] VITALS: BP 109/70; PULSE 90; RESP 16; TEMP 36.6; O2SAT 96
--- NOTE | 2022-04-29 14:36 | PC.NURSE ---
MED SEEKING ASKING FOR ANY AND ALL PRN MEDICATIONS HE CAN HAVE, IN DAYROOM WATCHING TV CURRENTLY. SPOKE TO DR. WEISS, VERBAL ORDER GIVEN TO START ABILIFY 10 MG PO DAILY, FIRST DOSE NOW
[2022-04-29] MEDS: ARIPiprazole 10 mg Tablet PO (14:54)
[2022-04-29 19:55] VITALS: BP 144/90; PULSE 115; RESP 16; O2SAT 95
[2022-04-29] MEDS: quetiapine 100 mg Tablet PO (19:55)
[2022-04-29] MEDS: gabapentin 300 mg Capsule PO (19:56)
[2022-04-30 06:00] VITALS: BP 136/80; PULSE 158; RESP 18; TEMP 36.4; O2SAT 94
[2022-04-30] MEDS: quetiapine 100 mg Tablet PO ×2 (08:26→18:55)
[2022-04-30] MEDS: ARIPiprazole 10 mg Tablet PO (08:26)
[2022-04-30] MEDS: gabapentin 300 mg Capsule PO ×2 (08:26→18:55)
[2022-04-30] MEDS: pantoprazole DR 40 mg Tablet PO (08:27)
[2022-04-30] MEDS: hyDROXYzine 25 mg Capsule 50 MG PO (09:57)
--- NOTE | 2022-04-30 11:18 | P.NPUPN_ITS ---
Subjective NPU Subjective: Patient presented today reporting that he is not having side effects with the Abilify. We had a discussion about restarting an antidepressant. He also talked anout getting into therapy and even couples therapy with his . We discussed the risks, benefits and alternatives of a trial of Prozac 20 mg p.o. every morning and he understood agreed to proceed as is documented in this note. Mental Status Exam MSE Comments: This is a well-nourished, well-developed white male in hospital scrubs with limited grooming and eye contact. No abnormal movements except for mild psychomotor retardation. Cooperative with exam in mild distress. Speech was normal rate decreased volume. Mood described as a little better, affect congruent. Thought process organized. Thought content: Patient endorsed jb cidal thoughts but denied homicidal ideation, there are no delusions reported or noted, he denied any auditory or visual hallucinations. Attention and concentration were intact and memory appeared reliable but none were formally tested. He is alert and oriented x3. Insight, judgment and impulse control are limited. Vitals/I&O/Wt Last Vital Signs Temp 97.8 F 04/29/22 14:00 Pulse 115 H 04/29/22 19:55 Resp 16 04/29/22 19:55 BP 144/90 04/29/22 19:55 Pulse Ox 95 04/29/22 19:55 O2 Del Method 04/29/22 14:00 Weight last 48 hrs Weight 74.843 kg Data NPU 04/27/22 18:21 04/27/22 18:21 A&P Assessment and plan (1) Suicidal ideation: (2) Chronic post-traumatic stress disorder: (3) Major depressive disorder, recurrent severe without psychotic features: (4) Generalized anxiety disorder: (5) Nicotine dependence, unspecified, uncomplicated: (6) Methamphetamine use disorder, severe, in sustained remission: (7) Cannabis use disorder, severe, dependence: (8) Opioid use disorder, severe, in sustained remission: Plan This is a 36-year-old white male with a long history of depression, addiction and mental health issues who presents reporting continued significant psychosocial stressors due to multiple family concerns but downplayed continued addiction. 1. Continue current medications. Started Abilify 10 mg p.o. every morning. Start Prozac 20 mg po qam. 2. Continue every 15 minute checks for safety. 3. Encourage individual, group and milieu therapies. 4. Encourage sober living treatment after discharge at the hospital care to which he is willing to commit. Now reporting openness to inpatient services. 5. Some concerns exist for malingering. Involuntary Hold Information 96 Hour Hold: 96 Hour Involuntary Admission: No 96 Hour Hold Ending Date: 04/13/22 96 Hour Hold Ending Time: 18:20 Attestations NPU Medical Necessity Statement*: Inpatient hospitalization is medically necessary and the clinically appropriate intervention at this time. We will initiate medications and make changes as indicated. Likely length of stay 2-4 days. Coding Level of Care Code Acute Clarifier for [facility] Fwd Diagnoses Suicidal ideation R45.851 Chronic post-traumatic stress disorder F43.12 Major depressive disorder, recurrent severe without psychotic features F33.2 Generalized anxiety disorder F41.1 Nicotine dependence, unspecified, uncomplicated F17.200 Methamphetamine use disorder, severe, in sustained remission F15.21 Cannabis use disorder, severe, dependence F12.20 Opioid use disorder, severe, in sustained remission F11.21
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
[2022-04-30 14:00] VITALS: BP 139/90; PULSE 118; RESP 19; TEMP 36.6; O2SAT 97
[2022-04-30] MEDS: fluoxetine 20 mg Capsule PO (18:55)
[2022-04-30 20:09] VITALS: BP 149/102; PULSE 106; RESP 18; TEMP 36.3; O2SAT 97
[2022-05-01 06:00] VITALS: RESP 18
[2022-05-01] MEDS: gabapentin 300 mg Capsule PO ×2 (08:40→19:36)
[2022-05-01] MEDS: quetiapine 100 mg Tablet PO ×2 (08:40→19:36)
[2022-05-01] MEDS: pantoprazole DR 40 mg Tablet PO (08:40)
[2022-05-01] MEDS: fluoxetine 20 mg Capsule PO (08:40)
[2022-05-01] MEDS: ARIPiprazole 10 mg Tablet PO (08:40)
[2022-05-01] MEDS: hyDROXYzine 25 mg Capsule 50 MG PO (11:31)
[2022-05-01] MEDS: ibuprofen 600 mg Tablet PO (11:52)
[2022-05-01 14:00] VITALS: BP 138/86; PULSE 110; RESP 18; TEMP 36.3; O2SAT 93
--- NOTE | 2022-05-01 14:18 | PC.NURSE ---
Pt came to nurses station asking to have his pharmacy changed to [facility] in [place]. Said it will work better for his as they are near each other and [facility] is where his insurance wants him to go.
[2022-05-01] MEDS: OLANZapine 5 mg ODT PO (16:19)
--- NOTE | 2022-05-01 18:22 | W.PM.NPUPNS ---
Subjective NPU Subjective: .Patient is a 36-year-old white male with a history of borderline personality disorder admitted with homicidal ideation and alcohol abuse. He reported no side effects from Abilify. He had minimized any potential legal issues currently but had eventually revealed that he had reported having worsening depression in the care of legal system. He reported continued depressed mood and reported some feelings of hopelessness. He had acknowledged having minimal compliance to his medications prior to coming into the hospital here. He reported no sleep disturbance at this time. He had acknowledged a history of PTSD symptoms that remained including hypervigilance agitation avoidance of places that would find him of his trauma along with depression. Mental Status Exam MSE Comments: This is a well-nourished, well-developed white male in hospital scrubs with limited grooming and eye contact. No abnormal movements except for mild psychomotor retardation. Cooperative with exam in mild distress. Speech was normal rate decreased volume. Mood described as okay. His affect was restricted in range. Thought process was linear and organized. Thought content: Patient endorsed suicidal thoughts but denied homicidal ideation, there are no delusions reported or noted, he denied any auditory or visual hallucinations. Attention and concentration were intact and memory appeared reliable but none were formally tested. He is alert and oriented x3. Insight, judgment and impulse control are limited. Vitals/I&O/Wt Last Vital Signs Temp 97.4 F L 05/01/22 14:00 Pulse 110 H 05/01/22 14:00 Resp 18 05/01/22 14:00 BP 138/86 05/01/22 14:00 Pulse Ox 93 05/01/22 14:00 O2 Del Method 04/29/22 14:00 Data NPU 04/27/22 18:21 04/27/22 18:21 A&P Assessment and plan (1) Suicidal ideation: (2) Chronic post-traumatic stress disorder: (3) Major depressive disorder, recurrent severe without psychotic features: (4) Generalized anxiety disorder: (5) Nicotine dependence, unspecified, uncomplicated: (6) Methamphetamine use disorder, severe, in sustained remission: (7) Cannabis use disorder, severe, dependence: (8) Opioid use disorder, severe, in sustained remission: Plan This is a 36-year-old white male with a long Continue Abilify 10 mg p.o. every morning. Continue Prozac 20 mg po qam. 2. Continue every 15 minute checks for safety. 3. Encourage individual, group and milieu therapies. 4. Encourage sober living treatment after discharge at the hospital care to which he is willing to commit. Now reporting openness to inpatient services. 5. Some concerns exist for malingering. Involuntary Hold Information 96 Hour Hold: 96 Hour Involuntary Admission: No 96 Hour Hold Ending Date: 04/13/22 96 Hour Hold Ending Time: 18:20 Attestations NPU Medical Necessity Statement*: Inpatient hospitalization is medically necessary and the clinically appropriate intervention at this time. We will initiate medications and make changes as indicated. Likely length of stay 2-4 days. 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
[2022-05-01 20:24] VITALS: BP 114/66; PULSE 86; RESP 16; TEMP 36.5; O2SAT 95
[2022-05-02 06:00] VITALS: RESP 18
[2022-05-02] MEDS: acetaminophen 325 mg Tablet 650 MG PO (07:58)
[2022-05-02] MEDS: hyDROXYzine 25 mg Capsule 50 MG PO (07:58)
[2022-05-02] MEDS: pantoprazole DR 40 mg Tablet PO (08:33)
[2022-05-02] MEDS: fluoxetine 20 mg Capsule PO (08:34)
[2022-05-02] MEDS: ARIPiprazole 10 mg Tablet PO (08:34)
[2022-05-02] MEDS: quetiapine 100 mg Tablet PO (08:34)
[2022-05-02] MEDS: gabapentin 300 mg Capsule PO (08:34)
[2022-05-02] MEDS: OLANZapine 5 mg ODT PO (10:55)
[2022-05-02 12:31] VITALS: BP 140/89; PULSE 110; RESP 18; TEMP 36.7; O2SAT 95
[2022-05-02 12:35] VITALS: BP 140/89; PULSE 110; RESP 18; TEMP 36.6; O2SAT 95
--- NOTE | 2022-05-02 13:02 | PC.NURSE ---
Discharge information reviewed with pt and he verbalized his understanding. Pt said he felt ready to leave. Denied SI/HI. Pt aware [facility] will only be providing him three prescriptions as he has recently filled three other. He knows he needs to contact his for the other medications. A list was provided to him. The pt brought in seroquel and pantoprazole which will be returned to him upon discharge. Pt awaiting his ride.
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
--- NOTE | 2022-05-02 13:34 | DCPLANNER ---
Pt was given IMM and rights explained an copy put in chart.
--- NOTE | 2022-05-02 14:17 | PC.NURSE ---
At approximately 2 pm the unit received a call from a class a regional drivers saying she had been waiting for this patient for almost 40 minutes and was wondering when he was going to be coming down for his ride. After clarifying with staff, the class a regional drivers was informed the patient had already left the facility. Per the staff the unit received a call earlier saying the pt's ride was here. The pt was readied and he left the building at 1328. Scientific Recruiter, and Dockmaster notified. Scientific Recruiter was able to reach [facility] by phone and they said the pt arrived and they were checking him in.
== END 2022-05-02 13:28 | disposition home or self-care (01) | DRG 885 ==
LOC: ER 18:13 → NP 18:34
PROVIDERS: Admitting Provider Psychiatry & Neurology Psychiatry; Emergency Provider Emergency Medicine; PCP Family Medicine; Visit Provider Psychiatry & Neurology Psychiatry
DX: F33.2 Major depressive disorder, recurrent severe without psychotic features (principal); R45.851 Suicidal ideations; F43.12 Post-traumatic stress disorder, chronic; F41.1 Generalized anxiety disorder; R45.850 Homicidal ideations; F10.10 Alcohol abuse, uncomplicated; Y90.5 Blood alcohol level of 100-119 mg/100 ml; F12.20 Cannabis dependence, uncomplicated; F17.210 Nicotine dependence, cigarettes, uncomplicated; F15.21 Other stimulant dependence, in remission; F11.21 Opioid dependence, in remission; Z65.3 Problems related to other legal circumstances; Z91.52 Personal history of nonsuicidal self-harm; Z62.810 Personal history of physical and sexual abuse in childhood; Z63.9 Problem related to primary support group, unspecified; Z79.899 Other long term (current) drug therapy
CPT/HCPCS: 36415; 80053; 80306; 80307; 84443; 85025; 97150; 97165; 99285

== ENCOUNTER → 2022-05-10 15:58 | Outpatient (BNVA) | payer MEDICARE, MEDICAID, SELFPAY | PROVIDERS: PCP Family Medicine; Visit Provider Family Medicine | DX: Z09 Encounter for follow-up examination after completed treatment for conditions other than malignant neoplasm (principal); Z11.59 Encounter for screening for other viral diseases; Z91.89 Other specified personal risk factors, not elsewhere classified; F33.2 Major depressive disorder, recurrent severe without psychotic features; F41.1 Generalized anxiety disorder; F17.200 Nicotine dependence, unspecified, uncomplicated | CPT/HCPCS: 80053; 86803; 87902 ==

== ENCOUNTER → 2022-05-11 19:17 | Outpatient (BNVA) | payer MEDICARE, MEDICAID, SELFPAY | PROVIDERS: PCP Family Medicine; Visit Provider Family Medicine | DX: Z09 Encounter for follow-up examination after completed treatment for conditions other than malignant neoplasm (principal); Z11.59 Encounter for screening for other viral diseases; Z91.89 Other specified personal risk factors, not elsewhere classified; F33.2 Major depressive disorder, recurrent severe without psychotic features; F41.1 Generalized anxiety disorder; F17.200 Nicotine dependence, unspecified, uncomplicated | CPT/HCPCS: 87522 ==

== ENCOUNTER 2022-05-26 11:51 | Emergency (ER) | payer MEDICARE, MEDICAID, SELFPAY ==
[2022-05-26 11:56] VITALS: BP 136/91; PULSE 101; RESP 18; TEMP 36.4; O2SAT 96
--- NOTE | 2022-05-26 12:02 | ECG_ITS ---
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 Measurements Intervals [place] Rate: 95 P: 66 MD: 126 QRS: 63 QRSD: 89 T: 29 QT: 326 QTc: 411 Interpretive Statements SINUS RHYTHM POSSIBLE LEFT ATRIAL ENLARGEMENT [-0.1mV P-WAVE IN V1/V2] NONSPECIFIC T-WAVE ABNORMALITY No previous ECG available for comparison Electronically Signed On 05-27-2022 8:49:31 [employer]ARMWORK[employer]ANBERRY by Lore Fowler M.D. [email or web address]
--- NOTE | 2022-05-26 12:20 | XRR_ITS ---
PROCEDURE INFORMATION: Exam: XR Chest Exam date and time: 05/26/2022 12:30 PM Age: 36 years old Clinical indication: Pain; Radiating; Additional info: Cp TECHNIQUE: Imaging protocol: Radiologic exam of the chest. Views: 1 view. COMPARISON: CR XR chest 1V portable [id number] 01/15/2022 11:17 AM FINDINGS: Lungs: Unremarkable. No consolidation. Pleural spaces: Unremarkable. No pleural effusion. No pneumothorax. Heart/Mediastinum: Unremarkable. No cardiomegaly. Bones/joints: Unremarkable. XR/XR chest 1V portable [id number] IMPRESSION: No acute findings.
--- NOTE | 2022-05-26 14:55 | ED_ITS ---
HPI - Chest Pain General: Chief Complaint: Chest Pain Stated Complaint: Chest Pain Time Seen by Provider: 05/26/22 14:55 History of Present Illness: Patient left prior to evaluation [facility] ED PFSH: Medical History Arthritis Chronic pain History of broken collarbone surgically repaired x2 Lumbar stenosis with neurogenic claudication No pertinent family history Psychiatric care Tobacco use disorder, moderate, dependence Surgical History History of back surgery Family History Mother Diabetes Alpha galactosidase deficiency Lung disease copd, emphysema Other Hypertension Psychiatric illness Stroke Denies family history of CAD (coronary artery disease) Clotting disorder Dementia Hyperlipidemia Chronic kidney disease (CKD) Anesthesia complication Bleeding disorder Cancer Social History Smoking and tobacco status: current every day smoker (half a pack ) cigarettes Years cigarettes smoked: 20 [ Other cigarette details: 3 per day] Quit status (tobacco): has tried quititng Number of times tried to quit tobacco: 6 Second hand smoke exposure: Yes Alcohol intake: former Desire information about alcohol rehabilitation?: No Desire information about substance/drug rehabilitation?: No Lives independently: Yes Housing: Other Details: rehabilitation Current occupational status: disabled Current gender identity: Male Course Vital Signs: Vital signs: Vital Signs Temperature 97.5 F L 05/26/22 11:56 Pulse Rate 101 H 05/26/22 11:56 Respiratory Rate 18 05/26/22 11:56 Blood Pressure 136/91 05/26/22 11:56 Pulse Oximetry 96 05/26/22 11:56 Oxygen Delivery Me thod 05/26/22 11:56 MDM - Chest Pain Medical Decision Making EKG demonstrates sinus rhythm with nonspecific ST segment abnormalities, normal intervals, no STEMI. Patient left prior to evaluation. Lab Data Radiology Impressions Chest X-Ray 05/26/22 12:20 IMPRESSION: No acute findings. 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
== END 2022-05-26 15:05 | disposition left against medical advice (07) ==
PROVIDERS: Emergency Provider Emergency Medicine; PCP Family Medicine
DX: R07.9 Chest pain, unspecified (principal); Z53.21 Procedure and treatment not carried out due to patient leaving prior to being seen by health care provider; F17.210 Nicotine dependence, cigarettes, uncomplicated
CPT/HCPCS: 71045; 93005; 99284

== ENCOUNTER → 2022-06-28 09:00 | Outpatient (BNVA) | payer OTHER, SELFPAY | PROVIDERS: PCP Family Medicine; Visit Provider Psychiatry & Neurology Psychiatry | DX: F41.1 Generalized anxiety disorder (principal); Z79.899 Other long term (current) drug therapy | CPT/HCPCS: 80061; 83036 ==

== ENCOUNTER 2022-09-03 10:28 | Emergency (ER) | payer MEDICARE, MEDICAID, SELFPAY ==
[2022-07-10 17:00] VITALS: BP 151/92; BMI 24.9
[2022-09-03 11:01] VITALS: BP 153/115; PULSE 112; RESP 18; TEMP 37; O2SAT 96; BMI 24.8
--- NOTE | 2022-09-03 11:07 | XRR_ITS ---
PROCEDURE INFORMATION: Exam: XR Chest Exam date and time: 09/03/2022 11:33 AM Age: 37 years old Clinical indication: Fever; Additional info: Cough, fevers; Covid exposure TECHNIQUE: Imaging protocol: Radiologic exam of the chest. Views: 1 view. COMPARISON: CR XR chest 1V portable [id number] 05/26/2022 12:30 PM FINDINGS: Lungs: Lungs are clear. Pleural spaces: There is no pleural effusion or pneumothorax. Heart/Mediastinum: Cardiomediastinal contours are unremarkable. Bones/joints: Bones are unremarkable. XR/XR chest 1V portable [id number] IMPRESSION: No acute findings.
--- NOTE | 2022-09-03 11:17 | W.ED.URI ---
HPI - URI/Sore Throat General: Chief Complaint: COVID symptoms Stated Complaint: n/v Time Seen by Provider: 09/03/22 11:07 Source: patient and family Mode of arrival: ambulatory Limitations: no limitations History of Present Illness: Patient is a 37-year-old male who presents to ED today with a complaint of nasal congestion/sinus pressure, cough, subjective fevers, body aches, and diarrhea starting over the past 2 to 3 days. Patient states symptoms initially started approximately 3 weeks ago. He states his significant other tested positive for COVID via home antigen testing at that time. He was placed on Paxlovid due to positive exposure and symptomatic. Patient felt like he did improve but 2 to 3 days ago began having symptoms again and wonders if he is re-infected . MD elicited complaint: fever (subjective), cough, rhinorrhea, nasal congestion, sinus pain and other (diarrhea) Pertinent past history: other (recent COVID infection) Onset (ago): day(s) Severity: mild Description of mucous: clear Able to tolerate fluids by mouth: Yes Exacerbating factors: nothing Relieving factors: nothing Context: sick contacts (significant other sick with similar symptoms ) Associated symptoms: Reports chills, diarrhea, fever(s), nasal congestion and sinus pain; Deny abdominal pain, chest pain, ear or mastoid pain, headache(s), nausea or vomiting Treatments prior to arrival: none Review of Systems Const: Reports: fever(s), chills and body aches; Denies: change in appetite, fatigue, malaise or night sweats Eyes: Denies: change in vision, blurry vision, photophobia, eye discomfort or eye discharge ENMT: Reports: nasal discharge, nasal congestion and sinus pain; Denies: throat pain, enlarged tonsils, odynophagia, swelling of lips/tongue, oral sores, ear or mastoid pain, ear discharge or post nasal drip Card: Denies: chest pain, palpitations, irregular heart rhythm, edema, lightheadedness, syncope, pre-syncope, dyspnea on exertion or orthopnea Resp: Reports: productive cough and chest congestion; Denies: dyspnea, non-productive cough, wheezing or hemoptysis GI: Reports: diarrhea; Denies: abdominal pain, nausea, vomiting, hematochezia or melena Musc: Denies: neck pain, back pain, extremity pain or joint pain Skin/Breast: Denies: rash Neuro: Denies: headache(s), numbness in extremities, weakness in extremities, sensory changes or dizziness All/Imm: Denies: facial swelling or seasonal rhinorrhea PFSH ED PFSH: Medical History Arthritis Chronic pain History of broken collarbone surgically repaired x2 Lumbar stenosis with neurogenic claudication No pertinent family history Psychiatric care Tobacco use disorder, moderate, dependence Surgical History History of back surgery Family History Mother Diabetes Alpha galactosidase deficiency Lung disease copd, emphysema Other Hypertension Psychiatric illness Stroke Denies family history of CAD (coronary artery disease) Clotting disorder Dementia Hyperlipidemia Chronic kidney disease (CKD) Anesthesia complication Bleeding disorder Cancer Social History Smoking and tobacco status: current every day smoker (half a pack ) cigarettes Packs smoked per day: 0.5 Years cigarettes smoked: 20 and smokeless tobacco Smokeless tobacco user: chewing tobacco Smokeless tobacco details: 1 can per week Quit status (tobacco): has tried quititng Number of times tried to quit tobacco: 6 Second hand smoke exposure: Yes Smoking risk assessment/counseling performed?: Yes (risks, benefits, and discussed other coping skills) Alcohol intake: current Alcohol intake frequency: few times a month Alcohol type: hard liquor Desire information about alcohol rehabilitation?: No Substance/Drug Use: current Substance/Drug use frequency: daily Other substance/drug use details: 05/13 last a month Desire information about substance/drug rehabilitation?: No Adopted: No Caregiver/support person: No Lives independently: Yes Household members: spouse Housing: Other Details: camper at [id number] Marital status: Number of children: 2 Number of grandchildren: 0 Highest education level completed: 10th Grade service: No Current occupational status: disabled Current occupational exposures/hazards: No Pets and animals: Yes Pets & animals: cat(s) Pets & animal details: BB Leisure activites: other Leisure activities details: TV, you tube, forging knives Sexually active: Yes Do you think of yourself as: Straight/Heterosexual Current gender identity: Male Marley/Spiritism: None Special marley needs: No Agree to transfusion: Yes Financial difficulty paying for basics: Somewhat Hard Physical Exam Const: COMMON NORMALS: no acute distress, average body habitus, patient oriented x3, no limitations, alert and well nourished GENERAL APPEARANCE: cooperative ORIENTATION/CONSCIOUSNESS: Yes awake, Yes oriented to person, Yes oriented to place and Yes oriented to time HENMT: COMMON NORMALS: normocephalic, atraumatic, hearing grossly normal bilaterally, external ears normal, EAC's normal, TM's normal bilaterally, Normal external nose present, Normal nasal mucous membranes and turbinates present, moist oral mucous membranes and oropharynx normal HEAD & SCALP: normal to inspection, normocephalic and atraumatic FACE & SINUS: normal facial exam and sinuses nontender NOSE: Normal external nose present and Normal nasal mucous membranes and turbinates present EXTERNAL EAR: Yes external ears normal EXTERNAL AUDITORY CANAL: EAC's normal TYMPANIC MEMBRANE: TM's normal bilaterally MOUTH: Normal oral and palatal mucosa present, lip normal and tongue normal THROAT: posterior oropharynx normal, tonsils normal and uvula midline Eye: COMMON NORMALS: Equal, round and reactive pupils present, EOMs intact bilaterally and conjunctivae normal GENERAL EYE: appearance normal, both eyes and all related structures CONJUNCTIVA: Yes conjunctivae normal PUPIL: Yes Equal, round and reactive pupils present Neck/C-Spine: COMMON NORMALS: full ROM and no lymphadenopathy GENERAL: Yes normal visual inspection Chest: COMMONS NORMALS: normal inspection of the chest and normal palpation of entire chest wall Resp: COMMON NORMALS: normal respiratory effort EFFORT & INSPECTION: Yes able to speak in complete sentences AUSCULTATION: wheezes (ADELINA) Cardio: COMMON NORMALS: regular rhythm RATE: tachycardic (mild-105) RHYTHM: regular rhythm GI: COMMON NORMALS: Normal to inspection, nondistended, normoactive bowel sounds present, Soft to palpation, non-tender, No hepatosplenomegaly present and no masses PALPATION: Yes Soft to palpation and Yes No hepatosplenomegaly present Extremity: COMMON NORMALS: normal to inspection, capillary refill normal, no joint enlargement, no clubbing, cyanosis or edema, no calf tenderness and no pedal edema GENERAL: Yes normal exam except as noted Neuro: [place] COMA SCALE: document GCS findings [place] coma scale eye opening: Spontaneous [place] coma scale verbal response: Orientated [place] coma scale motor response: Obey commands [place] coma scale total score: 15 COMMON NORMALS: patient oriented x3, moves all extremities, no focal motor deficits and no sensory deficits noted SENSORIUM/ORIENTATION: Yes alert, Yes oriented to person, Yes oriented to place and Yes oriented to time Skin: COMMON NORMALS: no rashes or lesions noted GENERAL SKIN EXAM: no rashes or lesions noted Course Vital Signs: Vital signs: Vital Signs Temperature 98.6 F 09/03/22 11:01 Pulse Rate 112 H 09/03/22 11:01 Respiratory Rate 18 09/03/22 11:01 Blood Pressure 153/115 09/03/22 11:01 Pulse Oximetry 96 09/03/22 11:01 Oxygen Delivery Me thod Room Air 09/03/22 11:01 MDM - URI/Sore Throat Medical Decision Making Patient appears in no acute distress. Significant other here with similar symptoms. Most likely viral etiology. CXR appears normal. Respiratory panel collected and pending. Recommend conservative therapies at home. Discussed PCP follow-up for not improving or worsening symptoms. Return ED precautions given. Discharge Plan Discharge Patient Disposition: Home Clinical Impression: Viral illness Condition: Stable Prescriptions: No Action Medical marijuana inhalation aripiprazole 10 mg tablet 10 mg PO DAILY 30 Days Qty: 30 1RF fluoxetine 20 mg capsule 20 mg PO DAILY 30 Days Qty: 30 1RF gabapentin 300 mg capsule 300 mg PO TID 30 Days Qty: 90 2RF hydroxyzine pamoate 25 mg capsule 50 mg PO Q6H PRN (Reason: Anxiety) 30 Days Qty: 60 1RF pantoprazole 40 mg tablet,delayed release (DR/EC) 40 mg PO DAILY Qty: 30 1RF quetiapine 100 mg tablet 200 mg PO BEDTIME 30 Days Qty: 60 1RF albuterol sulfate [Ventolin HFA] 90 mcg/actuation HFA aerosol inhaler 1 inh inhalation QID PRN (Reason: shortness of breath or wheezing) Qty: 8.5 0RF Symbicort 160-4.5 mcg/actuation HFA aerosol inhaler 1 inh inhalation BID 30 Days Qty: 10.2 1RF Discharge Orders: Discharge ED (Routine); Ordered 09/03/22 Ordered By: Jyothi Guzman Referrals: Cornelius Villegas MD [Primary Care Provider] - Patient Instructions: Viral Syndrome (ED) Activity Restrictions/Additional Instructions: As we discussed you will be contacted if anything on your respiratory panel comes back positive. You may continue to treat symptoms conservatively at this time. Please follow-up with primary care if symptoms do not seem to be improving over the next 5 to 7 days or if symptoms seem to be worsening. 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
[2022-09-03 13:31] LABS: Adenovirus Not Detected (NOT DETECT); Chlamydia Pneumoniae Not Detected (NOT DETECT); Coronavirus 229E,HKU1,NL63,OC4 Not Detected (NOT DETECT); Human Metapneumovirus Not Detected (NOT DETECT); Human Rhinovirus/Enterovirus Not Detected (NOT DETECT); Influenza A Not Detected (NOT DETECT); Influenza A H1 Not Detected (NOT DETECT); Influenza A H1-2009 Not Detected (NOT DETECT); Influenza A H3 Not Detected (NOT DETECT); Influenza B Not Detected (NOT DETECT); Mycoplasma Pneumoniae Not Detected (NOT DETECT); Parainfluenza Virus Type 1 Not Detected (NOT DETECT); Parainfluenza Virus Type 2 Not Detected (NOT DETECT); Parainfluenza Virus Type 3 Not Detected (NOT DETECT); Parainfluenza Virus Type 4 Not Detected (NOT DETECT); Respiratory Syncytial Virus A Not Detected (NOT DETECT); Respiratory Syncytial Virus B Not Detected (NOT DETECT); SARS-COV-2 Not Detected (NOT DETECT)
== END 2022-09-03 12:40 | disposition home or self-care (01) ==
PROVIDERS: Emergency Provider Physician Assistant; PCP Family Medicine
DX: B34.9 Viral infection, unspecified (principal); F17.210 Nicotine dependence, cigarettes, uncomplicated; F17.220 Nicotine dependence, chewing tobacco, uncomplicated
CPT/HCPCS: 71045; 87486; 87581; 87633; 99284

== ENCOUNTER 2022-10-22 14:50 | Inpatient (IN) | payer MEDICARE, MEDICAID, SELFPAY ==
[2022-10-22 12:01] VITALS: BP 151/92; BMI 24.9
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
[2022-10-22 14:56] VITALS: BP 122/96; PULSE 157; RESP 22; TEMP 37.2; O2SAT 97
[2022-10-22] MEDS: LORazepam 2 mg/mL INJ 1 mL IM (15:01)
[2022-10-22] MEDS: ARIPiprazole 10 mg Tablet PO (15:01)
--- NOTE | 2022-10-22 15:14 | ECG_ITS ---
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 Measurements Intervals [place] Rate: 126 P: 72 PA: 126 QRS: 49 QRSD: 94 T: 58 QT: 289 QTc: 420 Interpretive Statements SINUS TACHYCARDIA POSSIBLE ANTERIOR MYOCARDIAL INFARCTION , OF INDETERMINATE AGE [30 ms Q WAVE IN V3/V4, OR R < 0.2 mV IN V4] Compared to ECG 05/26/2022 12:09:22 Myocardial infarct finding now present Sinus rhythm no longer present T-wave abnormality no longer present Electronically Signed On 10-22-2022 17:24:04 CDT by James Calvillo M.D. [email or web address]
--- NOTE | 2022-10-22 15:21 | PC.NURSE ---
Patient dressed into scrubs, belongings taken out of room, sitter outside of room.
--- NOTE | 2022-10-22 15:32 | PC.NURSE ---
96 hr rights reviewed with patient in accompaiance of [facility] bank secrecy act officer Omer @[id number]. All questions answered and education regarding 96. Patient copy left at bedside with patient, and no needs verbalized by patient at this time.
[2022-10-22 15:49] LABS: Amphetamines Screen Urine Negative (Negative); Barbiturates Screen Urine Negative (Negative); Benzodiazepines Screen Urine Negative (Negative); Cocaine Screen Urine Negative (Negative); Opiate Screen Urine Negative (Negative); PCP Screen Urine Negative (Negative); THC Screen Urine Positive (Negative)
--- NOTE | 2022-10-22 15:57 | PC.PHAR ---
PT MEDICATED UPON ARRIVAL- UNABLE TO COMPLETE MED REC
[2022-10-22 16:06] LABS: Basophils # 0.1 10^3/uL (0.0-0.1); Basophils % 0.5 %; Eosinophils # 0.1 10^3/uL (0.0-0.8); Eosinophils % 0.3 %; Hematocrit 50.1 % (42.0-52.0); Hemoglobin 16.7 g/dL (11.7-16.6); Lymphocytes # 3.6 10^3/uL (0.8-4.8); Lymphocytes % 24.3 %; Mean Corpuscular HGB Conc 33.3 g/dL (30.0-36.0); Mean Corpuscular Hemoglobin 29.5 pg (28.0-34.0); Mean Corpuscular Volume 88.4 fl (80-94); Mean Platelet Volume 9.3 fL (7.4-10.4); Monocytes # 0.8 10^3/uL (0.2-0.9); Monocytes % 5.2 %; Neutrophils # 10.18 10^3/uL (1.8-7.7); Neutrophils % 69.2 %; Nucleated Red Blood Cells % 0 %; Platelet Count 275 10^3/cmm (130-400); Red Blood Count 5.67 10^6/uL (4.1-5.3); Red Cell Distribution Width 13.4 % (12.1-15.1); White Blood Count 14.7 10^3/uL (4.0-10.0)
[2022-10-22 16:38] LABS: Alanine Aminotransferase 13 U/L (0-41); Albumin Level 4.6 g/dL (3.5-5.2); Alcohol Level 221 mg/dL (0-10); Alkaline Phosphatase 77 U/L (40-130); Anion Gap 20.6 (5-19); Aspartate Amino Transferase 16 U/L (0-40); Blood Urea Nitrogen 16 mg/dL (6-20); Calcium 8.9 mg/dL (8.5-10.5); Carbon Dioxide 21 mmol/L (22-29); Chloride 103 mmol/L (98-107); Globulin 2.6 g/dL (1.3-4.6); Glomerular Filtration Rate 61.5 mL/min (90-130); Glucose 84 mg/dL (65-115); Osmolality Calculated 292 mOsm/kg (285-295); Potassium 3.6 mmol/L (3.5-5.1); Sodium 141 mmol/L (136-145); Thyroid Stimulating Hormone 0.42 uIU/mL (0.27-4.20); Total Bilirubin 0.2 mg/dL (0.15-1.2); Total Protein 7.2 g/dL (6.6-8.7)
[2022-10-22 16:43] LABS: Acetaminophen < 5.0 ug/mL (10-30); Salicylate < 0.3 mg/dL (3-10)
[2022-10-22 17:02] VITALS: BP 122/96; PULSE 109; RESP 18; O2SAT 98
[2022-10-22 17:11] VITALS: BP 122/84; PULSE 149; RESP 18; TEMP 36.7; O2SAT 96
[2022-10-22 21:07] VITALS: BP 115/72; PULSE 134; RESP 18; TEMP 36.6; O2SAT 94
[2022-10-23 06:00] VITALS: BP 149/93; PULSE 123; RESP 18; TEMP 36.7; O2SAT 98
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
[2022-10-23] MEDS: nicotine 2 mg Gum BUCCAL ×2 (09:56→15:50)
--- NOTE | 2022-10-23 10:13 | PC.NURSE ---
PT CURRENTLY DENIES SI/HI/AH/VH HOWEVER, PT STATED IF I WAS I WOULDNT TELL YOU PT IS CURRENTLY RESTING IN HIS BED. PT CURRENT NEEDS ARE MET WILL CONTINUE TO MONITOR.
[2022-10-23] MEDS: hyDROXYzine 25 mg Capsule 50 MG PO (11:17)
[2022-10-23 13:21] VITALS: BP 136/90; PULSE 88; RESP 16; TEMP 37; O2SAT 96
[2022-10-23] MEDS: acetaminophen 325 mg Tablet 650 MG PO (17:32)
[2022-10-23] MEDS: quetiapine 100 mg Tablet 200 MG PO (20:08)
[2022-10-23] MEDS: gabapentin 300 mg Capsule PO (20:08)
[2022-10-23] MEDS: OLANZapine 5 mg ODT PO (20:12)
[2022-10-23 22:00] VITALS: BP 144/96; PULSE 98; RESP 16; TEMP 36.5; O2SAT 96
[2022-10-24 06:00] VITALS: BP 120/88; PULSE 56; RESP 18; O2SAT 96
[2022-10-24] MEDS: albuterol 2.5 mg/3 mL Neb INHALATION ×2 (08:23→21:07)
[2022-10-24] MEDS: budesonide 0.5 mg/2 mL Neb INHALATION ×2 (08:23→21:07)
[2022-10-24 08:24] VITALS: PULSE 56; RESP 18; O2SAT 96
[2022-10-24] MEDS: fluoxetine 20 mg Capsule PO (09:16)
[2022-10-24] MEDS: ARIPiprazole 10 mg Tablet PO (09:16)
[2022-10-24] MEDS: gabapentin 300 mg Capsule PO ×3 (09:16→20:11)
[2022-10-24] MEDS: pantoprazole DR 40 mg Tablet PO (09:17)
[2022-10-24] MEDS: nicotine 2 mg Gum BUCCAL (12:23)
[2022-10-24 14:00] VITALS: BP 161/104; PULSE 86; RESP 20; TEMP 36.8; O2SAT 97
--- NOTE | 2022-10-24 19:09 | W.PM.NPUPNS ---
Subjective NPU Subjective: Patient presented today reporting that he is focused on reconnecting with his children and that says all that he does. He identified that there is a need for him to discontinue his addictive behavior but seemed ambivalent about actionable steps he is going to take to make that happen. He mostly appeared to want to demonstrate that he is in a good place so that discharged to happen sooner rather than later because the backdrop of his 96-hour hold. His medications have been restarted and he denies any side effects to those medications. Mental Status Exam MSE Comments: This is a well-nourished, well-developed white male in hospital scrubs with limited grooming and eye contact. No abnormal movements except for mild psychomotor retardation. Cooperative exam in mild distress. Speech was normal rate decreased volume. Mood described as a little better, affect congruent but still anxious. Thought process organized. Thought content: Patient denied suicidal or homicidal ideation, there are no delusions reported or noted, he denied any auditory or visual hallucinations. Attention and concentration were intact and memory appeared reliable but none were formally tested. He is alert and oriented x3. Insight and judgment are limited but impulse control is impaired. Vitals/I&O/Wt Last Vital Signs Temp 98.2 F 10/24/22 14:00 Pulse 86 10/24/22 14:00 Resp 20 H 10/24/22 14:00 BP 161/104 10/24/22 14:00 Pulse Ox 97 10/24/22 14:00 O2 Del Method Room Air 10/24/22 14:00 Data NPU 10/22/22 15:41 10/22/22 15:41 A&P Assessment and plan (1) Suicidal ideation: (2) Chronic post-traumatic stress disorder: (3) Major depressive disorder, recurrent severe without psychotic features: (4) Generalized anxiety disorder: (5) Nicotine dependence, unspecified, uncomplicated: (6) Methamphetamine use disorder, severe, in sustained remission: (7) Cannabis use disorder, severe, dependence: (8) Opioid use disorder, severe, in sustained remission: Plan This is a 37-year-old white male with a long history of depression, addiction and mental health issues known through past hospitalizations who presents again reporting continued significant psychosocial stressors due to multiple family concerns but downplayed continued addiction. 1. Continue current medications. Restart medication at appropriate doses 2. Continue every 15 minute checks for safety. 3. Encourage individual, group and milieu therapies. 4. Encourage sober living treatment after discharge at the hospital care to which he is willing to commit. Involuntary Hold Information 96 Hour Hold: 96 Hour Involuntary Admission: Yes 96 Hour Hold Ending Date: 10/29/22 96 Hour Hold Ending Time: 00:01 Attestations NPU Medical Necessity Statement*: Inpatient hospitalization is medically necessary and the clinically appropriate intervention at this time. We will initiate medications and make changes as indicated. Likely length of stay 3-5 days. Coding Level of Care Code Acute Code for Chg Fwd Diagnoses Suicidal ideation R45.851 Chronic post-traumatic stress disorder F43.12 Major depressive disorder, recurrent severe without psychotic features F33.2 Generalized anxiety disorder F41.1 Nicotine dependence, unspecified, uncomplicated F17.200 Methamphetamine use disorder, severe, in sustained remission F15.21 Cannabis use disorder, severe, dependence F12.20 Opioid use disorder, severe, in sustained remission F11.21
[2022-10-24] MEDS: quetiapine 100 mg Tablet 200 MG PO (20:11)
[2022-10-24 21:08] VITALS: PULSE 113; RESP 20; O2SAT 98
[2022-10-24 21:27] VITALS: BP 134/91; PULSE 79; RESP 17; TEMP 36.6; O2SAT 97
[2022-10-25 06:00] VITALS: BP 152/94; PULSE 81; RESP 18; TEMP 36.9; O2SAT 96
[2022-10-25 08:00] VITALS: PULSE 87; RESP 16; O2SAT 98
[2022-10-25] MEDS: nicotine 2 mg Gum BUCCAL (09:11)
[2022-10-25] MEDS: fluoxetine 20 mg Capsule PO (09:11)
[2022-10-25] MEDS: gabapentin 300 mg Capsule PO (09:11)
[2022-10-25] MEDS: ARIPiprazole 10 mg Tablet PO (09:11)
[2022-10-25] MEDS: pantoprazole DR 40 mg Tablet PO (09:11)
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
[2022-10-25 13:46] VITALS: PULSE 87; RESP 16; O2SAT 98
--- NOTE | 2022-10-25 13:47 | DCPLANNER ---
IMM was printed and explained and give to pt and copy put in file.
[2022-10-25 13:56] VITALS: BP 147/93; PULSE 87; RESP 16; O2SAT 98
[2022-10-25 14:00] VITALS: BP 147/93; PULSE 98; TEMP 36.7; O2SAT 96
== END 2022-10-25 15:21 | disposition home or self-care (01) | DRG 885 ==
LOC: ER 15:19 → NP 16:00
PROVIDERS: Admitting Provider Psychiatry & Neurology Psychiatry; Emergency Provider Emergency Medicine; PCP Family Medicine; Visit Provider Psychiatry & Neurology Psychiatry
DX: F33.2 Major depressive disorder, recurrent severe without psychotic features (principal); R45.851 Suicidal ideations; F10.129 Alcohol abuse with intoxication, unspecified; Y90.7 Blood alcohol level of 200-239 mg/100 ml; F12.90 Cannabis use, unspecified, uncomplicated; F15.21 Other stimulant dependence, in remission; F11.21 Opioid dependence, in remission; F43.12 Post-traumatic stress disorder, chronic; F41.1 Generalized anxiety disorder
CPT/HCPCS: 36415; 80053; 80306; 80307; 84443; 85025; 93005; 94640; 96372; 97150; 97165; 99238; 99285; J2060; J7613; J7626

== ENCOUNTER 2022-12-05 21:10 | Emergency (ER) | payer MEDICARE, MEDICAID, SELFPAY ==
[2022-10-25 13:08] VITALS: BP 151/92; BMI 24.9
[2022-12-05 21:23] VITALS: BMI 27.3
[2022-12-05 21:39] VITALS: BP 121/77; PULSE 101; RESP 18; TEMP 36.6; O2SAT 97
--- NOTE | 2022-12-05 21:54 | XRR_ITS ---
PROCEDURE INFORMATION: Exam: XR Left Shoulder Exam date and time: 12/05/2022 10:07 PM Age: 37 years old Clinical indication: Pain; Shoulder; Left; Additional info: Injury TECHNIQUE: Imaging protocol: Radiologic exam of the left shoulder. Views: 2 or more views. COMPARISON: CR XR chest 1V portable [id number] 09/03/2022 11:33 AM FINDINGS: Bones/joints: Osseous structures are intact. Negative for fracture. There is widening of the acromioclavicular joint space up to 8 mm. Soft tissues: Normal. XR/XR shoulder LT min 2V* [id number] IMPRESSION: Potential grade 1 acromioclavicular sprain. Negative for fracture.
--- NOTE | 2022-12-06 00:35 | ED_ITS ---
HPI - Neck Pain/Injury General: Chief Complaint: Neck Pain/Injury Stated Complaint: neck pain/ left side Time Seen by Provider: 12/06/22 00:30 Source: patient Mode of arrival: ambulatory Limitations: no limitations History of Present Illness: 37-year-old male states he has been sleeping in his car over the last month states he has been having left shoulder pain is much worse with movement with palpation improved with rest. States pain is sharp in nature rates it a 6 out of 10 denies any chest pain denies any known injuries. Associated symptoms: Denies headache(s) or nausea Review of Systems Const: Denies: fever(s) or chills ENMT: Denies: throat pain or dental pain Card: Denies: chest pain Resp: Denies: dyspnea GI: Denies: abdominal pain, nausea, vomiting or diarrhea Musc: Reports: neck pain; Denies: back pain Skin/Breast: Denies: rash Neuro: Denies: headache(s) PFSH ED PFSH: Medical History Arthritis Chronic pain History of broken collarbone surgically repaired x2 Lumbar stenosis with neurogenic claudication No pertinent family history Psychiatric care Severe alcohol use disorder Tobacco use disorder, moderate, dependence Surgical History History of back surgery Family History Mother Diabetes Alpha galactosidase deficiency Lung disease copd, emphysema Other Hypertension Psychiatric illness Stroke Denies family history of CAD (coronary artery disease) Clotting disorder Dementia Hyperlipidemia Chronic kidney disease (CKD) Anesthesia complication Bleeding disorder Cancer Social History Smoking and tobacco status: current every day smoker cigarettes Packs smoked per day: 0.25 Years cigarettes smoked: 20 and smokeless tobacco Smokeless tobacco user: chewing tobacco Smokeless tobacco details: 1 can per week Quit status (tobacco): has tried quititng Number of times tried to quit tobacco: 6 Second hand smoke exposure: Yes Smoking risk assessment/counseling performed?: Yes (risks, benefits, and discussed other coping skills) Alcohol intake: former Desire information about alcohol rehabilitation?: No Substance/Drug Use: current Substance/Drug use frequency: daily Other substance/drug use details: 05/13 last a month Desire information about substance/drug rehabilitation?: No Adopted: No Caregiver/support person: No Lives independently: Yes Household members: spouse Housing: Other Details: [facility] at [id number] Marital status: Number of children: 2 Number of grandchildren: 0 Highest education level completed: 10th Grade service: No Current occupational status: disabled Current occupational exposures/hazards: No Pets and animals: Yes Pets & animals: cat(s) Pets & animal details: BB Leisure activites: other Leisure activities details: TV, you tube, forging knives Sexually active: Yes Do you think of yourself as: Straight/Heterosexual Current gender identity: Male Marley/Anabaptist: None Special marley needs: No Agree to transfusion: Yes Financial difficulty paying for basics: Somewhat Hard Physical Exam Const: COMMON NORMALS: no acute distress and patient oriented x3 HENMT: COMMON NORMALS: normocephalic and atraumatic HEAD & SCALP: normocephalic and atraumatic Eye: COMMON NORMALS: conjunctivae normal CONJUNCTIVA: Yes conjunctivae normal Neck/C-Spine: OTHER: Tenderness over left shoulder no deformity noted Chest: COMMONS NORMALS: normal inspection of the chest Resp: COMMON NORMALS: normal respiratory effort Cardio: COMMON NORMALS: regular rate RATE: regular rate GI: INSPECTION: Yes normal to inspection Extremity: COMMON NORMALS: normal to inspection Neuro: COMMON NORMALS: patient oriented x3 Psych: COMMON NORMALS: mental status grossly normal Course Vital Signs: Vital signs: Vital Signs Temperature 97.9 F 12/05/22 21:39 Pulse Rate 101 H 12/05/22 21:39 Respiratory Rate 18 12/05/22 21:39 Blood Pressure 121/77 12/05/22 21:39 Pulse Oximetry 97 12/05/22 21:39 MDM - Neck Pain/Injury Medical Decision Making Patient presents here shoulder pain likely from sleeping on his arm wrong in his truck he is well-appearing here he is got full range of motion no signs of fracture he is stable for discharge we will place him on muscle accident and Naprosyn Medical Records I reviewed the patient's medical records. Lab Data I reviewed the patient's lab results. Radiology Impressions Shoulder X-Ray 12/05/22 21:54 IMPRESSION: Potential grade 1 acromioclavicular sprain. Negative for fracture. Discharge Plan Discharge Patient Disposition: Home Clinical Impression: Left shoulder pain Condition: Stable Prescriptions: New methocarbamol 750 mg tablet 750 mg PO Q6H PRN (Reason: spasms) Qty: 20 0RF Naprosyn 500 mg tablet 500 mg PO BID PRN (Reason: pain) Qty: 20 0RF No Action naltrexone 50 mg tablet 50 mg PO DAILY Qty: 30 2RF quetiapine 100 mg tablet 200 mg PO BEDTIME 30 Days Qty: 60 1RF pantoprazole 40 mg tablet,delayed release (DR/EC) 40 mg PO DAILY Qty: 30 1RF gabapentin 300 mg capsule 300 mg PO TID 30 Days Qty: 90 2RF Ventolin HFA 90 mcg/actuation HFA aerosol inhaler 1 inh inhalation QID PRN (Reason: shortness of breath or wheezing) Qty: 8.5 0RF ondansetron 4 mg tablet,disintegrating 4 mg PO Q8H PRN (Reason: nausea and vomiting) Qty: 14 0RF fluoxetine 20 mg capsule 20 mg PO DAILY 30 Days Qty: 30 1RF hydroxyzine pamoate 25 mg capsule 50 mg PO Q6H PRN (Reason: Anxiety) 30 Days Qty: 60 1RF aripiprazole 10 mg tablet 10 mg PO DAILY 30 Days Qty: 30 1RF Symbicort 160-4.5 mcg/actuation HFA aerosol inhaler 1 inh inhalation BID 30 Days Qty: 10.2 1RF Discharge Orders: Discharge ED (Routine); Ordered 12/06/22 Ordered By: Brent Lee Referrals: Cornelius Villegas MD [Primary Care Provider] - 1-3 days Discharge Diet: Advance as tolerated Discharge Activity: Resume usual activity Patient Instructions: Shoulder Pain (ED) Coding Level of Care Code ED Applications Engineering Manager for Julito Brumfield
[2022-12-06] MEDS: naproxen 500 mg Tablet PO (00:47)
[2022-12-06 00:50] VITALS: BP 154/109; PULSE 87; RESP 18; O2SAT 99
== END 2022-12-06 00:51 | disposition home or self-care (01) ==
PROVIDERS: Emergency Provider Emergency Medicine; PCP Family Medicine
DX: M25.512 Pain in left shoulder (principal); F17.210 Nicotine dependence, cigarettes, uncomplicated; Z79.899 Other long term (current) drug therapy
CPT/HCPCS: 73030; 99283

== ENCOUNTER 2023-01-19 18:10 | Emergency (ER) | payer MEDICARE, MEDICAID, SELFPAY ==
[2022-10-25 13:08] VITALS: BP 151/92; BMI 24.9
[2023-01-19 18:37] VITALS: BP 145/105; PULSE 109; RESP 18; TEMP 36.8; O2SAT 98; BMI 26.6
--- NOTE | 2023-01-19 18:40 | W.ED.BACK ---
HPI - Back Pain/Injury General: Chief Complaint: Back Pain/Injury Stated Complaint: back pain Time Seen by Provider: 01/19/23 18:31 History of Present Illness: 37-year-old male patient comes in today for complaints of low back pain. On exam patient denies any difficulty with bowels or bladder. Patient reports no fever. Patient does endorse a prior history of chronic back pain with surgical intervention. Patient appears nontoxic. Patient appears in mild to moderate pain. Review of Systems General: Reports: 10 or more systems reviewed and unremarkable except in HPI and below Musc: Reports: back pain PFSH ED PFSH: Medical History Arthritis Chronic pain History of broken collarbone surgically repaired x2 Lumbar stenosis with neurogenic claudication No pertinent family history Psychiatric care Severe alcohol use disorder Tobacco use disorder, moderate, dependence Surgical History History of back surgery Family History Mother Diabetes Alpha galactosidase deficiency Lung disease copd, emphysema Other Hypertension Psychiatric illness Stroke Denies family history of CAD (coronary artery disease) Clotting disorder Dementia Hyperlipidemia Chronic kidney disease (CKD) Anesthesia complication Bleeding disorder Cancer Social History Smoking and tobacco status: current every day smoker cigarettes Packs smoked per day: 0.25 Years cigarettes smoked: 20 and smokeless tobacco Smokeless tobacco user: chewing tobacco Smokeless tobacco details: 1 can per week Quit status (tobacco): has tried quititng Number of times tried to quit tobacco: 6 Second hand smoke exposure: Yes Smoking risk assessment/counseling performed?: Yes (risks, benefits, and discussed other coping skills) Alcohol intake: former Desire information about alcohol rehabilitation?: No Substance/Drug Use: current Substance/Drug use frequency: daily Other substance/drug use details: 05/13 last a month Desire information about substance/drug rehabilitation?: No Adopted: No Caregiver/support person: No Lives independently: Yes Household members: spouse Housing: Other Details: camper at [id number] Marital status: Number of children: 2 Number of grandchildren: 0 Highest education level completed: 10th Grade service: No Current occupational status: disabled Current occupational exposures/hazards: No Pets and animals: Yes Pets & animals: cat(s) Pets & animal details: BB Leisure activites: other Leisure activities details: TV, you tube, forging knives Sexually active: Yes Do you think of yourself as: Straight/Heterosexual Current gender identity: Male Marley/Amish: None Special marley needs: No Agree to transfusion: Yes Financial difficulty paying for basics: Somewhat Hard Physical Exam Const: COMMON NORMALS: alert HENMT: HEAD & SCALP: normal to inspection Neck/C-Spine: COMMON NORMALS: full ROM Resp: COMMON NORMALS: normal respiratory effort and clear to auscultation bilaterally AUSCULTATION: clear to auscultation bilaterally Cardio: COMMON NORMALS: regular rate RATE: regular rate Back/Pelvis: COMMON NORMALS: thoracic and lumbar spine normal to inspection THORACIC SPINE/UPPER BACK: No thoracic spinal tenderness LUMBAR SPINE/LOWER BACK: No lumbar spinal tenderness Extremity: COMMON NORMALS: full ROM Neuro: SENSORIUM/ORIENTATION: Yes alert Skin: COMMON NORMALS: turgor normal GENERAL SKIN EXAM: turgor normal Course Vital Signs: Vital signs: Vital Signs Temperature 98.3 F 01/19/23 18:37 Pulse Rate 109 H 01/19/23 18:37 Respiratory Rate 18 01/19/23 18:37 Blood Pressure 145/105 01/19/23 18:37 Pulse Oximetry 98 01/19/23 18:37 Oxygen Delivery Me thod Room Air 01/19/23 18:37 MDM - Back Pain/Injury Medical Decision Making 37-year-old male patient comes in today with complaints of low back pain. Patient reports increased pain starting this morning. Patient does have a history of chronic back pain and a spinal fusion in his low back. Palpation of the lumbar spine elicits no pain. Patient does have some muscle tightness. Differential diagnosis includes not limited to intervertebral disc disease, facet arthropathy, lumbar strain. Patient was given an injection for ketorolac 30 mg and orphenadrine 60 mg. Patient will be continued on naproxen and methocarbamol. Patient was recommended to maintain activity and follow-up with primary care for further evaluation and treatment as needed. Patient reported understanding and agreed to plan. No radiology studies performed this visit Discharge Plan Discharge Patient Disposition: Home Clinical Impression: Acute exacerbation of chronic low back pain Condition: Stable Prescriptions: New naproxen 500 mg tablet 500 mg PO BID Qty: 20 0RF methocarbamol 750 mg tablet 750 mg PO TID Qty: 20 0RF No Action aripiprazole 10 mg tablet 10 mg PO DAILY 30 Days Qty: 30 2RF fluoxetine 20 mg capsule 20 mg PO DAILY 30 Days Qty: 30 2RF gabapentin 300 mg capsule 300 mg PO TID 30 Days Qty: 90 2RF hydroxyzine pamoate 25 mg capsule 50 mg PO Q6H PRN (Reason: Anxiety) 30 Days Qty: 120 2RF naltrexone 50 mg tablet 50 mg PO DAILY Qty: 30 2RF quetiapine 100 mg tablet 200 mg PO BEDTIME 30 Days Qty: 60 2RF varenicline 1 mg tablet 1 mg PO BID Qty: 56 2RF (DME) Nebulizer with hose and supplies See Rx Instructions .Route .MEDSUPPLY Qty: 1 0RF Rx Instructions: q6hrs PRN with albuterol treatment. long-term treatment pantoprazole 40 mg tablet,delayed release (DR/EC) 40 mg PO DAILY Qty: 30 1RF Ventolin HFA 90 mcg/actuation HFA aerosol inhaler 1 inh inhalation QID PRN (Reason: shortness of breath or wheezing) Qty: 8.5 0RF ondansetron 4 mg tablet,disintegrating 4 mg PO Q8H PRN (Reason: nausea and vomiting) Qty: 14 0RF Symbicort 160-4.5 mcg/actuation HFA aerosol inhaler 1 inh inhalation BID 30 Days Qty: 10.2 1RF Discharge Orders: Discharge ED (Routine); Ordered 01/19/23 Ordered By: Salvador Batista Referrals: Cornelius Villegas MD [Primary Care Provider] - Discharge Diet: Usual diet Discharge Activity: Increase activity as tolerated Patient Instructions: Back Pain (ED) Activity Restrictions/Additional Instructions: Try to maintain activity as much as possible. Use naproxen 500 mg 2 times a day for pain and inflammation. You can use some acetaminophen, Tylenol, 1000 mg 4 times a day as needed for further pain relief. Take methocarbamol for muscle spasms 750 mg 3 times a day as needed. Follow-up with primary care for further instructions. Return to ED for worsening symptoms such as high fever greater than 100.4, loss of bowel or bladder control, or new concerns. 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
[2023-01-19] MEDS: ketorolac 30 mg/mL INJ IM (18:51)
[2023-01-19] MEDS: orphenadrine 30 mg/mL Inj 2 mL 60 MG IM (18:52)
[2023-01-19 19:21] VITALS: PULSE 83; O2SAT 97
--- NOTE | 2023-01-21 08:20 | PC.SOCIAL ---
Ortho Referral Referral message sent to clinic at this time. Clinic to contact patient with appt date/time.
== END 2023-01-19 19:23 | disposition home or self-care (01) ==
PROVIDERS: Emergency Provider Nurse Practitioner Family; PCP Family Medicine
DX: G89.29 Other chronic pain (principal); M54.50 Low back pain, unspecified; F17.210 Nicotine dependence, cigarettes, uncomplicated
CPT/HCPCS: 96372; 99284; J1885; J2360

== ENCOUNTER → 2023-01-29 14:51 | Outpatient (BNVA) | payer MEDICARE, MEDICAID, SELFPAY ==
[2022-10-25 13:08] VITALS: BP 151/92; BMI 24.9
== END ==
PROVIDERS: PCP Family Medicine; Referring Provider Nurse Practitioner Family; Visit Provider Orthopaedic Surgery
DX: M54.50 Low back pain, unspecified (principal); G89.29 Other chronic pain
CPT/HCPCS: 99214

== ENCOUNTER 2023-02-07 11:24 | Emergency (ER) | payer MEDICARE, MEDICAID, SELFPAY ==
[2022-10-25 13:08] VITALS: BP 151/92; BMI 24.9
[2023-02-07 11:39] VITALS: BP 127/81; PULSE 79; RESP 20; TEMP 36.8; O2SAT 94
--- NOTE | 2023-02-07 11:43 | W.ED.URI ---
HPI - URI/Sore Throat General: Chief Complaint: Upper Respiratory Infection Stated Complaint: cough/sore throat/congested Time Seen by Provider: 02/07/23 11:25 Source: patient Mode of arrival: ambulatory Limitations: no limitations History of Present Illness: Patient is a 37-year-old male who presents to ED today with a complaint of nasal congestion/sinus pressure, sore throat, cough. Symptoms have been present over the past several days. He states his son was recently treated for strep. He states his is sick with similar symptoms of nasal congestion and a cough. Patient states he wants tested for strep and COVID. He arrives in no acute distress with stable vital signs. MD elicited complaint: cough, sore throat and nasal congestion Onset (ago): day(s) Consistency: constant Severity: mild Description of mucous: clear Able to tolerate fluids by mouth: Yes Relieving factors: nothing Context: sick contacts (son with strep throat; is sick as well) Associated symptoms: Reports nasal congestion; Deny abdominal pain, chills, chest pain, diarrhea, ear or mastoid pain, fever(s), headache(s), sinus pain or vomiting Treatments prior to arrival: none Review of Systems Const: Denies: fever(s), chills, body aches, fatigue or malaise Eyes: Denies: change in vision, blurry vision, photophobia, eye discomfort, eye discharge, eye redness, floaters or seeing flashes ENMT: Reports: throat pain, odynophagia, nasal discharge and nasal congestion; Denies: ear or mastoid pain, ear discharge or sinus pain Card: Denies: chest pain Resp: Reports: non-productive cough, wheezing (chronic-has nebulizer) and chest congestion; Denies: dyspnea, pain on inspiration, change in phlegm color or hemoptysis GI: Denies: abdominal pain, vomiting or diarrhea Musc: Denies: neck pain, back pain, extremity pain or joint pain Skin/Breast: Denies: rash Neuro: Denies: headache(s) or dizziness PFSH ED PFSH: Medical History Arthritis Chronic pain History of broken collarbone surgically repaired x2 Lumbar stenosis with neurogenic claudication No pertinent family history Psychiatric care Severe alcohol use disorder Tobacco use disorder, moderate, dependence Surgical History History of back surgery Family History Mother Diabetes Alpha galactosidase deficiency Lung disease copd, emphysema Other Hypertension Psychiatric illness Stroke Denies family history of CAD (coronary artery disease) Clotting disorder Dementia Hyperlipidemia Chronic kidney disease (CKD) Anesthesia complication Bleeding disorder Cancer Social History Smoking and tobacco status: current every day smoker cigarettes Packs smoked per day: 0.25 Years cigarettes smoked: 20 and smokeless tobacco Smokeless tobacco user: chewing tobacco Smokeless tobacco details: 1 can per week Quit status (tobacco): has tried quititng Number of times tried to quit tobacco: 6 Second hand smoke exposure: Yes Smoking risk assessment/counseling performed?: Yes (risks, benefits, and discussed other coping skills) Alcohol intake: former Desire information about alcohol rehabilitation?: No Substance/Drug Use: current Substance/Drug use frequency: daily Other substance/drug use details: 05/13 last a month Desire information about substance/drug rehabilitation?: No Adopted: No Caregiver/support person: No Lives independently: Yes Household members: spouse Housing: Other Details: [facility] at [id number] Marital status: Number of children: 2 Number of grandchildren: 0 Highest education level completed: 10th Grade service: No Current occupational status: disabled Current occupational exposures/hazards: No Pets and animals: Yes Pets & animals: cat(s) Pets & animal details: BB Leisure activites: other Leisure activities details: TV, you tube, forging knives Sexually active: Yes Do you think of yourself as: Straight/Heterosexual Current gender identity: Male Marley/Restorationist: None Special marley needs: No Agree to transfusion: Yes Financial difficulty paying for basics: Somewhat Hard Physical Exam Const: COMMON NORMALS: no acute distress, average body habitus, patient oriented x3, no limitations, healthy appearing, alert and well nourished GENERAL APPEARANCE: cooperative ORIENTATION/CONSCIOUSNESS: Yes awake, Yes oriented to person, Yes oriented to place and Yes oriented to time HENMT: COMMON NORMALS: normocephalic, atraumatic, hearing grossly normal bilaterally, external ears normal, Normal external nose present, moist oral mucous membranes and oropharynx normal HEAD & SCALP: normal to inspection, normocephalic and atraumatic FACE & SINUS: normal facial exam and sinuses nontender NOSE: Normal external nose present EXTERNAL EAR: Yes external ears normal MOUTH: Normal oral and palatal mucosa present and tongue normal THROAT: tonsils normal, uvula midline and posterior oropharynx abnormal erythema Eye: COMMON NORMALS: Equal, round and reactive pupils present, EOMs intact bilaterally and conjunctivae normal CONJUNCTIVA: Yes conjunctivae normal PUPIL: Yes Equal, round and reactive pupils present Neck/C-Spine: COMMON NORMALS: no lymphadenopathy Chest: COMMONS NORMALS: normal inspection of the chest Resp: COMMON NORMALS: normal respiratory effort and clear to auscultation bilaterally AUSCULTATION: clear to auscultation bilaterally Cardio: COMMON NORMALS: regular rate and regular rhythm RATE: regular rate RHYTHM: regular rhythm Neuro: COMMON NORMALS: patient oriented x3 SENSORIUM/ORIENTATION: Yes alert, Yes oriented to person, Yes oriented to place and Yes oriented to time Course Vital Signs: Vital signs: Vital Signs Temperature 98.2 F 02/07/23 11:39 Pulse Rate 79 02/07/23 11:39 Respiratory Rate 20 H 02/07/23 11:39 Blood Pressure 127/81 02/07/23 11:39 Pulse Oximetry 94 02/07/23 11:39 Oxygen Delivery Me thod Room Air 02/07/23 11:39 MDM - URI/Sore Throat Medical Decision Making Patient appears in no acute distress. His rapid strep is negative. We will contact him later if his COVID comes back positive. Discussed CXR imaging however patient refuses. Return ED precautions given. Lab Data Laboratory Results Group A Strep Rapid Negative (Negative) 02/07/23 11:50 No radiology studies performed this visit Discharge Plan Discharge Patient Disposition: Home Clinical Impression: Upper respiratory infection Qualifiers: URI type: unspecified viral URI Qualified Code(s): J06.9 - Acute upper respiratory infection, unspecified Condition: Stable Prescriptions: No Action aripiprazole 10 mg tablet 10 mg PO DAILY 30 Days Qty: 30 2RF fluoxetine 20 mg capsule 20 mg PO DAILY 30 Days Qty: 30 2RF hydroxyzine pamoate 25 mg capsule 50 mg PO Q6H PRN (Reason: Anxiety) 30 Days Qty: 120 2RF naltrexone 50 mg tablet 50 mg PO DAILY Qty: 30 2RF quetiapine 100 mg tablet 200 mg PO BEDTIME 30 Days Qty: 60 2RF varenicline 1 mg tablet 1 mg PO BID Qty: 56 2RF prednisone 20 mg tablet 20 mg PO DAILY Qty: 15 0RF Rx Instructions: 60MG X 3 Days 40MG X 2 Days 20MG X 2 Days cyclobenzaprine 10 mg tablet 10 mg PO TID Qty: 30 0RF (DME) Nebulizer with hose and supplies See Rx Instructions .Route .MEDSUPPLY Qty: 1 0RF Rx Instructions: q6hrs PRN with albuterol treatment. long-term treatment gabapentin 300 mg capsule 300 mg PO TID 30 Days Qty: 90 2RF pantoprazole 40 mg tablet,delayed release (DR/EC) 40 mg PO DAILY Qty: 30 1RF Ventolin HFA 90 mcg/actuation HFA aerosol inhaler 1 inh inhalation QID PRN (Reason: shortness of breath or wheezing) Qty: 8.5 0RF ondansetron 4 mg tablet,disintegrating 4 mg PO Q8H PRN (Reason: nausea and vomiting) Qty: 14 0RF Symbicort 160-4.5 mcg/actuation HFA aerosol inhaler 1 inh inhalation BID 30 Days Qty: 10.2 1RF naproxen 500 mg tablet 500 mg PO BID Qty: 20 0RF methocarbamol 750 mg tablet 750 mg PO TID Qty: 20 0RF Discharge Orders: Discharge ED (Routine); Ordered 02/07/23 Ordered By: Jyothi Guzman Referrals: Cornelius Villegas MD [Primary Care Provider] - Activity Restrictions/Additional Instructions: Your strep was negative. As we discussed we will contact you later today IF your COVID swab returns positive. You may use [id number] cough/cold medications as needed to help with your discomfort as well as home remedies such as honey and elderberry syrup. 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
[2023-02-07 12:33] LABS: Rapid Strep A Test Negative (Negative)
[2023-02-07 12:47] VITALS: RESP 18; O2SAT 94
[2023-02-07 14:06] LABS: Adenovirus Not Detected (NOT DETECT); Chlamydia Pneumoniae Not Detected (NOT DETECT); Coronavirus 229E,HKU1,NL63,OC4 Not Detected (NOT DETECT); Human Metapneumovirus Not Detected (NOT DETECT); Human Rhinovirus/Enterovirus Not Detected (NOT DETECT); Influenza A Not Detected (NOT DETECT); Influenza A H1 Not Detected (NOT DETECT); Influenza A H1-2009 Not Detected (NOT DETECT); Influenza A H3 Not Detected (NOT DETECT); Influenza B Not Detected (NOT DETECT); Mycoplasma Pneumoniae Not Detected (NOT DETECT); Parainfluenza Virus Type 1 Not Detected (NOT DETECT); Parainfluenza Virus Type 2 Not Detected (NOT DETECT); Parainfluenza Virus Type 3 Not Detected (NOT DETECT); Parainfluenza Virus Type 4 Not Detected (NOT DETECT); Respiratory Syncytial Virus A Not Detected (NOT DETECT); Respiratory Syncytial Virus B Not Detected (NOT DETECT); SARS-COV-2 Not Detected (NOT DETECT)
== END 2023-02-07 12:48 | disposition home or self-care (01) ==
PROVIDERS: Emergency Provider Physician Assistant; PCP Family Medicine
DX: J06.9 Acute upper respiratory infection, unspecified (principal); F17.210 Nicotine dependence, cigarettes, uncomplicated; Z11.52 Encounter for screening for COVID-19
CPT/HCPCS: 87081; 87635; 87880; 99283

== ENCOUNTER 2023-02-27 09:27 | Outpatient (CLI) | payer MEDICARE, MEDICAID, SELFPAY ==
[2022-10-25 13:08] VITALS: BP 151/92; BMI 24.9
--- NOTE | 2023-02-27 09:30 | MR_ITS ---
WS: [id number] MRI LUMBAR SPINE NONCONTRAST TECHNIQUE: Sagittal T1, T2 and STIR imaging. Axial T1 and T2 imaging. CLINICAL INFORMATION: lumba pain COMPARISON: None. FINDINGS: Counting performed from the craniocervical junction. S1 is partially lumbarized. Millimeter. No acute compression. No high-grade central canal stenosis. L1-L2: Normal L2-L3: Mild annular bulging. Spinal canal and foramen are patent L3-L4: Mild annular bulging. Spinal canal and foramen are patent. L4-L5: Mild annular bulging with slight effacement of ventral thecal sac. Mild facet arthropathy. Spi nal canal and foramen are patent. Slight narrowing of the subarticular recess bilaterally unchanged. L5-S1: Postoperative changes hemilaminectomy new compared to previous. Slight effacement of the ventr al thecal sac with mild narrowing of the subarticular recess bilaterally. Spinal canal stenosis has i mproved. Moderate facet arthropathy. Small bilateral foraminal protrusions with mild bilateral forami nal narrowing. S1-S2: S1 is partially lumbarized. Spinal canal and foramen are patent. Mild facet arthropathy. Rudim entary disc space at this level. Visualized pelvic bony structures: Normal. Paravertebral soft tissues: Normal. Tiny central protrusion cervical spine C6-7. IMPRESSION: Counting performed from the craniocervical junction. S1 is partially lumbarized. 1. Mild lumbar curve. No acute compression. 2. No high-grade central canal stenosis. 3. Mild annular bulging L5-S1 with slight effacement of the ventral thecal sac. Hemilaminectomy is n ew compared to previous. Spinal canal stenosis has improved. 4. Small bilateral foraminal protrusions L5-S1 with mild LEFT greater than RIGHT foraminal narrowing . 5. Mild degenerative edema endplates L5-S1. 6. No other significant changes compared to previous.
== END 2023-02-27 09:28 | disposition home or self-care (01) ==
LOC: RAD 09:28
PROVIDERS: PCP Family Medicine; Visit Provider Orthopaedic Surgery
DX: M48.061 Spinal stenosis, lumbar region without neurogenic claudication (principal); M51.27 Other intervertebral disc displacement, lumbosacral region; M54.50 Low back pain, unspecified; G89.29 Other chronic pain
CPT/HCPCS: 72148

== ENCOUNTER 2023-03-24 15:03 | Emergency (ER) | payer MEDICARE, MEDICAID, SELFPAY ==
[2022-10-25 13:08] VITALS: BP 151/92; BMI 24.9
[2023-03-24 15:04] VITALS: BP 118/63; PULSE 78; TEMP 36.9; O2SAT 97; BMI 27.3
--- NOTE | 2023-03-24 15:08 | XRR_ITS ---
PROCEDURE INFORMATION: Exam: XR Chest Exam date and time: 03/24/2023 3:15 PM Age: 37 years old Clinical indication: Cough and dyspnea; Additional info: Dyspnea/cough TECHNIQUE: Imaging protocol: Radiologic exam of the chest. Views: 1 view. COMPARISON: CR XR chest 1V portable [id number] 09/03/2022 11:33 AM FINDINGS: Lungs: Unremarkable. No consolidation. Pleural spaces: Unremarkable. No pleural effusion. No pneumothorax. Heart/Mediastinum: Unremarkable. No cardiomegaly. Bones/joints: Unremarkable. XR/XR chest 1V portable [id number] IMPRESSION: No acute findings.
[2023-03-24 15:15] VITALS: BP 112/61; O2SAT 97
--- NOTE | 2023-03-24 15:23 | ED_ITS ---
HPI - SOB/Dyspnea General: Chief Complaint: Upper Respiratory Infection Stated Complaint: COUGH/CONGESTION Time Seen by Provider: 03/24/23 15:08 Source: patient Mode of arrival: EMS History of Present Illness: HPI Narrative: 37-year-old male presents emergency room chronic cough congestion last few days at home he said exposure to several other family members were sick in the home. Patient denies fever cough has been somewhat productive he spit on the floor during exam. No hemoptysis. No vomiting or diarrhea patient appears acutely intoxicated he did tell EMS he been drinking vodka today. Sometimes use rescue inhalers He states he has not had any available to him lately so has not been using them. . Patient has nasal cannula placed she was given oxygen in route but when off in the emergency room maintain sats in the mid and upper 90s consistently. MD elicited complaint: shortness of breath and cough Pertinent past history: COPD Onset (ago): day(s) Timing: constant Severity: moderate Exacerbating factors: exertion and coughing Relieving factors: rest Known history of: COPD Associated symptoms: Deny abdominal pain, chest pain or fever(s) Treatment prior to arrival: oxygen Review of Systems Const: Denies: fever(s) or chills Card: Denies: chest pain Resp: Denies: dyspnea GI: Denies: abdominal pain : Denies: dysuria, urinary frequency or urinary urgency Musc: Denies: neck pain or back pain Skin/Breast: Denies: rash PFSH ED PFSH: Medical History Arthritis Chronic pain History of broken collarbone surgically repaired x2 Lumbar stenosis with neurogenic claudication No pertinent family history Psychiatric care Severe alcohol use disorder Tobacco use disorder, moderate, dependence Surgical History History of back surgery Family History Mother Diabetes Alpha galactosidase deficiency Lung disease copd, emphysema Other Hypertension Psychiatric illness Stroke Denies family history of CAD (coronary artery disease) Clotting disorder Dementia Hyperlipidemia Chronic kidney disease (CKD) Anesthesia complication Bleeding disorder Cancer Social History Smoking and tobacco/nicotine status: current every day tobacco/nicotine user cigarettes Packs smoked per day: 0.25 Years cigarettes smoked: 20 and smokeless tobacco Smokeless tobacco user: chewing tobacco Smokeless tobacco details: 1 can per week Quit status (tobacco/nicotine): has tried quititng Number of times tried to quit tobacco: 6 Second hand smoke exposure: Yes Alcohol intake: former Substance/Drug Use: current Substance/Drug use frequency: daily Other substance/drug use details: 05/13 last a month Adopted: No Caregiver/support person: No Lives independently: Yes Household members: spouse Housing: Other Details: [facility] at [id number] Marital status: Number of children: 2 Number of grandchildren: 0 Highest education level completed: 10th Grade service: No Current occupational status: disabled Current occupational exposures/hazards: No Pets and animals: Yes Pets & animals: cat(s) Pets & animal details: BB Leisure activites: other Leisure activities details: TV, you tube, forging knives Sexually active: Yes Do you think of yourself as: Straight/Heterosexual Current gender identity: Male Marley/Rastafari: None Special marley needs: No Agree to transfusion: Yes Physical Exam Const: GENERAL APPEARANCE: cooperative and comfortable ORIENTATION/CONSCIOUSNESS: Yes awake HENMT: COMMON NORMALS: normocephalic, atraumatic and hearing grossly normal bilaterally HEAD & SCALP: normocephalic and atraumatic Resp: COMMON NORMALS: normal respiratory effort, No retractions and No use of accessory muscles AUSCULTATION: wheezes (Slight expiratory wheeze) Cardio: COMMON NORMALS: regular rate, regular rhythm and No murmurs present (Cardio) RATE: regular rate RHYTHM: regular rhythm GI: COMMON NORMALS: Soft to palpation and No hepatosplenomegaly present AUSCULTATION: Yes normoactive bowel sounds PALPATION: Yes Soft to palpation, No Tenderness to palpation present (GI), No Guarding due to palpation present (GI) and Yes No hepatosplenomegaly present Extremity: COMMON NORMALS: normal to inspection, capillary refill normal, no clubbing, cyanosis or edema, no calf tenderness and no pedal edema Skin: COMMON NORMALS: no rashes or lesions noted GENERAL SKIN EXAM: no rashes or lesions noted Course Vital Signs: Vital signs: Vital Signs Temperature 98.5 F 03/24/23 15:04 Pulse Rate 72 03/24/23 16:39 Blood Pressure 134/94 03/24/23 16:39 Pulse Oximetry 96 03/24/23 16:39 Oxygen Delivery Me thod Room Air 03/24/23 15:15 Oxygen Flow Rate 2 03/24/23 15:04 MDM - SOB/Dyspnea Medical Decision Making No pneumonia no leukocytosis patient is acutely intoxicated. Will discharge home encourage abstinence from alcoholic prescription for albuterol to use as needed also encouraged stop smoking Medical Records I reviewed the patient's medical records. Lab Data I reviewed the patient's lab results. 03/24/23 15:38 03/24/23 15:38 Labs/Radiology: Radiology Impressions Chest X-Ray 03/24/23 15:08 IMPRESSION: No acute findings. Laboratory Results WBC 8.61 10^3/uL (3.29-11.43) 03/24/23 15:38 RBC 5.33 10^6/uL (3.85-5.65) 03/24/23 15:38 Hgb 15.60 g/dL (11.27-16.99) 03/24/23 15:38 Hct 47.1 % (37-53) 03/24/23 15:38 MCV 88.4 fl (82-101) 03/24/23 15:38 MCH 29.3 pg (27-33) 03/24/23 15:38 MCHC 33.1 g/dL (30-55) 03/24/23 15:38 RDW 14.8 % (12.1-15.1) 03/24/23 15:38 Plt Count 226 10^3/cmm (157-399) 03/24/23 15:38 MPV 9.4 fL (7.4-10.4) 03/24/23 15:38 Neut % (Auto) 57.4 % 03/24/23 15:38 Lymph % (Auto) 36.0 % 03/24/23 15:38 [place] % (Auto) 5.1 % 03/24/23 15:38 Eos % (Auto) 0.7 % 03/24/23 15:38 Baso % (Auto) 0.3 % 03/24/23 15:38 Neut # (Auto) 4.94 10^3/uL (1.8-7.7) 03/24/23 15:38 Lymph # (Auto) 3.1 10^3/uL (0.8-4.8) 03/24/23 15:38 [place] # (Auto) 0.4 10^3/uL (0.2-0.9) 03/24/23 15:38 Eos # (Auto) 0.1 10^3/uL (0.0-0.8) 03/24/23 15:38 Baso # (Auto) 0.0 10^3/uL (0.0-0.1) 03/24/23 15:38 Nucleated RBC % (auto) 0 % 03/24/23 15:38 Nucleated RBCs # 0.0 /100WBC 03/24/23 15:38 Sodium 140 mmol/L (136-145) 03/24/23 15:38 Potassium 3.9 mmol/L (3.5-5.1) 03/24/23 15:38 Chloride 105 mmol/L (98-107) 03/24/23 15:38 Carbon Dioxide 25 mmol/L (22-29) 03/24/23 15:38 Anion Gap 13.9 (5-19) 03/24/23 15:38 BUN 12 mg/dL (6-20) 03/24/23 15:38 Creatinine 0.8 mg/dL (0.7-1.2) 03/24/23 15:38 GFR Calculation 107.6 mL/min (90-130) 03/24/23 15:38 Glucose 104 mg/dL (65-115) 03/24/23 15:38 Calculated Osmolality 290 mOsm/kg (285-295) 03/24/23 15:38 Calcium 9.2 mg/dL (8.5-10.5) 03/24/23 15:38 Total Bilirubin 0.2 mg/dL (0.15-1.2) 03/24/23 15:38 AST 15 U/L (0-40) 03/24/23 15:38 ALT 18 U/L (0-41) 03/24/23 15:38 Alkaline Phosphatase 74 U/L (40-130) 03/24/23 15:38 Total Protein 6.9 g/dL (6.6-8.7) 03/24/23 15:38 Albumin 4.4 g/dL (3.5-5.2) 03/24/23 15:38 Globulin 2.5 g/dL (1.3-4.6) 03/24/23 15:38 Ethyl Alcohol 196 mg/dL (0-10) H 03/24/23 15:38 All radiology interpretation(s) finalized by discharge Discharge Plan Discharge Patient Disposition: Home Clinical Impression: Viral URI with cough, Alcohol intoxication Condition: Stable Prescriptions: New albuterol sulfate 90 mcg/actuation HFA aerosol inhaler 2 inh INHALATION Q4H PRN (Reason: shortness of breath or wheezing) Qty: 18 0RF No Action prednisone 20 mg tablet 20 mg PO DAILY Qty: 15 0RF Rx Instructions: 60MG X 3 Days 40MG X 2 Days 20MG X 2 Days cyclobenzaprine 10 mg tablet 10 mg PO TID Qty: 30 0RF aripiprazole 10 mg tablet 10 mg PO DAILY 30 Days Qty: 30 2RF fluoxetine 20 mg capsule 20 mg PO DAILY 30 Days Qty: 30 2RF hydroxyzine pamoate 25 mg capsule 50 mg PO Q6H PRN (Reason: Anxiety) 30 Days Qty: 120 2RF naltrexone 50 mg tablet 50 mg PO DAILY Qty: 30 2RF quetiapine 100 mg tablet 200 mg PO BEDTIME 30 Days Qty: 60 2RF (DME) Nebulizer with hose and supplies See Rx Instructions .Route .MEDSUPPLY Qty: 1 0RF Rx Instructions: q6hrs PRN with albuterol treatment. long-term treatment gabapentin 300 mg capsule 300 mg PO TID 30 Days Qty: 90 2RF pantoprazole 40 mg tablet,delayed release (DR/EC) 40 mg PO DAILY Qty: 30 1RF Ventolin HFA 90 mcg/actuation HFA aerosol inhaler 1 inh inhalation QID PRN (Reason: shortness of breath or wheezing) Qty: 8.5 0RF ondansetron 4 mg tablet,disintegrating 4 mg PO Q8H PRN (Reason: nausea and vomiting) Qty: 14 0RF Symbicort 160-4.5 mcg/actuation HFA aerosol inhaler 1 inh inhalation BID 30 Days Qty: 10.2 1RF naproxen 500 mg tablet 500 mg PO BID Qty: 20 0RF methocarbamol 750 mg tablet 750 mg PO TID Qty: 20 0RF Discharge Orders: Discharge ED (Routine); Ordered 03/24/23 Ordered By: Elver Napoles Referrals: Cornelius Villegas MD [Primary Care Provider] - Discharge Diet: Usual diet Discharge Activity: Increase activity as tolerated Patient Instructions: Alcohol Abuse, Alcohol Intoxication (ED), Viral Syndrome (ED), Opioid Safety, Pain Management Activity Restrictions/Additional Instructions: thank you for choosing [facility] for your healthcare needs today. Please realize this is an emergency room and that we are providing you with a medical screening exam and this may not be complete and all inclusive of all the testing and or work up that you may need to determine your ailment or severity of your illness. It is very important that you follow up as instructed or that you return to the Emergency Department should you have concerns or if your condition changes or worsens in any way. You are seen today for cough and complaints shortness of breath your chest today was normal your labs were normal. Recommend use albuterol as needed stop smoking. You were also acutely intoxicated recommend you abstain from alcohol Coding Level of Care Code ED Nursing Service Director for Julito Brumfield
[2023-03-24 15:54] LABS: Basophils % 0.3 %; Eosinophils # 0.1 10^3/uL (0.0-0.8); Eosinophils % 0.7 %; Hematocrit 47.1 % (37-53); Lymphocytes # 3.1 10^3/uL (0.8-4.8); Mean Corpuscular HGB Conc 33.1 g/dL (30-55); Mean Corpuscular Hemoglobin 29.3 pg (27-33); Mean Corpuscular Volume 88.4 fl (82-101); Mean Platelet Volume 9.4 fL (7.4-10.4); Monocytes # 0.4 10^3/uL (0.2-0.9); Monocytes % 5.1 %; Neutrophils # 4.94 10^3/uL (1.8-7.7); Neutrophils % 57.4 %; Nucleated Red Blood Cells % 0 %; Platelet Count 226 10^3/cmm (157-399); Red Blood Count 5.33 10^6/uL (3.85-5.65); Red Cell Distribution Width 14.8 % (12.1-15.1); White Blood Count 8.61 10^3/uL (3.29-11.43)
[2023-03-24 16:22] VITALS: BP 96/56
[2023-03-24 16:26] LABS: Alanine Aminotransferase 18 U/L (0-41); Albumin Level 4.4 g/dL (3.5-5.2); Alcohol Level 196 mg/dL (0-10); Alkaline Phosphatase 74 U/L (40-130); Anion Gap 13.9 (5-19); Aspartate Amino Transferase 15 U/L (0-40); Blood Urea Nitrogen 12 mg/dL (6-20); Calcium 9.2 mg/dL (8.5-10.5); Carbon Dioxide 25 mmol/L (22-29); Chloride 105 mmol/L (98-107); Creatinine Clr Calc Pharmacy 133.2393; Globulin 2.5 g/dL (1.3-4.6); Glomerular Filtration Rate 107.6 mL/min (90-130); Glucose 104 mg/dL (65-115); Osmolality Calculated 290 mOsm/kg (285-295); Potassium 3.9 mmol/L (3.5-5.1); Sodium 140 mmol/L (136-145); Total Bilirubin 0.2 mg/dL (0.15-1.2); Total Protein 6.9 g/dL (6.6-8.7)
--- NOTE | 2023-03-24 16:32 | PC.NURSE ---
security bedside pt is spitting on floors and becoming very agitated. pt has ripped off monitoring equipment and is pacing halls with security present upset and requests crackers.
[2023-03-24 16:39] VITALS: BP 134/94; PULSE 72; O2SAT 96
== END 2023-03-24 16:40 | disposition home or self-care (01) ==
PROVIDERS: Emergency Provider Family Medicine; PCP Family Medicine
DX: J06.9 Acute upper respiratory infection, unspecified (principal); R05.9 Cough, unspecified; F17.210 Nicotine dependence, cigarettes, uncomplicated; F17.220 Nicotine dependence, chewing tobacco, uncomplicated
CPT/HCPCS: 36415; 71045; 80053; 80307; 85025; 99284

== ENCOUNTER → 2023-08-27 10:52 | Outpatient (BNVA) | payer MEDICARE, MEDICAID, SELFPAY ==
[2023-06-11 08:53] VITALS: BP 151/92; BMI 24.9
== END ==
PROVIDERS: PCP Family Medicine; Visit Provider Student in an Organized Health Care Education/Training Program
DX: M25.562 Pain in left knee (principal)
CPT/HCPCS: 73560; 73565; 99203

== ENCOUNTER 2023-12-18 12:24 | Inpatient (IN) | payer MEDICARE, MEDICAID, SELFPAY ==
[2023-06-11 08:53] VITALS: BP 151/92; BMI 24.9
--- NOTE | 2023-12-18 12:39 | ED.C_ITS ---
HPI - Psych 2 General: Chief Complaint: Psychiatric Symptoms Stated Complaint: reginaldo mueller 89 Time Seen by Provider: 12/18/23 12:35 Source: patient Mode of arrival: ambulatory Limitations: no limitations History of Present Illness: This patient presented to the Emergency Department voluntarily because he needs help. He states that a lot of stressors over his estranged children have precipitated him feeling angry and wanting to hurt himself or hurt someone else. He also admits to drinking some alcohol today. He states that he has not taken his prescribed medication for some time and that is probably a precipitating factor as well. MD complaint: suicidal ideation and feels depressed Context: recent alcohol abuse and not taking psychiatric medications Associated symptoms: Reports depression, homicidal ideation and suicidal ideation; Deny auditory hallucinations or visual hallucinations If self harm: admits thoughts of self harm Related Data Previous Rx's Medication Instructions Recorded Nebulizer with hose and supplies #1 ea 01/18/23 albuterol sulfate 90 mcg/actuation 2 inh inhalation Q4H PRN shortness 08/05/23 aerosol inhaler of breath or wheezing #18 grams aripiprazole 10 mg tablet 10 mg PO DAILY 30 days #30 tabs 11/11/23 budesonide-formoterol HFA 160 1 inh inhalation BID 30 days #10.2 11/11/23 mcg-4.5 mcg/actuation aerosol grams inhaler (Symbicort) Allergies Allergy/AdvReac Type Severity Reaction Status Date / Time No Known Allergies Allergy Verified 11/11/23 11:10 Review of Systems 2 General: Reports: 10 or more systems reviewed and unremarkable except in HPI and below Const: Denies: fever(s), chills or change in appetite ENMT: Denies: odynophagia or nasal discharge Card: Denies: chest pain or palpitations Resp: Denies: productive cough or non-productive cough GI: Denies: nausea, vomiting or diarrhea : Denies: difficulty urinating or dysuria Musc: Denies: neck pain, back pain or extremity pain Skin/Breast: Denies: rash Neuro: Denies: headache(s), numbness in extremities or weakness in extremities Psych: Reports: anxiety, depression, mood swings, suicidal ideation and homicidal ideation; Denies: visual hallucinations, auditory hallucinations or tactile hallucinations PFSH ED 2 PFSH: Medical History Severe alcohol use disorder Arthritis History of broken collarbone surgically repaired x2 Tobacco use disorder, moderate, dependence No pertinent family history Lumbar stenosis with neurogenic claudication Psychiatric care Chronic pain Surgical History History of back surgery Family History Mother Diabetes Alpha galactosidase deficiency Lung disease copd, emphysema Other Hypertension Psychiatric illness Stroke Denies family history of CAD (coronary artery disease) Clotting disorder Dementia Hyperlipidemia Chronic kidney disease (CKD) Anesthesia complication Bleeding disorder Cancer Social History Smoking and tobacco/nicotine status: current every day tobacco/nicotine user cigarettes Packs smoked per day: 0.25 Years cigarettes smoked: 20 and smokeless tobacco Smokeless tobacco user: chewing tobacco Smokeless tobacco details: 1 can per week Quit status (tobacco/nicotine): has tried quititng Number of times tried to quit tobacco: 6 Second hand smoke exposure: Yes Alcohol intake: former Substance/Drug Use: current Substance/Drug use frequency: daily Other substance/drug use details: 05/13 last a month Adopted: No Caregiver/support person: No Lives independently: Yes Household members: spouse Housing: Other Details: [id number] Marital status: Number of children: 2 Number of grandchildren: 0 Highest education level completed: 10th Grade service: No Current occupational status: disabled Current occupational exposures/hazards: No Pets and animals: Yes Pets & animals: cat(s) Pets & animal details: BB Leisure activites: other Leisure activities details: TV, you tube, forging knives Sexually active: Yes Do you think of yourself as: Straight/Heterosexual Current gender identity: Male Marely/Spiritism: None Special marley needs: No Agree to transfusion: Yes Physical Exam 2 Narrative: EXAM NARRATIVE: The patient makes good eye contact. He is somewhat animated moving about the examination room but will engage and speak but speaks in a rather pressured speech with some light of ideas Const: COMMON NORMALS: average body habitus, patient oriented x3 and alert GENERAL APPEARANCE: cooperative and anxious HENMT: COMMON NORMALS: normocephalic and Normal nasal mucous membranes and turbinates present HEAD & SCALP: normocephalic FACE & SINUS: normal facial exam NOSE: Normal nasal mucous membranes and turbinates present Eye: COMMON NORMALS: Equal, round and reactive pupils present, EOMs intact bilaterally and conjunctivae normal CONJUNCTIVA: Yes conjunctivae normal P UPIL: Yes Equal, round and reactive pupils present Neck/C-Spine: COMMON NORMALS: full ROM Chest: COMMONS NORMALS: normal inspection of the chest Resp: COMMON NORMALS: normal respiratory effort, No retractions and No use of accessory muscles EFFORT & INSPECTION: Yes able to speak in complete sentences Cardio: COMMON NORMALS: regular rhythm, No murmurs present (Cardio) and Peripheral pulses 2+ throughout RHYTHM: regular rhythm PERIPHERAL PULSES: Peripheral pulses 2+ throughout GI: COMMON NORMALS: Normal to inspection, nondistended, normoactive bowel sounds present : COMMON NORMALS: Yes no CVA tenderness BLADDER/KIDNEY EXAM: Yes no CVA tenderness Back/Pelvis: COMMON NORMALS: no CVA tenderness, thoracic and lumbar spine normal to inspection, no thoracic nor lumbar tenderness and thoraco-lumbar ROM normal Extremity: COMMON NORMALS: normal to inspection, full ROM, capillary refill normal and no calf tenderness Neuro: COMMON NORMALS: patient oriented x3, moves all extremities, no focal motor deficits and no sensory deficits noted SENSORIUM/ORIENTATION: Yes alert Psych: APPEARANCE: Yes grossly normal ATTITUDE: Yes engaged A CTIVITY/MOTOR BEHAVIOR: Yes appropriate eye contact and Yes psychomotor agitation SPEECH: Yes rapid MOOD & AFFECT: Yes anxious and Yes tearful THOUGHT PROCESS: disorganized INSIGHT: Fair insight present (Psych) J UDGEMENT: Fair judgement present (Psych) Skin: COMMON NORMALS: no rashes or lesions noted and no wounds GENERAL SKIN EXAM: no rashes or lesions noted Course 2 Reevaluation(s): Reevaluation #1: The patient did voice thoughts of harming others as well as ideations of self- harm. His risk is indeterminate given his current heightened emotional state therefore 96-hour hold was placed Time: 13:08 Reevaluation #2: Patient remained calm and cooperative. He is being admitted to psychiatric services. Time: 13:49 Consultations: Consultation #1: Discussed with Dr. Bay who agreed to admit him. Vital Signs: Vital signs: Vital Signs Temperature 98.1 F 12/18/23 12:43 Pulse Rate 114 H 12/18/23 12:43 Respiratory Rate 20 H 12/18/23 12:43 Blood Pressure 153/99 12/18/23 12:43 Pulse Oximetry 99 12/18/23 12:43 Oxygen Delivery Me thod Room Air 12/18/23 12:43 MDM - Psych Medical Decision Making This patient presented as noted in the HPI. Longstanding history of recurrent alcohol use disorder issues as well as known drug use. Presented with acute feelings of sadness tearfulness and thoughts of harm to self and others. He presented voluntarily to the emergency department because he sought help with. His clinical exam revealed him to be alternating tearful and pressured in his speech and affect. He expressed thoughts of harm to ex-'s significant other as well as potential thoughts of harm to self with nonspecific and those endeavors. He admittedly not taking any of his medications recently and had used alcohol recently. His risk to self and others is indeterminate based upon his current emergency department presentation and certainly not at the point where we are able to make a safe disposition from the emergency department and will need more extensive mental health evaluation. No significant precluding mental condition at this time that would delay that process. Will plan on admitting to neuropsychiatric unit for further evaluation. Differential Diagnosis Likely suicidal ideation, bipolar disorder, depression and acute anxiety Lab Data I reviewed the patient's lab results. 12/18/23 12:52 12/18/23 12:52 Laboratory Results WBC 7.68 10^3/uL (3.29-11.43) 12/18/23 12:52 RBC 5.37 10^6/uL (3.85-5.65) 12/18/23 12:52 Hgb 15.90 g/dL (11.27-16.99) 12/18/23 12:52 Hct 47.8 % (37-53) 12/18/23 12:52 MCV 89.0 fl (82-101) 12/18/23 12:52 MCH 29.6 pg (27-33) 12/18/23 12:52 MCHC 33.3 g/dL (30-55) 12/18/23 12:52 RDW 14.2 % (12.1-15.1) 12/18/23 12:52 Plt Count 289 10^3/cmm (157-399) 12/18/23 12:52 MPV 9.1 fL (7.4-10.4) 12/18/23 12:52 Neut % (Auto) 46.0 % 12/18/23 12:52 Lymph % (Auto) 45.2 % 12/18/23 12:52 [place] % (Auto) 6.0 % 12/18/23 12:52 Eos % (Auto) 1.7 % 12/18/23 12:52 Baso % (Auto) 0.7 % 12/18/23 12:52 Neut # (Auto) 3.54 10^3/uL (1.8-7.7) 12/18/23 12:52 Lymph # (Auto) 3.5 10^3/uL (0.8-4.8) 12/18/23 12:52 [place] # (Auto) 0.5 10^3/uL (0.2-0.9) 12/18/23 12:52 Eos # (Auto) 0.1 10^3/uL (0.0-0.8) 12/18/23 12:52 Baso # (Auto) 0.1 10^3/uL (0.0-0.1) 12/18/23 12:52 Nucleated RBC % (auto) 0 % 12/18/23 12:52 Nucleated RBCs # 0.0 /100WBC 12/18/23 12:52 Sodium 143 mmol/L (136-145) 12/18/23 12:52 Potassium 4.3 mmol/L (3.5-5.1) 12/18/23 12:52 Chloride 106 mmol/L (98-107) 12/18/23 12:52 Carbon Dioxide 24 mmol/L (22-29) 12/18/23 12:52 Anion Gap 17.3 (5-19) 12/18/23 12:52 BUN 12 mg/dL (6-20) 12/18/23 12:52 Creatinine 0.9 mg/dL (0.7-1.2) 12/18/23 12:52 GFR Calculation 93.5 mL/min (90-130) 12/18/23 12:52 Glucose 107 mg/dL (65-115) 12/18/23 12:52 Calculated Osmolality 296 mOsm/kg (285-295) H 12/18/23 12:52 Calcium 9.1 mg/dL (8.5-10.5) 12/18/23 12:52 Total Bilirubin 0.3 mg/dL (0.15-1.2) 12/18/23 12:52 AST 20 U/L (0-40) 12/18/23 12:52 ALT 16 U/L (0-41) 12/18/23 12:52 Alkaline Phosphatase 81 U/L (40-130) 12/18/23 12:52 Total Protein 7.4 g/dL (6.6-8.7) 12/18/23 12:52 Albumin 4.6 g/dL (3.5-5.2) 12/18/23 12:52 Globulin 2.8 g/dL (1.3-4.6) 12/18/23 12:52 Salicylates < 0.3 mg/dL (3-10) L 12/18/23 12:52 Urine Opiates Screen Negative ng/mL (Negative) 12/18/23 12:46 Acetaminophen < 5.0 ug/mL (10-30) L 12/18/23 12:52 Ur Barbiturates Screen Negative ng/mL (Negative) 12/18/23 12:46 Ur Phencyclidine Scrn Negative ng/mL (Negative) 12/18/23 12:46 Ur Amphetamines Screen Negative ng/mL (Negative) 12/18/23 12:46 U Benzodiazepines Scrn Negative ng/mL (Negative) 12/18/23 12:46 Urine Cocaine Screen Negative ng/mL (Negative) 12/18/23 12:46 U Marijuana (THC) Screen Negative ng/mL (Negative) 12/18/23 12:46 Ethyl Alcohol 199 mg/dL (0-10) H 12/18/23 12:52 No radiology studies performed this visit Discharge Plan Discharge Patient Disposition: Admitted As Inpatient Clinical Impression: Depression, Suicidal ideation, Alcohol use disorder Condition: Stable Coding Level of Care Code ED Vocational Nursing Instructor for Julito Brumfield
[2023-12-18 12:43] VITALS: BP 153/99; PULSE 114; RESP 20; TEMP 36.7; O2SAT 99
[2023-12-18] MEDS: LORazepam 2 mg Tablet PO (12:50)
[2023-12-18 12:59] LABS: Basophils # 0.1 10^3/uL (0.0-0.1); Basophils % 0.7 %; Eosinophils # 0.1 10^3/uL (0.0-0.8); Eosinophils % 1.7 %; Hematocrit 47.8 % (37-53); Lymphocytes # 3.5 10^3/uL (0.8-4.8); Lymphocytes % 45.2 %; Mean Corpuscular HGB Conc 33.3 g/dL (30-55); Mean Corpuscular Hemoglobin 29.6 pg (27-33); Mean Platelet Volume 9.1 fL (7.4-10.4); Monocytes # 0.5 10^3/uL (0.2-0.9); Neutrophils # 3.54 10^3/uL (1.8-7.7); Nucleated Red Blood Cells % 0 %; Platelet Count 289 10^3/cmm (157-399); Red Blood Count 5.37 10^6/uL (3.85-5.65); Red Cell Distribution Width 14.2 % (12.1-15.1); White Blood Count 7.68 10^3/uL (3.29-11.43)
[2023-12-18 13:16] LABS: Alanine Aminotransferase 16 U/L (0-41); Albumin Level 4.6 g/dL (3.5-5.2); Alcohol Level 199 mg/dL (0-10); Alkaline Phosphatase 81 U/L (40-130); Anion Gap 17.3 (5-19); Aspartate Amino Transferase 20 U/L (0-40); Blood Urea Nitrogen 12 mg/dL (6-20); Calcium 9.1 mg/dL (8.5-10.5); Carbon Dioxide 24 mmol/L (22-29); Chloride 106 mmol/L (98-107); Globulin 2.8 g/dL (1.3-4.6); Glomerular Filtration Rate 93.5 mL/min (90-130); Glucose 107 mg/dL (65-115); Osmolality Calculated 296 mOsm/kg (285-295); Potassium 4.3 mmol/L (3.5-5.1); Sodium 143 mmol/L (136-145); Total Bilirubin 0.3 mg/dL (0.15-1.2); Total Protein 7.4 g/dL (6.6-8.7)
[2023-12-18 13:20] LABS: Amphetamines Screen Urine Negative (Negative); Barbiturates Screen Urine Negative (Negative); Benzodiazepines Screen Urine Negative (Negative); Cocaine Screen Urine Negative (Negative); Opiate Screen Urine Negative (Negative); PCP Screen Urine Negative (Negative); THC Screen Urine Negative (Negative)
[2023-12-18 13:20] LABS: Acetaminophen < 5.0 ug/mL (10-30); Salicylate < 0.3 mg/dL (3-10)
--- NOTE | 2023-12-18 13:46 | PC.PHAR ---
PT UNABLE TO VERIFY MEDICATIONS; PT HAS NON CURRENT MEDICATIONS: QUETIAPINE 100MG 2 TABLETS AT BEDTIME LAST FILL 07/25/23 30DS, FLUOXETINE 20MG DAILY LAST FILL 07/25/23 30DS, NALTREXONE 50MG DAILY LAST FILL 06/28/23 30DS, PROPRANOLOL 20MG TWICE DAILY NEEDED FOR ANXIETY LAST FILL 06/28/23 30DS, AND HYDROXYZINE PAMOATE 25MG 2 CAPSULES EVERY 6 HOURS NEEDED FOR ANXIETY LAST FILL 06/28/23 15DS. ALL FILLED AT [facility].
[2023-12-18 13:50] VITALS: BP 121/89; PULSE 109; RESP 18; TEMP 36.6; O2SAT 97
[2023-12-18 14:00] VITALS: BP 121/89; PULSE 109; RESP 18; TEMP 36.6; O2SAT 97
[2023-12-18 14:52] VITALS: BP 153/99; PULSE 114; RESP 20; TEMP 36.7; O2SAT 99
--- NOTE | 2023-12-18 16:15 | PC.NURSE ---
Patient arrived to the neuropsych unit obviously still inebriated. BAL reported to be 199. Patient slurring his words and confused. When asked what year it was he replied, Trump 2018! He said he quit taking all of his medications last year and that the Dr. Villegas looked at him and said, you're getting ready to fuck up, man. He then call Dr. Villegas a very good bob, a very good doctor. Patient said today he got into an argument with his ex- and her boyfriend over him being able to see his daughter. He admits to threatening her boyfriend and said, I threatened genocide on both of their names. Patient says once they left he began drinking, had a couple of shooters, and 1 pint of [place] Honey. He denies si at this time.
[2023-12-18 19:18] VITALS: BP 148/80; PULSE 119; RESP 18; TEMP 36.7; O2SAT 94
[2023-12-19] VITALS (7 sets, daily range): BP systolic 135–158; BP diastolic 70–103; PULSE 74–114; RESP 16–18; TEMP 36.4–36.8; O2SAT 95–98
[2023-12-19] MEDS: thiamine 100 mg Tablet PO (08:03)
[2023-12-19] MEDS: multivitamin therapeutic Tablet 1 TAB PO (08:03)
[2023-12-19] MEDS: LORazepam 2 mg Tablet PO ×2 (08:03→12:03)
[2023-12-19] MEDS: folic acid 1 mg Tablet PO (08:03)
[2023-12-19] MEDS: nicotine 2 mg Gum BUCCAL ×2 (09:57→14:12)
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
[2023-12-19] MEDS: trazodone 50 mg Tablet PO ×2 (21:33→22:36)
[2023-12-20 04:00] VITALS: BP 122/79; PULSE 76; RESP 18; O2SAT 98
[2023-12-20 07:53] VITALS: BP 127/79; PULSE 107; RESP 16; TEMP 37.1; O2SAT 96
[2023-12-20] MEDS: multivitamin therapeutic Tablet 1 TAB PO (08:09)
[2023-12-20] MEDS: folic acid 1 mg Tablet PO (08:09)
[2023-12-20] MEDS: thiamine 100 mg Tablet PO (08:09)
--- NOTE | 2023-12-20 13:55 | P.NPUPN_ITS ---
Subjective NPU 2 Subjective: Patient presented today reporting that he is doing okay. He reports that he has been speaking with his and that she expressed some concerns about his situation. He reports also speaking with his uncle about the possibility of discharging there when he is done to try to make sure that the alcohol use is in the past. We discussed the possibility of the Vivitrol injection and we agreed that we would see tomorrow if it something we could procure. He denied any side effects to the medication. Mental Status Exam 2 MSE Comments: This is a well-nourished, well-developed white male in hospital scrubs with limited grooming and eye contact. No abnormal movements except for mild psychomotor retardation. Cooperative exam in mild distress. Speech was normal rate decreased volume. Mood described as a little better than yesterday., affect anxious. Thought process organized. Thought content: Patient denied suicidal or homicidal ideation, there are no delusions reported or noted, he denied any auditory or visual hallucinations. The patient denied having any thoughts of hurting himself or others. He also denied feeling paranoid or hearing voices. He seemed to be struggling with his current family situation and expressed frustration about it. Attention and concentration were intact and memory appeared reliable but none were formally tested. He is alert and oriented x3. Insight and judgment are limited but impulse control is impaired. Vitals/I&O/Wt Last Vital Signs Temp 98.8 F 12/20/23 07:53 Pulse 107 H 12/20/23 07:53 Resp 16 12/20/23 07:53 BP 127/79 12/20/23 07:53 Pulse Ox 96 12/20/23 07:53 O2 Del Method Room Air 12/20/23 07:53 Data NPU 12/18/23 12:52 12/18/23 12:52 A&P Assessment and plan (1) Suicidal ideation: (2) Chronic post-traumatic stress disorder: (3) Major depressive disorder, recurrent severe without psychotic features: (4) Generalized anxiety disorder: (5) Nicotine dependence, unspecified, uncomplicated: (6) Methamphetamine use disorder, severe, in sustained remission: (7) Cannabis use disorder, severe, dependence: (8) Opioid use disorder, severe, in sustained remission: Plan This is a 38-year-old white male with a long history of depression, addiction and mental health issues known through past hospitalizations who presents again reporting continued significant psychosocial stressors due to multiple family concerns but downplayed continued addiction. The patient appears to be dealing with significant stress related to his family situation. He has been maintaining sobriety from meth and cannabis but admits to drinking alcohol. He has stopped taking his prescribed medication and is considering starting again. 1. Continue current medications. We will work to restart medications. 2. Continue every 15 minute checks for safety. 3. Encourage individual, group and milieu therapies. 4. Encourage sober living treatment after discharge at the hospital care to which he is willing to commit. Involuntary Hold Information 2 96 Hour Hold: 96 Hour Involuntary Admission: Yes 96 Hour Hold Ending Date: 12/24/23 96 Hour Hold Ending Time: 12:45 Attestations NPU 2 Medical Necessity Statement*: Inpatient hospitalization is medically necessary and the clinically appropriate intervention at this time. We will initiate medications and make changes as indicated. Likely length of stay 3-5 days. Coding Level of Care Code Acute Code for [facility] Fwd Diagnoses Suicidal ideation R45.851 Chronic post-traumatic stress disorder F43.12 Major depressive disorder, recurrent severe without psychotic features F33.2 Generalized anxiety disorder F41.1 Nicotine dependence, unspecified, uncomplicated F17.200 Methamphetamine use disorder, severe, in sustained remission F15.21 Cannabis use disorder, severe, dependence F12.20 Opioid use disorder, severe, in sustained remission F11.21
--- NOTE | 2023-12-20 15:00 | DCPLANNER ---
. IMM was printed and rights given to pt and copy placed in his file.
[2023-12-20 15:28] VITALS: BP 158/92; PULSE 99; RESP 16; TEMP 36.6; O2SAT 98
--- NOTE | 2023-12-20 18:33 | PC.NURSE ---
Patient's room searched by staff for contraband; no contraband found. patient cooperative with search of room
[2023-12-20 20:00] VITALS: BP 147/82; PULSE 125; RESP 18; O2SAT 96
[2023-12-20] MEDS: trazodone 50 mg Tablet PO (20:10)
[2023-12-21] VITALS: BP 124/74; PULSE 64; RESP 16; O2SAT 97
[2023-12-21 04:00] VITALS: BP 134/77; PULSE 64; RESP 17; TEMP 36.6; O2SAT 97
[2023-12-21 07:30] VITALS: BP 114/80; PULSE 83; RESP 16; TEMP 36.7; O2SAT 97
[2023-12-21] MEDS: thiamine 100 mg Tablet PO (08:29)
[2023-12-21] MEDS: multivitamin therapeutic Tablet 1 TAB PO (08:29)
[2023-12-21] MEDS: folic acid 1 mg Tablet PO (08:29)
[2023-12-21 11:24] VITALS: BP 135/90; PULSE 83; RESP 16; TEMP 36.6; O2SAT 97
[2023-12-21 13:33] VITALS: BP 125/81; PULSE 72; RESP 16; TEMP 36.6; O2SAT 97
[2023-12-21 15:02] VITALS: BMI 26.2
--- NOTE | 2023-12-21 16:55 | W.PM.NPUPNS ---
Subjective NPU Subjective: Patient presented today reporting he is doing okay. He has some paperwork from his divorce that he wanted to sell me which clearly does show an air in the social security number in the document. It was unclear why he felt this was so important but it 1 thing that he brought up the day before and wanted to show me and had a significant other bring this to the hospital. We discussed the importance of him getting reconnected with services. He denied any side effects to medications and we agreed we would try to get the Vivitrol injection but he understood that it may have to be administered by the crisis stabilization center or other outside entity. Mental Status Exam MSE Comments: This is a well-nourished, well-developed white male in hospital scrubs with limited grooming and eye contact. No abnormal movements except for mild psychomotor retardation. Cooperative exam in mild distress. Speech was normal rate decreased volume. Mood described as a little better, affect anxious. Thought process organized. Thought content: Patient denied suicidal or homicidal ideation, there are no delusions reported or noted, he denied any auditory or visual hallucinations. The patient denied having any thoughts of hurting himself or others. He also denied feeling paranoid or hearing voices. He seemed to be struggling with his current family situation and expressed frustration about it. Attention and concentration were intact and memory appeared reliable but none were formally tested. He is alert and oriented x3. Insight and judgment are limited but impulse control is impaired. Vitals/I&O/Wt Last Vital Signs Temp 98 F 12/21/23 13:33 Pulse 72 12/21/23 13:33 Resp 16 12/21/23 13:33 BP 125/81 12/21/23 13:33 Pulse Ox 97 12/21/23 13:33 O2 Del Method Room Air 12/21/23 13:33 Weight last 48 hrs Weight 80.853 kg Weight 80.739 kg Data NPU 12/18/23 12:52 12/18/23 12:52 A&P Assessment and plan (1) Suicidal ideation: (2) Chronic post-traumatic stress disorder: (3) Major depressive disorder, recurrent severe without psychotic features: (4) Generalized anxiety disorder: (5) Nicotine dependence, unspecified, uncomplicated: (6) Methamphetamine use disorder, severe, in sustained remission: (7) Cannabis use disorder, severe, dependence: (8) Opioid use disorder, severe, in sustained remission: Plan This is a 38-year-old white male with a long history of depression, addiction and mental health issues known through past hospitalizations who presents again reporting continued significant psychosocial stressors due to multiple family concerns but downplayed continued addiction. The patient appears to be dealing with significant stress related to his family situation. He has been maintaining sobriety from meth and cannabis but admits to drinking alcohol. He has stopped taking his prescribed medication and is considering starting again. 1. Continue current medications. We will work to restart medications. 2. Continue every 15 minute checks for safety. 3. Encourage individual, group and milieu therapies. 4. Encourage sober living treatment after discharge at the hospital care to which he is willing to commit. Involuntary Hold Information 96 Hour Hold: 96 Hour Involuntary Admission: Yes 96 Hour Hold Ending Date: 12/24/23 96 Hour Hold Ending Time: 12:45 Attestations NPU Medical Necessity Statement*: Inpatient hospitalization is medically necessary and the clinically appropriate intervention at this time. We will initiate medications and make changes as indicated. Likely length of stay 2-4 days. Coding Level of Care Code Acute Code for [facility] Fwd Diagnoses Suicidal ideation R45.851 Chronic post-traumatic stress disorder F43.12 Major depressive disorder, recurrent severe without psychotic features F33.2 Generalized anxiety disorder F41.1 Nicotine dependence, unspecified, uncomplicated F17.200 Methamphetamine use disorder, severe, in sustained remission F15.21 Cannabis use disorder, severe, dependence F12.20 Opioid use disorder, severe, in sustained remission F11.21
[2023-12-21 21:00] VITALS: BP 169/101; PULSE 83; RESP 18; TEMP 36.6; O2SAT 98
[2023-12-22 06:00] VITALS: BP 136/87; PULSE 75; RESP 18; O2SAT 99
[2023-12-22] MEDS: multivitamin therapeutic Tablet 1 TAB PO (09:27)
[2023-12-22] MEDS: folic acid 1 mg Tablet PO (09:27)
[2023-12-22] MEDS: thiamine 100 mg Tablet PO (09:27)
--- NOTE | 2023-12-22 10:11 | P.NPUPN_ITS ---
Subjective NPU 2 Subjective: Patient presented today reporting that he is feeling better. He endorsed optimism about being discharged tomorrow and was happy we were able to obtain the Vivitrol injection. We discussed the process by which he will get the injection administered. We discussed him being discharged earlier in the day to help him achieve his goal of being able to work a full day tomorrow. He denied any side effects to the medications. Mental Status Exam 2 MSE Comments: This is a well-nourished, well-developed white male in hospital scrubs with limited grooming and eye contact. No abnormal movements except for mild psychomotor retardation. Cooperative exam in mild distress. Speech was normal rate decreased volume. Mood described as a little better, affect anxious. Thought process organized. Thought content: Patient denied suicidal or homicidal ideation, there are no delusions reported or noted, he denied any auditory or visual hallucinations. The patient denied having any thoughts of hurting himself or others. He also denied feeling paranoid or hearing voices. He seemed to be struggling with his current family situation and expressed frustration about it. Attention and concentration were intact and memory appeared reliable but none were formally tested. He is alert and oriented x3. Insight and judgment are limited but impulse control is impaired. Vitals/I&O/Wt Last Vital Signs Temp 97.8 F 12/21/23 21:00 Pulse 75 12/22/23 06:00 Resp 18 12/22/23 06:00 BP 136/87 12/22/23 06:00 Pulse Ox 99 12/22/23 06:00 O2 Del Method Room Air 12/21/23 13:33 Weight last 48 hrs Weight 80.853 kg Weight 80.739 kg Data NPU 12/18/23 12:52 12/18/23 12:52 A&P Assessment and plan (1) Suicidal ideation: (2) Chronic post-traumatic stress disorder: (3) Major depressive disorder, recurrent severe without psychotic features: (4) Generalized anxiety disorder: (5) Nicotine dependence, unspecified, uncomplicated: (6) Methamphetamine use disorder, severe, in sustained remission: (7) Cannabis use disorder, severe, dependence: (8) Opioid use disorder, severe, in sustained remission: Plan This is a 38-year-old white male with a long history of depression, addiction and mental health issues known through past hospitalizations who presents again reporting continued significant psychosocial stressors due to multiple family concerns but downplayed continued addiction. The patient appears to be dealing with significant stress related to his family situation. He has been maintaining sobriety from meth and cannabis but admits to drinking alcohol. He has stopped taking his prescribed medication and is considering starting again. 1. Continue current medications. We will work to restart medications. Able to obtain the Vivitrol injection and will have him go to crisis stabilization center to get the injection prior to going home tomorrow. 2. Continue every 15 minute checks for safety. 3. Encourage individual, group and milieu therapies. 4. Encourage sober living treatment after discharge at the hospital care to which he is willing to commit. Involuntary Hold Information 2 96 Hour Hold: 96 Hour Involuntary Admission: Yes 96 Hour Hold Ending Date: 12/24/23 96 Hour Hold Ending Time: 12:45 Attestations NPU 2 Medical Necessity Statement*: Inpatient hospitalization is medically necessary and the clinically appropriate intervention at this time. We will initiate medications and make changes as indicated. Likely length of stay 1-3 days. Coding Level of Care Code Acute Code for [facility] Fwd Diagnoses Suicidal ideation R45.851 Chronic post-traumatic stress disorder F43.12 Major depressive disorder, recurrent severe without psychotic features F33.2 Generalized anxiety disorder F41.1 Nicotine dependence, unspecified, uncomplicated F17.200 Methamphetamine use disorder, severe, in sustained remission F15.21 Cannabis use disorder, severe, dependence F12.20 Opioid use disorder, severe, in sustained remission F11.21
[2023-12-22 13:01] VITALS: BP 121/80; PULSE 85; RESP 16; TEMP 36.9; O2SAT 97
[2023-12-22 20:35] VITALS: BP 150/110; PULSE 84; RESP 18; TEMP 37; O2SAT 97
[2023-12-22 21:32] VITALS: BP 131/84
[2023-12-23 06:00] VITALS: BP 135/87; PULSE 68; RESP 18; O2SAT 99
[2023-12-23] MEDS: multivitamin therapeutic Tablet 1 TAB PO (09:05)
[2023-12-23] MEDS: thiamine 100 mg Tablet PO (09:05)
[2023-12-23] MEDS: folic acid 1 mg Tablet PO (09:05)
[2023-12-23 11:34] VITALS: BP 135/87; PULSE 68; RESP 18; O2SAT 99
--- NOTE | 2023-12-23 13:47 | P.NPUDS_ITS ---
Diagnoses at Discharge Discharge Diagnosis (1) Suicidal ideation: Status: Resolved (2) Chronic post-traumatic stress disorder: Status: Acute (3) Major depressive disorder, recurrent severe without psychotic features: Status: Acute (4) Generalized anxiety disorder: Status: Acute (5) Nicotine dependence, unspecified, uncomplicated: Status: Acute (6) Methamphetamine use disorder, severe, in sustained remission: Status: Acute (7) Cannabis use disorder, severe, dependence: Status: Chronic (8) Opioid use disorder, severe, in sustained remission: Status: Acute Reason for Visit Reason for Visit: si- wants 96 Involuntary Hold Information 96 Hour Hold: 96 Hour Involuntary Admission: Yes 96 Hour Hold Ending Date: 12/24/23 96 Hour Hold Ending Time: 12:45 Mental Status Exam MSE Comments: This is a well-nourished, well-developed white male in hospital scrubs with limited grooming and eye contact. No abnormal movements except for mild psychomotor retardation. Cooperative exam in mild distress. Speech was normal rate decreased volume. Mood described as a little better, affect anxious. Thought process organized. Thought content: Patient denied suicidal or homicidal ideation, there are no delusions reported or noted, he denied any auditory or visual hallucinations. The patient denied having any thoughts of hurting himself or others. He also denied feeling paranoid or hearing voices. He seemed to be struggling with his current family situation and expressed frustration about it. Attention and concentration were intact and memory appeared reliable but none were formally tested. He is alert and oriented x3. Insight and judgment are limited but impulse control is impaired. Discharge Data Studies Completed and Pending: Laboratory Results WBC 7.68 10^3/uL (3.2 9-11.43) 12/18/23 12:52 RBC 5.37 10^6/uL (3.8 5-5.65) 12/18/23 12:52 Hgb 15.90 g/dL (11.27 -16.99) 12/18/23 12:52 Hct 47.8 % (37-53) 12/18/23 12:52 MCV 89.0 fl (82-101) 12/18/23 12:52 MCH 29.6 pg (27-33) 12/18/23 12:52 MCHC 33.3 g/dL (30-55) 12/18/23 12:52 RDW 14.2 % (12.1-15.1 ) 12/18/23 12:52 Plt Count 289 10^3/cmm (157 -399) 12/18/23 12:52 MPV 9.1 fL (7.4-10.4) 12/18/23 12:52 Neut % (Auto) 46.0 % 12/18/23 12:52 Lymph % (Auto) 45.2 % 12/18/23 12:52 Williamson % (Auto) 6.0 % 12/18/23 12:52 Eos % (Auto) 1.7 % 12/18/23 12:52 Baso % (Auto) 0.7 % 12/18/23 12:52 Neut # (Auto) 3.54 10^3/uL (1.8 -7.7) 12/18/23 12:52 Lymph # (Auto) 3.5 10^3/uL (0.8- 4.8) 12/18/23 12:52 Williamson # (Auto) 0.5 10^3/uL (0.2- 0.9) 12/18/23 12:52 Eos # (Auto) 0.1 10^3/uL (0.0- 0.8) 12/18/23 12:52 Baso # (Auto) 0.1 10^3/uL (0.0- 0.1) 12/18/23 12:52 Nucleated RBC % (a uto) 0 % 12/18/23 12:52 Nucleated RBCs # 0.0 /100WBC 12/18/23 12:52 Sodium 143 mmol/L (136-1 45) 12/18/23 12:52 Potassium 4.3 mmol/L (3.5-5 .1) 12/18/23 12:52 Chloride 106 mmol/L (98-10 7) 12/18/23 12:52 Carbon Dioxide 24 mmol/L (22-29) 12/18/23 12:52 Anion Gap 17.3 (5-19) 12/18/23 12:52 BUN 12 mg/dL (6-20) 12/18/23 12:52 Creatinine 0.9 mg/dL (0.7-1. 2) 12/18/23 12:52 GFR Calculation 93.5 mL/min (90-1 30) 12/18/23 12:52 Glucose 107 mg/dL (65-115 ) 12/18/23 12:52 Calculated Osmolal ity 296 mOsm/kg (285- 295) H 12/18/23 12:52 Calcium 9.1 mg/dL (8.5-10 .5) 12/18/23 12:52 Total Bilirubin 0.3 mg/dL (0.15-1 .2) 12/18/23 12:52 AST 20 U/L (0-40) 12/18/23 12:52 ALT 16 U/L (0-41) 12/18/23 12:52 Alkaline Phosphata se 81 U/L (40-130) 12/18/23 12:52 Total Protein 7.4 g/dL (6.6-8.7 ) 12/18/23 12:52 Albumin 4.6 g/dL (3.5-5.2 ) 12/18/23 12:52 Globulin 2.8 g/dL (1.3-4.6 ) 12/18/23 12:52 Salicylates < 0.3 mg/dL (3-10 ) L 12/18/23 12:52 Urine Opiates Scre en Negative ng/mL (N egative) 12/18/23 12:46 Acetaminophen < 5.0 ug/mL (10-3 0) L 12/18/23 12:52 Ur Barbiturates Sc reen Negative ng/mL (N egative) 12/18/23 12:46 Ur Phencyclidine S crn Negative ng/mL (N egative) 12/18/23 12:46 Ur Amphetamines Sc reen Negative ng/mL (N egative) 12/18/23 12:46 U Benzodiazepines Scrn Negative ng/mL (N egative) 12/18/23 12:46 Urine Cocaine Scre en Negative ng/mL (N egative) 12/18/23 12:46 U Marijuana (THC) Screen Negative ng/mL (N egative) 12/18/23 12:46 Ethyl Alcohol 199 mg/dL (0-10) H 12/18/23 12:52 Vitals: Last Vital Signs Temp 98.6 F 12/22/23 20:35 Pulse 68 12/23/23 11:34 Resp 18 12/23/23 11:34 BP 135/87 12/23/23 11:34 Pulse Ox 99 12/23/23 11:34 O2 Del Method Room Air 12/22/23 13:01 Discharge Plan Discharge Patient Disposition: Home Condition: Stable Prescriptions: New Vitamin B-1 (mononitrate) 100 mg Tablet 100 mg PO DAILY 30 Days Qty: 30 1RF Continued (DME) Nebulizer with hose and supplies See Rx Instructions .Route .MEDSUPPLY Qty: 1 0RF Rx Instructions: q6hrs PRN with albuterol treatment. long-term treatment albuterol sulfate 90 mcg/actuation HFA aerosol inhaler 2 inh INHALATION Q4H PRN (Reason: shortness of breath or wheezing) Qty: 18 1RF Discontinued aripiprazole 10 mg tablet 10 mg PO DAILY 30 Days Qty: 30 2RF Symbicort 160-4.5 mcg/actuation HFA aerosol inhaler 1 inh inhalation BID 30 Days Qty: 10.2 1RF Discharge Orders: Discharge Order (Routine); Ordered 12/23/23 Ordered By: [place] Referrals: [facility] [Other] (You have been referred. ) Meng Brumfield MD [Physician] - 12/25/23 7:30 am (One time hospital follow up safety visit with [facility]. After you will be made appointment with Dr. Brumfield. ) Cornelius Villegas MD [Primary Care Provider] - Discharge Diet: Regular Discharge Activity: Resume usual activity Patient Instructions: Naltrexone (By injection) (Vivitrol), Abuse of Alcohol (DC), Suicide Prevention (DC), Opioid Safety Discharge Attestations NPU Time Spent in Discharge Care*: less than 30 min Specific Discharge Activities: Specific discharge activities: educating patient, discussing with director of casework department/social workers/dc planners, d ocumenting/other paperwork and evaluating patient/reviewing data Coding Level of Care Code Acute Code for [facility] Fwd Diagnoses Suicidal ideation R45.851 Chronic post-traumatic stress disorder F43.12 Major depressive disorder, recurrent severe without psychotic features F33.2 Generalized anxiety disorder F41.1 Nicotine dependence, unspecified, uncomplicated F17.200 Methamphetamine use disorder, severe, in sustained remission F15.21 Cannabis use disorder, severe, dependence F12.20 Opioid use disorder, severe, in sustained remission F11.21
[2023-12-23 13:48] VITALS: BP 149/81; PULSE 83; RESP 16; TEMP 36.6; O2SAT 97
--- NOTE | 2023-12-23 16:03 | DCPLANNER ---
IMM was given to pt and placed in file.
== END 2023-12-23 14:10 | disposition home or self-care (01) | DRG 885 ==
LOC: ER 13:08 → NP 14:23
PROVIDERS: Admitting Provider Psychiatry & Neurology Psychiatry; Emergency Provider Emergency Medicine; PCP Family Medicine; Visit Provider Psychiatry & Neurology Psychiatry
DX: F33.2 Major depressive disorder, recurrent severe without psychotic features (principal); R45.851 Suicidal ideations; R45.850 Homicidal ideations; F10.20 Alcohol dependence, uncomplicated; Y90.6 Blood alcohol level of 120-199 mg/100 ml; F17.210 Nicotine dependence, cigarettes, uncomplicated; F43.12 Post-traumatic stress disorder, chronic; F41.1 Generalized anxiety disorder
CPT/HCPCS: 36415; 80053; 80306; 80307; 85025; 97150; 97165; 99285

== ENCOUNTER 2024-03-07 19:12 | Emergency (ER) | payer MEDICARE, MEDICAID, SELFPAY ==
[2023-06-11 08:53] VITALS: BP 151/92; BMI 24.9
[2024-03-07 19:16] VITALS: BP 141/99; PULSE 135; RESP 20; TEMP 36.7; O2SAT 97; BMI 25.1
--- NOTE | 2024-03-07 19:23 | ED_ITS ---
HPI - Alcohol General: Chief Complaint: Alcohol Stated Complaint: ETOH Time Seen by Provider: 03/07/24 19:15 History of Present Illness: 38-year-old intoxicated male presenting in handcuffs in police custody. We are asked to determine if the patient is fit for confinement. He has no physical symptoms. He is somewhat belligerent on interviewing, but is alert and oriented. Related Data Previous Rx's Medication Instructions Recorded Nebulizer with hose and supplies #1 ea 01/18/23 albuterol sulfate 90 mcg/actuation 2 inh inhalation Q4H PRN shortness 12/23/23 aerosol inhaler of breath or wheezing #18 grams thiamine mononitrate (vit B1) 100 100 mg PO DAILY 30 days #30 tabs 12/23/23 mg tablet (Vitamin B-1 (mononitrate)) naltrexone microspheres 380 mg 380 mg IM ONCE 1 month #1 ea 01/30/24 intramuscular suspension,extended release (Vivitrol) Allergies Allergy/AdvReac Type Severity Reaction Status Date / Time No Known Allergies Allergy Verified 01/30/24 13:00 [facility] ED PFSH: Medical History Depression Severe alcohol use disorder Arthritis History of broken collarbone surgically repaired x2 Tobacco use disorder, moderate, dependence No pertinent family history Lumbar stenosis with neurogenic claudication Psychiatric care Chronic pain Surgical History History of back surgery Family History Mother Diabetes Alpha galactosidase deficiency Lung disease copd, emphysema Other Hypertension Psychiatric illness Stroke Denies family history of CAD (coronary artery disease) Clotting disorder Dementia Hyperlipidemia Chronic kidney disease (CKD) Anesthesia complication Bleeding disorder Cancer Social History Smoking and tobacco/nicotine status: current every day tobacco/nicotine user cigarettes Packs smoked per day: 0.25 Years cigarettes smoked: 20 and smokeless tobacco Smokeless tobacco user: chewing tobacco Smokeless tobacco details: 1 can per week Quit status (tobacco/nicotine): has tried quititng Number of times tried to quit tobacco: 6 Second hand smoke exposure: Yes Alcohol intake: former Substance/Drug Use: current Substance/Drug use frequency: daily Other substance/drug use details: 05/13 last a month Adopted: No Caregiver/support person: No Lives independently: Yes Household members: spouse Housing: Other Details: [id number] Marital status: Number of children: 2 Number of grandchildren: 0 Highest education level completed: 10th Grade service: No Current occupational status: disabled Current occupational exposures/hazards: No Pets and animals: Yes Pets & animals: cat(s) Pets & animal details: BB Leisure activites: other Leisure activities details: TV, you tube, forging knives Sexually active: Yes Do you think of yourself as: Straight/Heterosexual Current gender identity: Male Marley/Buddhist: None Special marley needs: No Agree to transfusion: Yes Physical Exam Const: COMMON NORMALS: no acute distress GENERAL APPEARANCE: cooperative; not ill appearing and not frail appearing HENMT: COMMON NORMALS: normocephalic, atraumatic and Normal external nose present HEAD & SCALP: normocephalic and atraumatic FACE & SINUS: normal facial exam and face symmetric NOSE: Normal external nose present Eye: COMMON NORMALS: Equal, round and reactive pupils present and EOMs intact bilaterally PUPIL: Yes Equal, round and reactive pupils present Neck/C-Spine: GENERAL: Yes trachea midline Chest: CHEST: Yes Symmetrical chest wall rise Resp: COMMON NORMALS: normal respiratory effort, No retractions, No use of accessory muscles and clear to auscultation bilaterally AUSCULTATION: clear to auscultation bilaterally Cardio: COMMON NORMALS: regular rate and regular rhythm RATE: regular rate RHYTHM: regular rhythm GI: COMMON NORMALS: Normal to inspection, nondistended, normoactive bowel sounds present Extremity: COMMON NORMALS: no pedal edema Neuro: COLLINS COMA SCALE: document GCS findings [place] coma scale eye opening: Spontaneous [place] coma scale verbal response: Orientated [place] coma scale motor response: Obey commands [place] coma scale total score: 15 SENSORY EXAM: Yes extremities (intact) Psych: COMMON NORMALS: Normal thought process present ATTITUDE: Yes agitated ACTIVITY/MOTOR BEHAVIOR: Yes appropriate eye contact SPEECH: Yes slurred (Minimally) MOOD & AFFECT: Yes irritable THOUGHT PROCESS: Normal thought process present THOUGHT CONTENT: No delusions and No Hallucination(s) present ATTENTION/CONCENTRATION: Yes attention grossly intact and Yes concentration grossly intact MEMORY/COGNITION: Yes memory grossly intact and Yes cognition grossly intact INSIGHT: questionable JUDGEMENT: questionable Skin: COMMON NORMALS: no rashes or lesions noted GENERAL SKIN EXAM: no rashes or lesions noted Course Vital Signs: Vital signs: Vital Signs Temperature 98.1 F 03/07/24 19:16 Pulse Rate 135 H 03/07/24 19:16 Respiratory Rate 20 H 03/07/24 19:16 Blood Pressure 141/99 03/07/24 19:16 Pulse Oximetry 97 03/07/24 19:16 MDM - Alcohol Medical Decision Making The patient is awake and alert. He denies drug use. He has colorful, nonserious answers to medical history questions asked of him. If he has the wherewithal to attempt comedy with answering medical questions, he is alert and oriented, ambulatory without assistance, and uninjured. His heart rate and blood pressure are mildly elevated, but he was agitated on arrival. He is [place] now. He will be allowed discharge to police custody. Further medical testing is not necessary. No radiology studies performed this visit Discharge Plan Discharge Patient Disposition: Home Clinical Impression: Alcohol intoxication Condition: Stable Prescriptions: No Action Vivitrol 380 mg suspension,extended rel recon 380 mg IM ONCE 30 Days Qty: 1 11RF (DME) Nebulizer with hose and supplies See Rx Instructions .Route .MEDSUPPLY Qty: 1 0RF Rx Instructions: q6hrs PRN with albuterol treatment. long-term treatment Vitamin B-1 (mononitrate) 100 mg Tablet 100 mg PO DAILY 30 Days Qty: 30 1RF albuterol sulfate 90 mcg/actuation HFA aerosol inhaler 2 inh INHALATION Q4H PRN (Reason: shortness of breath or wheezing) Qty: 18 1RF Discharge Orders: Discharge ED (Routine); Ordered 03/07/24 Ordered By: Jason Holly Referrals: Cornelius Villegas MD [Primary Care Provider] - 4-7 days Patient Instructions: Alcohol Intoxication (ED), Opioid Safety, Pain Management Activity Restrictions/Additional Instructions: You have been determined medically stable based on the physical exam and interview. Coding Level of Care Code ED Front End Developer Javascript Html Css for Julito Brumfield
== END 2024-03-07 19:25 | disposition home or self-care (01) ==
PROVIDERS: Emergency Provider Emergency Medicine; PCP Family Medicine
DX: F10.129 Alcohol abuse with intoxication, unspecified (principal); F17.210 Nicotine dependence, cigarettes, uncomplicated
CPT/HCPCS: 99281

== ENCOUNTER 2024-04-15 14:38 | Emergency (ER) | payer MEDICARE, MEDICAID, SELFPAY ==
[2023-06-11 08:53] VITALS: BP 151/92; BMI 24.9
[2024-04-15 14:49] VITALS: BP 125/84; PULSE 77; RESP 15; TEMP 36.4; O2SAT 98; BMI 24.4
--- NOTE | 2024-04-15 15:26 | XR_ITS ---
WS: [id number] Exam: XR chest 1V portable [id number] Date/Time of Exam: 04/15/2024 3:28 PM Reason For Exam: sob/cough Comparison 03/24/2023. The lungs are clear and fully inflated. Normal cardiomediastinal silhouette and regional bony element s. XR/XR chest 1V portable [id number] IMPRESSION: 1. Negative chest.
--- NOTE | 2024-04-15 15:27 | W.ED.NAVMDI ---
HPI - Nausea/Vomiting/Diarrhea General: Chief complaint: Nausea/Vomiting/Diarrhea Stated complaint: headache vomitting Time Seen by Provider: 04/15/24 15:03 Source: patient Mode of arrival: ambulatory Limitations: no limitations History of Present Illness: Patient is a 38-year-old male who presents to the emergency department complaining of headaches and overall malaise for the past couple of days. Denies any known sick contacts. He has multiple sick report including cough, shortness of breath, nausea vomiting diarrhea, some abdominal pain, and fatigue. He has a history of severe alcohol use disorder but denies any recent alcohol or drug use. Denies any fevers that he knows of, has not been able to take his temperature. He has been able to tolerate food and drink. No other symptoms to report at this time. MD elicited complaint: nausea, vomiting, diarrhea and abdominal pain Onset (ago): day(s) Associated nausea: Yes Associated abdominal pain: Yes Location of pain: Diffuse Associated symtoms: Reports fatigue, malaise and nausea; Denies chest pain, diaphoresis, dizziness, dysuria, headache(s) or palpitations Related Data Home Medications Medication Instructions Recorded Confirmed naltrexone microspheres 380 mg 380 mg IM .[id number] 04/15/24 04/15/24 intramuscular suspension,extended release (Vivitrol) Previous Rx's Medication Instructions Recorded Nebulizer with hose and supplies #1 ea 01/18/23 albuterol sulfate 90 mcg/actuation 2 inh inhalation Q4H PRN shortness 03/12/24 aerosol inhaler of breath or wheezing #18 grams ondansetron 4 mg disintegrating 4 mg PO TID PRN nausea and 04/15/24 tablet vomiting #20 tabs Allergies Allergy/AdvReac Type Severity Reaction Status Date / Time No Known Allergies Allergy Verified 04/15/24 14:53 Review of Systems General: Reports: 10 or more systems reviewed and unremarkable except in HPI and below Const: Reports: body aches, change in appetite, fatigue and malaise; Denies: fever(s), chills, change in weight or diaphoresis ENMT: Denies: throat pain or hoarseness Card: Denies: chest pain, palpitations or lightheadedness Resp: Reports: dyspnea and non-productive cough; Denies: wheezing GI: Reports: abdominal pain, nausea, vomiting and diarrhea : Denies: flank pain, difficulty urinating, dysuria, urinary frequency or urinary urgency Musc: Denies: neck pain or back pain Skin/Breast: Denies: rash or new lesions Neuro: Denies: headache(s) or dizziness PFSH ED PFSH: Medical History Depression Severe alcohol use disorder Arthritis History of broken collarbone surgically repaired x2 Tobacco use disorder, moderate, dependence No pertinent family history Lumbar stenosis with neurogenic claudication Psychiatric care Chronic pain Surgical History History of back surgery Family History Mother Diabetes Alpha galactosidase deficiency Lung disease copd, emphysema Other Hypertension Psychiatric illness Stroke Denies family history of CAD (coronary artery disease) Clotting disorder Dementia Hyperlipidemia Chronic kidney disease (CKD) Anesthesia complication Bleeding disorder Cancer Social History Smoking and tobacco/nicotine status: current every day tobacco/nicotine user cigarettes Packs smoked per day: 0.25 Years cigarettes smoked: 20 and smokeless tobacco Smokeless tobacco user: chewing tobacco Smokeless tobacco details: 1 can per week Quit status (tobacco/nicotine): has tried quititng Number of times tried to quit tobacco: 6 Second hand smoke exposure: Yes Alcohol intake: former Substance/Drug Use: current Substance/Drug use frequency: daily Other substance/drug use details: 05/13 last a month Adopted: No Caregiver/support person: No Lives independently: Yes Household members: spouse Housing: Other Details: [id number] Marital status: Number of children: 2 Number of grandchildren: 0 Highest education level completed: 10th Grade service: No Current occupational status: disabled Current occupational exposures/hazards: No Pets and animals: Yes Pets & animals: cat(s) Pets & animal details: BB Leisure activites: other Leisure activities details: TV, you tube, forging knives Sexually active: Yes Do you think of yourself as: Straight/Heterosexual Current gender identity: Male Marley/Orthodox: None Special marley needs: No Agree to transfusion: Yes Physical Exam Const: COMMON NORMALS: patient oriented x3 and no limitations GENERAL APPEARANCE: cooperative and well developed ORIENTATION/CONSCIOUSNESS: Yes awake OTHER: Lying in position in the ER bed, appearing uncomfortable HENMT: COMMON NORMALS: normocephalic, atraumatic, hearing grossly normal bilaterally, Normal nasal mucous membranes and turbinates present, moist oral mucous membranes and oropharynx normal HEAD & SCALP: normocephalic and atraumatic NOSE: Normal nasal mucous membranes and turbinates present Eye: COMMON NORMALS: Equal, round and reactive pupils present, EOMs intact bilaterally and conjunctivae normal CONJUNCTIVA: Yes conjunctivae normal PUPIL: Yes Equal, round and reactive pupils present Neck/C-Spine: COMMON NORMALS: full ROM, supple and no JVD Resp: COMMON NORMALS: normal respiratory effort, No retractions and No use of accessory muscles AUSCULTATION: wheezes expiratory wheezes and throughout Cardio: COMMON NORMALS: no JVD, regular rate, regular rhythm, No clicks present (Cardio), No murmurs present (Cardio) and No rub (Cardio) RATE: regular rate RHYTHM: regular rhythm GI: COMMON NORMALS: Normal to inspection, nondistended, normoactive bowel sounds present, Soft to palpation and non-tender AUSCULTATION: Yes normoactive bowel sounds PALPATION: Yes Soft to palpation RECTAL EXAM: Yes deferred Extremity: COMMON NORMALS: normal to inspection, full ROM and capillary refill normal Neuro: COMMON NORMALS: patient oriented x3 Skin: COMMON NORMALS: no rashes or lesions noted GENERAL SKIN EXAM: no rashes or lesions noted Course Vital Signs: Vital signs: Vital Signs Temperature 97.5 F L 04/15/24 14:49 Pulse Rate 70 04/15/24 16:32 Respiratory Rate 16 04/15/24 16:32 Blood Pressure 126/77 04/15/24 16:32 Pulse Oximetry 100 04/15/24 16:32 Oxygen Delivery Me thod Room Air 04/15/24 16:32 MDM - Nausea/Vomiting/Diarrhea Medical Decision Making Patient presenting with vague symptoms of headache, nausea vomiting diarrhea, amongst other illness like symptoms. No sick contacts reported, his vitals were stable on arrival noted to be afebrile. Physical exam ultimately unremarkable, is a smoker and his lungs did have some expiratory wheezing though he was not in any respiratory distress and did not report to me any shortness of breath. His chest x-ray also normal. All of his blood work unremarkable for any signs of infection or other abnormalities. Did report relief of symptoms with simple dose of Zofran and some Tylenol, informed him that likely this is a viral syndrome and he needs to enact contagion precaution and continue treating conservatively. He requests prescription for Zofran, which is sent to his pharmacy. Gave proper return precautions such as persistence of fevers, or worsening shortness of breath or cough with production. He agrees and all of the questions and concerns addressed. COVID flu RSV swab resulted negative. Lab Data 04/15/24 16:30 04/15/24 16:30 Radiology Impressions Chest X-Ray 04/15/24 15:26 IMPRESSION: 1. Negative chest. Laboratory Results WBC 10.87 10^3/uL (3.29-11.43) 04/15/24 16:30 RBC 5.58 10^6/uL (3.85-5.65) 04/15/24 16:30 Hgb 16.30 g/dL (11.27-16.99) 04/15/24 16:30 Hct 49.9 % (37-53) 04/15/24 16:30 MCV 89.4 fl (82-101) 04/15/24 16:30 MCH 29.2 pg (27-33) 04/15/24 16:30 MCHC 32.7 g/dL (30-55) 04/15/24 16:30 RDW 13.0 % (12.1-15.1) 04/15/24 16:30 Plt Count 304 10^3/cmm (157-399) 04/15/24 16:30 MPV 9.3 fL (7.4-10.4) 04/15/24 16:30 Neut % (Auto) 77.9 % 04/15/24 16:30 Lymph % (Auto) 17.3 % 04/15/24 16:30 [place] % (Auto) 3.8 % 04/15/24 16:30 Eos % (Auto) 0.3 % 04/15/24 16:30 Baso % (Auto) 0.2 % 04/15/24 16:30 Neut # (Auto) 8.48 10^3/uL (1.8-7.7) H 04/15/24 16:30 Lymph # (Auto) 1.9 10^3/uL (0.8-4.8) 04/15/24 16:30 [place] # (Auto) 0.4 10^3/uL (0.2-0.9) 04/15/24 16:30 Eos # (Auto) 0.0 10^3/uL (0.0-0.8) 04/15/24 16:30 Baso # (Auto) 0.0 10^3/uL (0.0-0.1) 04/15/24 16:30 Nucleated RBC % (auto) 0 % 04/15/24 16:30 Nucleated RBCs # 0.0 /100WBC 04/15/24 16:30 Sodium 140 mmol/L (136-145) 04/15/24 16:30 Potassium 4.2 mmol/L (3.5-5.1) 04/15/24 16:30 Chloride 100 mmol/L (98-107) 04/15/24 16:30 Carbon Dioxide 27 mmol/L (22-29) 04/15/24 16:30 Anion Gap 17.2 (5-19) 04/15/24 16:30 BUN 11 mg/dL (6-20) 04/15/24 16:30 Creatinine 0.8 mg/dL (0.7-1.2) 04/15/24 16:30 GFR Calculation 107.1 mL/min (90-130) 04/15/24 16:30 Glucose 105 mg/dL (65-115) 04/15/24 16:30 Calculated Osmolality 290 mOsm/kg (285-295) 04/15/24 16:30 Calcium 10.0 mg/dL (8.5-10.5) 04/15/24 16:30 Total Bilirubin 0.3 mg/dL (0.15-1.2) 04/15/24 16:30 AST 16 U/L (0-40) 04/15/24 16:30 ALT 11 U/L (0-41) 04/15/24 16:30 Alkaline Phosphatase 77 U/L (40-130) 04/15/24 16:30 Total Protein 8.2 g/dL (6.6-8.7) 04/15/24 16:30 Albumin 5.0 g/dL (3.5-5.2) 04/15/24 16:30 Globulin 3.2 g/dL (1.3-4.6) 04/15/24 16:30 Lipase 23 U/L (13-60) 04/15/24 16:30 Urine Color Yellow (Yellow) 04/15/24 16:30 Urine Appearance Clear (CLEAR) 04/15/24 16:30 Urine pH 6.0 (5-7) 04/15/24 16:30 Ur Specific [place] 1.022 (1.005-1.030) 04/15/24 16:30 Urine Protein Negative (Negative) 04/15/24 16:30 Urine Glucose (UA) Negative (Normal) 04/15/24 16:30 Urine Ketones 2+ (Negative) H 04/15/24 16:30 Urine Blood Negative (Negative) 04/15/24 16:30 Urine Nitrate Negative (Negative) 04/15/24 16:30 Urine Bilirubin Negative (Negative) 04/15/24 16:30 Urine Urobilinogen 1.0 mg/dL (Negative) 04/15/24 16:30 Ur Leukocyte Esterase Negative (Negative) 04/15/24 16:30 Urine RBC 0-2 /hpf (0-2) 04/15/24 16:30 Urine WBC 0-5 /hpf (0-5) 04/15/24 16:30 Ur Squamous Epith Cells 0-5 /hpf (0-5) 04/15/24 16:30 Amorphous Sediment Not Reportable 04/15/24 16:30 Urine Bacteria None seen /hpf (NONE) 04/15/24 16:30 Hyaline Casts 0-4 /lpf H 04/15/24 16:30 Urine Opiates Screen Negative ng/mL (Negative) 04/15/24 16:30 Ur Barbiturates Screen Negative ng/mL (Negative) 04/15/24 16:30 Ur Phencyclidine Scrn Negative ng/mL (Negative) 04/15/24 16:30 Ur Amphetamines Screen Negative ng/mL (Negative) 04/15/24 16:30 U Benzodiazepines Scrn Negative ng/mL (Negative) 04/15/24 16:30 Urine Cocaine Screen Negative ng/mL (Negative) 04/15/24 16:30 U Marijuana (THC) Screen Negative ng/mL (Negative) 04/15/24 16:30 Coronavirus (PCR) Negative (Negative) 04/15/24 16:30 Influenza A (PCR) Negative (Negative) 04/15/24 16:30 Influenza Type B (PCR) Negative (Negative) 04/15/24 16:30 RSV (PCR) Negative (Negative) 04/15/24 16:30 All radiology interpretation(s) finalized by discharge Discharge Plan Discharge Patient Disposition: Home Clinical Impression: Viral syndrome Condition: Stable Prescriptions: New ondansetron 4 mg tablet,disintegrating 4 mg PO TID PRN (Reason: nausea and vomiting) Qty: 20 0RF No Action (DME) Nebulizer with hose and supplies See Rx Instructions .Route .MEDSUPPLY Qty: 1 0RF Rx Instructions: q6hrs PRN with albuterol treatment. long-term treatment albuterol sulfate 90 mcg/actuation HFA aerosol inhaler 2 inh INHALATION Q4H PRN (Reason: shortness of breath or wheezing) Qty: 18 1RF Vivitrol 380 mg suspension,extended rel recon 380 mg IM .[id number] Discharge Orders: Discharge ED (Routine); Ordered 04/15/24 Ordered By: Luis Alberto Dodd Referrals: Cornelius Villegas MD [Primary Care Provider] - Patient Instructions: Viral Syndrome (ED) Activity Restrictions/Additional Instructions: Please drink plenty of fluids. Zofran for nausea. Alternate ibuprofen and Tylenol for any headaches or bodyaches. Contagion precaution. Follow-up with primary care provider and return with any new or concerning symptoms. See attached patient instructions for further education. Coding Level of Care Code ED Family Centered Specialist for Julito Brumfield
[2024-04-15] MEDS: ondansetron 4 MG Tablet PO (16:17)
[2024-04-15] MEDS: acetaminophen 500 mg Tablet 1000 MG PO (16:17)
[2024-04-15 16:32] VITALS: BP 126/77; PULSE 70; RESP 16; O2SAT 100
[2024-04-15 16:44] LABS: Bilirubin Urine Negative (Negative); Blood Urine Negative (Negative); Glucose Urine UA Negative (Normal); Ketones Urine 2+ (Negative); Leukocyte Esterase Urine Negative (Negative); Nitrate Urine Negative (Negative); Protein Urine Negative (Negative); Specific Gravity, Urine 1.022 (1.005-1.030); Urine Appearance Clear (CLEAR); Urine Color Yellow (Yellow)
[2024-04-15 16:50] LABS: Add Urine Microscopic? YES; Bacteria Urine None Seen /hpf; Hyaline Casts Urine 0-4 /lpf; RBC Urine 0-2 /hpf (0-2); Squamous Epithelial Cell Urine 0-5 /hpf (0-5); WBC Urine 0-5 /hpf (0-5)
[2024-04-15 16:53] LABS: Amphetamines Screen Urine Negative (Negative); Barbiturates Screen Urine Negative (Negative); Benzodiazepines Screen Urine Negative (Negative); Cocaine Screen Urine Negative (Negative); Opiate Screen Urine Negative (Negative); PCP Screen Urine Negative (Negative); THC Screen Urine Negative (Negative)
[2024-04-15 16:54] LABS: Basophils % 0.2 %; Eosinophils % 0.3 %; Hematocrit 49.9 % (37-53); Lymphocytes # 1.9 10^3/uL (0.8-4.8); Lymphocytes % 17.3 %; Mean Corpuscular HGB Conc 32.7 g/dL (30-55); Mean Corpuscular Hemoglobin 29.2 pg (27-33); Mean Corpuscular Volume 89.4 fl (82-101); Mean Platelet Volume 9.3 fL (7.4-10.4); Monocytes # 0.4 10^3/uL (0.2-0.9); Monocytes % 3.8 %; Neutrophils # 8.48 10^3/uL (1.8-7.7); Neutrophils % 77.9 %; Nucleated Red Blood Cells % 0 %; Platelet Count 304 10^3/cmm (157-399); Red Blood Count 5.58 10^6/uL (3.85-5.65); White Blood Count 10.87 10^3/uL (3.29-11.43)
[2024-04-15 17:08] LABS: Alanine Aminotransferase 11 U/L (0-41); Alkaline Phosphatase 77 U/L (40-130); Anion Gap 17.2 (5-19); Aspartate Amino Transferase 16 U/L (0-40); Blood Urea Nitrogen 11 mg/dL (6-20); Carbon Dioxide 27 mmol/L (22-29); Chloride 100 mmol/L (98-107); Creatinine Clr Calc Pharmacy 133.5618; Globulin 3.2 g/dL (1.3-4.6); Glomerular Filtration Rate 107.1 mL/min (90-130); Glucose 105 mg/dL (65-115); Lipase 23 U/L (13-60); Osmolality Calculated 290 mOsm/kg (285-295); Potassium 4.2 mmol/L (3.5-5.1); Sodium 140 mmol/L (136-145); Total Bilirubin 0.3 mg/dL (0.15-1.2); Total Protein 8.2 g/dL (6.6-8.7)
[2024-04-15 17:21] LABS: Covid PCR NEGATIVE (Negative); Influenza A NEGATIVE (Negative); Influenza B NEGATIVE (Negative); Respiratory Syncytial Virus Ce NEGATIVE (Negative)
[2024-04-15 17:50] VITALS: BP 144/98; PULSE 77; RESP 14; O2SAT 96
== END 2024-04-15 17:51 | disposition home or self-care (01) ==
PROVIDERS: Emergency Provider Physician Assistant; PCP Family Medicine
DX: B34.9 Viral infection, unspecified (principal); Z11.52 Encounter for screening for COVID-19; F17.220 Nicotine dependence, chewing tobacco, uncomplicated
CPT/HCPCS: 0241U; 71045; 80053; 80306; 81001; 83690; 85025; 99284; Q0162

== ENCOUNTER → 2024-05-26 14:15 | Outpatient (BNVA) | payer MEDICARE, SELFPAY ==
[2023-06-11 08:53] VITALS: BP 151/92; BMI 24.9
== END ==
PROVIDERS: PCP Family Medicine; Visit Provider Physician Assistant
DX: S83.8X2D Sprain of other specified parts of left knee, subsequent encounter; M23.312 Other meniscus derangements, anterior horn of medial meniscus, left knee; X58.XXXD Exposure to other specified factors, subsequent encounter
CPT/HCPCS: 73560; 73565; 99213

== ENCOUNTER 2024-08-10 07:25 | Outpatient (CLI) | payer MEDICARE, MEDICAID, SELFPAY ==
[2023-06-11 08:53] VITALS: BP 151/92; BMI 24.9
--- NOTE | 2024-08-10 07:42 | MR_ITS ---
WS: [id number] MRI LEFT KNEE HISTORY: LEFT KNEE DERANGEMENT COMPARISON: Radiograph 05/26/2024 Anterior cruciate ligament: Intact. Posterior cruciate ligament: Intact. Medial collateral ligament: Intact. Posterior lateral corner structures: Intact. Medial menisci: Intact. Normal signal, size and shape. Lateral meniscus: There is a small amount of increased T2 signal in the posterior horn. Signal is intermediate and does not definitely connect to an articular surface. Extensor mechanism: Distal quadriceps tendon and patellar tendons are intact. Fluid and soft tissue: No joint effusion. Small Marino's cyst. Osseous and articular structures: Patellofemoral compartment: Normal. Medial compartment: Lateral compartment: Minimal surface fraying of the cartilage. No marrow edema. No full-thickness cartilage defects. MR/MR knee LT wo con* [id number] IMPRESSION: 1. No ACL or meniscal tear. 2. Intermediate signal posterior horn lateral meniscus. Most consistent with i ntrasubstance degeneration. There is no extension to the articular surface. 3. Small Marino's cyst. 4. Minimal cartilage fraying in the lateral compartment.
== END 2024-08-10 07:26 | disposition home or self-care (01) ==
PROVIDERS: PCP Family Medicine; Visit Provider Physician Assistant
DX: M71.22 Synovial cyst of popliteal space [Baker], left knee (principal); R93.6 Abnormal findings on diagnostic imaging of limbs
CPT/HCPCS: 73721